=== PATIENT | female | born 1970 | race Caucasian/White ===

== ENCOUNTER 2025-03-09 06:34 | Day surgery (SDC) | payer MEDICAID, SELFPAY ==
--- NOTE | 2025-03-02 17:15 | PAT.ANESEVAL ---
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 When Was Last Pacemaker Check QUESTION #4 FULL TEXT: You/Your Family Experience fever (hyperthermia) with Anesthesia Last Oral Intake Last Oral intake: Last Oral Intake NPO since Meds taken in AM with sips of water? 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 director Female Yes 02/28/25 08:30 HX of Motion Sickness Yes 02/28/25 08:30 HX of N/V After Surgery No 02/28/25 08:30 Non-Smoker Yes 02/28/25 08:30 Duration of Surgery greater No 02/28/25 08:30 than 60 minutes Number of Risk Factors 3 02/28/25 08:30 PONV Score Moderate Risk 02/28/25 08:30 Respiratory Assessment Respiratory Assessment - chemical plant technical director: Respiratory Tract Infection Hx - chemical plant technical director Hx Respiratory Tract Infection No 02/28/25 08:30 STOP Sleep Apnea STOP Sleep Apnea - chemical plant technical director: STOP Sleep Apnea - chemical plant technical director Hx Hypertension No 02/28/25 08:30 Hx Sleep Apnea No 02/28/25 08:30 CPAP BIPAP Do you snore loudly (louder No 02/28/25 08:30 than talking or can be heard Do you often feel tired/ No 02/28/25 08:30 fatigued/ sleepy during daytime? Has anyone observed you stop No 02/28/25 08:30 breathing during sleep? STOP Results Negative 02/28/25 08:30 QUESTION #5 FULL TEXT : Do you snore loudly (louder than talking or can be heard through closed doors)? 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 Specify any problems Hx of Preganancy in last 3 No 02/28/25 08:30 Months Nurse Filling Out Transfusion DSCHRIBER 02/28/25 08:30 & Questions: Date: 02/28/25 02/28/25 08:30 Time: 02/28/25 08:30 Patient unable to answer at this time (ie. confused, unrespo /Reproduction History /Reproductive History - chemical plant technical director: /Reproductive Hx- chemical plant technical director Hx Now No 02/28/25 08:30 Gestational Age (in weeks): EDC: Hx Hx Para Hx Section SAB No 02/28/25 08:30 PFSH Medical History (Updated 03/02/25 @ 11:49 by Julita Bernal) Hx of echocardiogram Fear of needles Depression Anxiety Back pain Loss of consciousness Syncope Non-smoker Cardiology follow-up encounter Home Medications Medication Instructions Recorded Last Taken Type sertraline 100 mg tablet 100 mg PO QHS 02/28/25 Unknown History Allergy/AdvReac Type Severity Reaction Status Date / Time prochlorperazine (From AdvReac Intermediate Other Verified 02/28/25 08:27 Compazine) tramadol (From [facility]) AdvReac Intermediate Nausea/Vom/ Verified 02/28/25 08:27 Diarrhea Surgical History (Updated 02/28/25 @ 08:40 by Julita Bernal) Hx of tonsillectomy Hx laparoscopic cholecystectomy History of Social History Smoking Status: Never smoker Audit: Pertinent Findings Pertinent Findings EKG Perinent findings: April 14, 2022. Normal sinus rhythm. Echo (EF%) pertinent findings: 04/10/2022. EF is 73%. Right ventricular systolic function is normal. No significant valvular abnormalities. Consult pertinent findings: 04/14/2022. Dr. Washington–cardiology. 1. Vasovagal syncope-patient had episode at age 15 and now a repeat episode when walking to a hot room. All symptoms consistent with vasovagal presyncope. Neurology agrees with this assessment. Pathophysiology and early recognition strategies discussed. Last echo performed April 10, 2022 was normal. Recommendation Anesthesia Recommendation Anesthesia recommendation: OPTIMIZED for anesthesia
[2025-03-09] VITALS (7 sets, daily range): BP systolic 111–116; BP diastolic 60–76; PULSE 77–81; RESP 16–18; TEMP 36.3–36.8; O2SAT 94–98; BMI 25.4
--- OUTSIDE RECORDS SUMMARY | 2025-03-09 06:40 | XMS RPT_ITS | CCD ---
Author Organization [facility] Care Team Providers Care Rover Tender Name Role Phone Agustina Kay MD Primary Care Provider AGUSTINA KAY Primary Care Unavailable MD YOHAN, LION.Joey Attending Unavailabl e Agustina Kay MD Primary Care Provider Agustina Kay MD Primary Care Provider Morgan PRODUCT ACCOUNTANT.TRUCK ENGINE ASSEMBLER, Renuka Unavailable Aurelio PRODUCT ACCOUNTANT.FUR DYER, Mayra Unavailable Aurelio PRODUCT ACCOUNTANT.FUR DYER, Mayra Unavailable Aurelio PRODUCT ACCOUNTANT.FUR DYER, Mayra Unavailable Morgan PRODUCT ACCOUNTANT.TRUCK ENGINE ASSEMBLER, Renuka Unavailable Talampas, Agustina D Primary Care Unavailable Wiswell, Ermias Referring Unavailable Wiswell, Ermias Attending Unavailable WISWELL, ERMIAS Referring Unavailable TALAMPAS, AGUSTINA D Primary Care Unavailable WISWELL, ERMIAS Attending Unavailable TALAMPAS, AGUSTINA D Primary Care Unavailable TALAMPAS, AGUSTINA D Primary Care Unavailable WISWELL, ERMIAS Attending Unavailable WISWELL, ERMIAS Referring Unavailable WISWELL, ERMIAS Referring Unavailable TALAMPAS, AGUSTINA D Primary Care Unavailable WISWELL, ERMIAS Attending Unavailable TALAMPAS, AGUSTINA D Primary Care Unavailable WISWELL, ERMIAS Referring Unavailable TALAMPAS, AGUSTINA D Primary Care Unavailable TALAMPAS, AGUSTINA D Primary Care Unavailable TALAMPAS, AGUSTINA D Attending Unavailable TALAMPAS, AGUSTINA D Primary Care Unavailable TALAMPAS, AGUSTINA D Attending Unavailable Allergies Allergy Classification Reported Allergen(s) Allergy Type Date of Onset Reaction(s) Facility (20 sources) Azithromycin; Translations: [AZITHROMYCIN] Drug Allergy 5 Diarrhea [facility] Work Phone: (20 sources) methylPREDNISolone; Translations: [METHYLPREDNISOLONE] Drug Allergy 2 Other: See Comments [facility] Work Phone: (20 sources) Prochlorperazine; Translations: [PROCHLORPERAZINE EDISYLATE] Drug Allergy 5 Mental Status Change [facility] (20 sources) traMADol; Translations: [TRAMADOL HCL] Drug Allergy 5 Vomiting [facility] (20 sources) zolpidem; Translations: [ZOLPIDEM] Drug Allergy Other: See Comments [facility] Work Phone: (1 source) Prochlorperazine Drug Allergy 5 [facility] Rep[facility] (1 source) traMADol Drug Allergy 5 [facility] Medications Current Medications Medication Drug Class(es) Dates Sig (Normalized) Sig (Original) ALPRAZolam 0.25 mg oral tablet (20 sources) Benzodiazepine Start: 10-18-2024 End: 03-13-2025 take 1 tablet by mouth twice daily as needed for anxiety ALPRAZolam (XANAX) 0.25 mg tablet Indications: Anxiety and depression Take 1 tablet by mouth two times a day as needed for anxiety for up to 60 days. 40 tablet 01/12/2025 03/13/2025 Active Start: 04-03-2024 End: 09-17-2024 take 1 tablet by mouth twice daily as needed for anxiety ALPRAZolam (XANAX) 0.25 mg tablet Indications: Anxiety and depression Take 1 tablet by mouth two times a day as needed for anxiety for up to 60 days. 40 tablet 07/19/2024 09/17/2024 Active Start: 05-25-2023 End: 03-03-2024 take 1 tablet by mouth twice daily as needed for anxiety ALPRAZolam (XANAX) 0.25 mg tablet Indications: Anxiety and depression Take 1 tablet by mouth two times a day as needed for anxiety for up to 60 days. 40 tablet 01/03/2024 03/03/2024 Active Start: 01-06-2022 End: 02-15-2023 take 1 tablet by mouth twice daily as needed for anxiety ALPRAZolam (XANAX) 0.25 mg tablet Indications: Anxiety and depression Take 1 tablet by mouth twice daily as needed for anxiety for up to 60 days. 40 tablet 0 06/08/2022 10/01/2022 Discontinued Start: 06-30-2021 take 1 tablet by kera th twice daily as needed for anxiety ALPRAZolam (XANAX) 0.25 mg tablet Indications: Anxiety and depression Take 1 tablet by mouth twice daily as needed for anxiety for up to 60 days. 40 tablet 0 06/30/2021 Active Comment on above: Take 1 tablet by kera th twice daily as needed for anxiety for up to 60 days. Take 1 tablet by kera th two times a day as needed for anxiety for up to 60 days. ondansetron 4 mg disintegrating oral tablet (14 sources) Serotonin-3 Receptor Antagonist Start: 05-04-20 End: 01-13-20 take 1 tablet by mouth every six hours as needed for nausea ondansetron orally disintegrating (ZOFRAN ODT) 4 mg disintegrating tablet Indications: Motion sickness, sequela Take 1 tablet by mouth every 6 hours as needed for nausea/vomiting. 12 tablet 01/12/2025 Active Comment on above: Take 1 tablet by kera th every 6 hours as needed for nausea/vomiting. perflutren lipid microspheres 1.3 mL in NaCl (PF) 0.9% 10 mL injection (DEFINITY) (14 sources) Start: 04-06-20 End: 07-06-19 24 perflutren lipid microspheres 1.3 mL in NaCl (PF) 0.9% 10 mL injection (DEFINITY) sertraline 100 mg oral tablet (20 sources) Serotonin Reuptake Inhibitor Start: 07-01-19 End: 01-13-20 take 1 tablet by mouth once daily sertraline (ZOLOFT) 100 mg tablet Indications: Anxiety and depression Take 1 tablet by mouth once daily. 90 tablet 3 01/12/2025 Active Start: 04-06-2022 End: 07-01-2022 take 1 tablet by mouth once daily sertraline (ZOLOFT) 50 mg tablet Indications: Anxiety and depression Take 1 tablet by mouth once daily. 90 tablet 3 04/06/2022 07/01/2022 Discontinued Start: 07-11-2021 End: 04-06-2022 take 1 tablet by mouth once daily sertraline (ZOLOFT) 100 mg tablet Indications: Anxiety and depression Take 1 tablet by mouth once daily. 90 tablet 3 11/07/2021 04/06/2022 Discontinued Comment on above: Take 1 tablet by kera once daily. 125 ml sodium chloride 9 mg/ml prefilled syringe (14 sources) Start: 04-06-2022 End: 07-06-2023 sodium chloride 0.9 % (flush) 10 mL (BD POSIFLUSH) Problems Active Problems Problem Classification Problem Date Documented Da te Episodic/Chronic Anxiety disorders (20 sources) Mixed anxiety and depressive disorder; Translations: [Anxiety disorder, unspecified] Onset: 03-30-2005 Chronic Coagulation and hemorrhagic disorders (20 sources) Platelet count below reference range; Translations: [Thrombocytopenia, unspecified] Onset: 09-15-2010 09-15-2010 Chronic Coma; stupor; and brain damage (1 source) Loss of consciousness; Translations: [Unspecified coma] Episodic Epilepsy; convulsions (2 sources) Unspecified convulsions; Translations: [Seizure] Onset: 04-03-2022 Episodic Immunizations and screening for infectious disease (6 sources) Viral screening status; Translations: [Encounter for screening for other viral diseases] Onset: 01-12-2025 Episodic Menstrual disorders (1 source) Irregular menstruation, unspecified; Translations: [Irregular menstruation, unspecified] Onset: 03-06-2025 Chronic Mood disorders (12 sources) Depressive disorder; Translations: [Other specified depressive episodes] Onset: 03-30-2005 03-30-2005 Chronic Mood disorders (1 source) Mood disorders; Translations: [Anxiety and depression] Onset: 07-31-2022 Nonmalignant breast conditions (2 sources) Breast finding ; Translations: [Dense breasts] 01-03-2024 Episodic Other aftercare (1 source) Long-term current use of drug therapy; Translations: [Other buttermaker helper (current) drug therapy] 07-19-2024 Episodic Other female genital disorders (1 source) Other specified abnormal uterine and vaginal bleeding; Translations: [DUB (dysfunctional uterine bleeding)] Onset: 03-06-2025 Chronic Other injuries and conditions due to external causes (1 source) Motion sickness; Translations: [Motion sickness, sequela] 01-12-2025 Episodic Other injuries and conditions due to external causes (1 source) Motion sickness, sequela; Translations: [Motion sickness, sequela] Onset: 01-12-2025 Episodic Other non-traumatic joint disorders (1 source) Shoulder pain; Translations: [Pain in right shoulder] Episodic Other nutritional; endocrine; and metabolic disorders (1 source) Cholesterol level - finding; Translations: [Lipoprotein deficiency] 07-19-2024 Chronic Other nutritional; endocrine; and metabolic disorders (1 source) Overweight; Translations: [Overweight (BMI 25.0-29.9)] Onset: 03-06-2025 Episodic Other screening for suspected conditions (not mental disorders or infectious disease) (20 sources) Patient encounter status; Translations: [Encounter for screening for diabetes mellitus] Onset: 04-14-2022 Episodic Spondylosis; intervertebral disc disorders; other back problems (1 source) Spasm of back muscles; Translations: [Muscle spasm of back] 01-03-2024 Episodic Unclassified (1 source) Pre-Op Visit Onset: 03-05-2025 Past or Other Problems Problem Classification Problem Date Documented Date Episodic/Chronic Other circulatory disease (10 sources) Cardiovascular finding; Translations: [Other specified symptoms and signs involving the circulatory and respiratory systems] Onset: 03-30-2005 Resolved: 12-09-2015 12-09-2015 Episodic Other complications of (10 sources) Multigravida of advanced maternal age; Translations: [Supervision of elderly multigravida, unspecified trimester] Onset: 06-10-2010 Resolved: 01-19-2011 01-19-2011 Episodic Other complications of (10 sources) Poor growth affecting management; Translations: [Maternal care for other known or suspected poor growth, unspecified trimester, not applicable or unspecified] Onset: 06-10-2010 Resolved: 01-19-2011 01-19-2011 Episodic Other complications of (10 sources) Mild hyperemesis gravidarum; Translations: [Mild hyperemesis gravidarum] Onset: 06-10-2010 Resolved: 01-19-2011 01-19-2011 Episodic Other connective tissue disease (17 sources) Left rotator cuff syndrome; Translations: [Unspecified rotator cuff tear or rupture of left shoulder, not specified as traumatic] Onset: 07-31-2022 Episodic Other endocrine disorders (10 sources) Hypoglycemia; Translations: [Hypoglycemia, unspecified] Onset: 03-30-2005 Resolved: 12-09-2015 12-09-2015 Chronic Other and delivery including normal (10 sources) Normal ; Translations: [Encounter for supervision of other normal , unspecified trimester] Onset: 06-10-2010 Resolved: 01-19-2011 01-19-2011 Episodic Residual codes; unclassified (20 sources) Insomnia; Translations: [Insomnia, unspecified] Onset: 03-30-2005 03-30-2005 Episodic Syncope (20 sources) Syncope and collapse; Translations: [Syncope] Onset: 04-03-2022 Episodic Unclassified (1 source) Patient encounter status 08-10-2024 Results Test Name Value Interpretation Reference Range Facility T3Free SerPl-mCncon 03-06-20 25 Free T3 [Mass/Vol] 3.0 pg/mL Normal 2.3-4.1 [facility] Comment on above: Order Comment: Speci nicholas Type: BLOOD SPECIMENOrdering Facility: [facility] Address: [address] [place] [address] Performed By: #### 3 051-0, 3016-3, 3027 ####[facility] LABCLIA [id number] [place] [address] [place] T4 Free SerPl-mCncon 025 Free T4 [Mass/Vol] 1.0 ng/dL Normal 0.9-1.7 [facility] Comment on above: Order Comment: Galeni nicholas Type: BLOOD SPECIMENOrdering Facility: [facility] Address: [address] [place] [address] Performed By: #### 3 051-0, 3016-3, 7 ####[facility] LABCLIA [id number] [place] [address] [place] TSH SerPl-aCncon 03-06-2025 TSH Qn 1.800 m[IU]/L Normal 0.270-4.200 [facility] Comment on above: Order Comment: Joelle peterson Type: BLOOD SPECIMENOrdering Facility: [facility] Address: [address] [place] [address] Performed By: #### 3 051-0, 3016-3, 3024-7 ####[facility] LABCLIA [id number] [address] [facility] CNOVon 03-05-2025 CNOV Office Visit (OBGYWM ) ALISHAMIKHAIL Robles ([id number]) 1970 F Date Time Provider Department 03/05/25 4:20 PM ERMIAS BETTENCOURT OBGYWM During your visit today, we recorded the following information about you: Pulse Respiration Blood pressure Weight 79/minute 14/minute 108/76 75.6 kg Height 1.727 m Ermias Bettencourt MD 03/06/2025 9:51 AM Signed DATE OF SERVICE: March 05, 2025 PROBLEM: DUB, polyp on pelvic US, stenotic cervix DIAGNOSIS: as above PAST SURGICAL HISTORY: PAST SURGICAL HISTORY Procedure Laterality Date DELIVERY ONLY 10/30/2003 , low cervical DELIVERY ONLY 2010 , low transverse CHOLECYSTECTOMY 2001 LIG/TRNSXJ FLP TUBE ABDL/VAG APPR UNI/BI 2010 Tubal ligation PAST SURGICAL HISTORY OF WISDOM TEETH EXTRACTION TONSILLECTOMY PRIMARY/SECONDARY PAST MEDICAL HISTORY: PAST MEDICAL HISTORY Diagnosis Date Dysthymic disorder Depression (non-psychotic) Mitral valve disorders(424.0) pt. questions. SUBJECTIVE: Patient had an episode of heavy prolonged bleeding. Picked up Aygestin rx but bleeding stopped so has not needed to start it. SOCIAL HISTORY: SOCIAL HISTORY[1] ALLERGIES Allergen Reactions Ambien [Zolpidem] Other: See Comments Sleep walking and eating in middle of the night Compazine [Prochlor* Mental Status Change Medrol [Methylpredn* Other: See Comments Possible rash/dermatitis Ultram [Tramadol Hc* Vomiting Zithromax [Azithrom* Diarrhea Current Outpatient Medications on File Prior to Visit Medication Sig norethindrone (AYGESTIN) 5 mg tablet Take 1 tablet by mouth as directed. one by mouth tid x 3 days, bid x 3 days, then daily ALPRAZolam (XANAX) 0.25 mg tablet Take 1 tablet by mouth two times a day as needed for anxiety for up to 60 days. ondansetron orally disintegrating (ZOFRAN ODT) 4 mg disintegrating tablet Take 1 tablet by mouth every 6 hours as needed for nausea/vomiting. sertraline (ZOLOFT) 100 mg tablet Take 1 tablet by mouth once daily. No current facility-administered medications on file prior to visit. OBJECTIVE: VITALS: BP 108/76 Pulse 79 Resp 14 Ht 172.7 cm (5' 8") Wt 75.6 kg (166 lb 9.6 oz) LMP 01/14/2025 SpO2 98% BMI 25.33 kg/m? HEENT: Normocephalic, atraumatic, Mucus membranes moist without lesions. SKIN: No lesions. CHEST: Clear to auscultation. No wheezes or rales. Good air exchange. HEART: Regular rate and rhythm No S3 or S4. No gallops or rubs. BACK: Nontender. ABDOMEN: Non-distended. LOWER EXTREMITIES: There was no pitting edema, no palpable cords and no skin changes. ASSESSMENT: pre op PLAN: 1) Reviewed pelvic ultrasound findings and and questions answered. Discussed r/b/a hysteroscopy, DANDC, polypectomy. Patient declines progesterone IUD at this time. The rationale for the proposed surgery was discussed in addition to risks, benefits, and alternatives. General pre- and post-operative care was reviewed. Questions were answered. After discussion, the patient indicated a desire to proceed with the planned surgery. Patient would like thyroid labs checked. Pre procedural Cytotec rx sent. Ermias Bettencourt DO Medical Decision Making: Problems: Moderate: New problem with uncertain prognosis Data: Unique test(s) ordered: 3+ Risk: Moderate: Decision on minor surgery w/ risk factors and Drug management Medical Decision Making Level: 4 - Moderate [1] Social History Tobacco Use Smoking status: Never Smokeless tobacco: Never Vaping Use Vaping status: Never Used Substance Use Topics Alcohol use: No Drug use: No Allergies As of Date: 03/05/2025 Noted Allergy Reaction AMBIEN (ZOLPIDEM) 14 - Other: See Comments Comments: Sleep walking and eating in middle of the night COMPAZINE (PROCHLORPERAZINE EDISY*03/12/2005 1 - Mental Status Change MEDROL (METHYLPREDNISOLONE) 10/20/2011 14 - Other: See Comments Comments: Possible rash/dermatitis ULTRAM (TRAMADOL HCL) 03/12/2005 11 - Vomiting ZITHROMAX (AZITHROMYCIN) 04/16/2005 6 - Diarrhea Date Reviewed: 03/05/2025 Reviewed by: Marisol Parikh MA - Fully Assessed Reason for Visit: Pre-Op Visit [1235] Primary Visit Diagnosis:DUB (dysfunctional uterine bleeding) [N93.8] Other Visit Diagnoses:Overweight (BMI 25.0-29.9) [E66.3] Irregular menstruation, unspecified [N92.6] Stenotic cervical os [N88.2] Endocervical polyp [N84.1] Order(s):THYROID STIMULATING HORMONE [SQTSH] Order #: [id number] FUTURE T4 FREE/FREE THYROXINE [SQFT4] Order #: [id number] FUTURE T3, FREE [SQFREET3] Order #: [id number] FUTURE miSOPROStol (CYTOTEC) 200 mcg tabletUse 2 tablets vaginally as directed for [address] 2 tablets vaginally qhs before the procedure and 2 the morning ofDisp: 4 tabletRfl: 0 Prescriptions as of 03/06/2025 - miSOPROStol (CYTOTEC) 200 mcg tablet Use 2 tablets vaginally as directed for [address] 2 tablets vaginal (more content not included)... Normal [facility] HISTORY PHYSICALon HISTORY PHYSICAL HNO ID: [id number] Author: ERMIAS BETTENCOURT MD Service: ? Author Type: Physician Type: H&P Filed: 03/06/2025 09:51 Note Text: DATE OF SERVICE: March 05, 2025 PROBLEM: DUB, polyp on pelvic US, stenotic cervix DIAGNOSIS: as above PAST SURGICAL HISTORY: PAST SURGICAL HISTORY Procedure Laterality Date DELIVERY ONLY 10/30/2003 , low cervical DELIVERY ONLY 2010 , low transverse CHOLECYSTECTOMY 2001 LIG/TRNSXJ FLP TUBE ABDL/VAG APPR UNI/BI 2010 Tubal ligation PAST SURGICAL HISTORY OF WISDOM TEETH EXTRACTION TONSILLECTOMY PRIMARY/SECONDARY PAST MEDICAL HISTORY: PAST MEDICAL HISTORY Diagnosis Date Dysthymic disorder Depression (non-psychotic) Mitral valve disorders(424.0) pt. questions. SUBJECTIVE: Patient had an episode of heavy prolonged bleeding. Picked up Aygestin rx but bleeding stopped so has not needed to start it. SOCIAL HISTORY: SOCIAL HISTORY[1] ALLERGIES Allergen Reactions Ambien [Zolpidem] Other: See Comments Sleep walking and eating in middle of the night Compazine [Prochlor* Mental Status Change Medrol [Methylpredn* Other: See Comments Possible rash/dermatitis Ultram [Tramadol Hc* Vomiting Zithromax [Azithrom* Diarrhea Current Outpatient Medications on File Prior to Visit Medication Sig norethindrone (AYGESTIN) 5 mg tablet Take 1 tablet by mouth as directed. one by mouth tid x 3 days, bid x 3 days, then daily ALPRAZolam (XANAX) 0.25 mg tablet Take 1 tablet by mouth two times a day as needed for anxiety for up to 60 days. ondansetron orally disintegrating (ZOFRAN ODT) 4 mg disintegrating tablet Take 1 tablet by mouth every 6 hours as needed for nausea/vomiting. sertraline (ZOLOFT) 100 mg tablet Take 1 tablet by mouth once daily. No current facility-administered medications on file prior to visit. OBJECTIVE: VITALS: BP 108/76 Pulse 79 Resp 14 Ht 172.7 cm (5' 8") Wt 75.6 kg (166 lb 9.6 oz) LMP 01/14/2025 SpO2 98% BMI 25.33 kg/m? HEENT: Normocephalic, atraumatic, Mucus membranes moist without lesions. SKIN: No lesions. CHEST: Clear to auscultation. No wheezes or rales. Good air exchange. HEART: Regular rate and rhythm No S3 or S4. No gallops or rubs. BACK: Nontender. ABDOMEN: Non-distended. LOWER EXTREMITIES: There was no pitting edema, no palpable cords and no skin changes. ASSESSMENT: pre op PLAN: 1) Reviewed pelvic ultrasound findings and and questions answered. Discussed r/b/a hysteroscopy, DANDC, polypectomy. Patient declines progesterone IUD at this time. The rationale for the proposed surgery was discussed in addition to risks, benefits, and alternatives. General pre- and post-operative care was reviewed. Questions were answered. After discussion, the patient indicated a desire to proceed with the planned surgery. Patient would like thyroid labs checked. Pre procedural Cytotec rx sent. Ermias Bettencourt DO Medical Decision Making: Problems: Moderate: New problem with uncertain prognosis Data: Unique test(s) ordered: 3+ Risk: Moderate: Decision on minor surgery w/ risk factors and Drug management Medical Decision Making Level: 4 - Moderate [1] Social History Tobacco Use Smoking status: Never Smokeless tobacco: Never Vaping Use Vaping status: Never Used Substance Use Topics Alcohol use: No Drug use: No Normal [facility] MR/PAT.SADAFjoseph 03-02-2025 MR/PAT.SADAF [facility] Medical Records Department [address] [facility] [address] [place] [address] PAT - Anesthesia 03/02/25 1715 MR#: [id number] Acct: [id number] Name: MIKHAIL CHUNG Rep #: [id number] : 1970 54 From: Raymundo Cage MD PCP: Status:PRE SD Y Race: C Location: [facility] [place] [place] Pre-Assessment Diagnosis/Proposed Procedure Planned Operative Procedure(s): HYSTEROSCOPY D C Anesthesia History 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 When Was Last Pacemaker Check QUESTION #4 FULL TEXT: You/Your Family Experience fever (hyperthermia) with Anesthesia Last Oral Intake Last Oral intake: Last Oral Intake NPO since Meds taken in AM with sips of water? Meds patient instructed to take am of surgery PONV PONV - meat curer: PONV - meat curer Female Yes 02/28/25 08:30 HX of Motion Sickness Yes 02/28/25 08:30 HX of N/V After Surgery No 02/28/25 08:30 Non-Smoker Yes 02/28/25 08:30 Duration of Surgery greater No 02/28/25 08:30 than 60 minutes Number of Risk Factors 3 02/28/25 08:30 PONV Score Moderate Risk 02/28/25 08:30 Respiratory Assessment Respiratory Assessment - meat curer: Respiratory Tract Infection Hx - meat curer Hx Respiratory Tract Infection No 02/28/25 08:30 STOP Sleep Apnea STOP Sleep Apnea - meat curer: STOP Sleep Apnea - meat curer Hx Hypertension No 02/28/25 08:30 Hx Sleep Apnea No 02/28/25 08:30 CPAP BIPAP Do you snore loudly (louder No 02/28/25 08:30 than talking or can be heard Do you often feel tired/ No 02/28/25 08:30 fatigued/ sleepy during daytime? Has anyone observed you stop No 02/28/25 08:30 breathing during sleep? STOP Results Negative 02/28/25 08:30 QUESTION #5 FULL TEXT : Do you snore loudly (louder than talking or can be heard through closed doors)? 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 Specify any problems Hx of Preganancy in last 3 No 02/28/25 08:30 Months Nurse Filling Out Transfusion DSCHRIBER 02/28/25 08:30 Questions: Date: 02/28/25 02/28/25 08:30 Time: 08:31 02/28/25 08:30 Patient unable to answer at this time (ie. confused, unrespo /Reproduction History /Reproductive History - meat curer: /Reproductive Hx- meat curer Hx Now No 02/28/25 08:30 Gestational Age (in weeks): EDC: Hx Hx Para Hx Section SAB No 02/28/25 08:30 PFSH Medical History (Updated 03/02/25 @ 11:49 by Julita Bernal) Hx of echocardiogram Fear of needles Depression Anxiety Back pain Loss of consciousness Syncope Non-smoker Cardiology follow-up encounter Home Medications ???Medication ???Instructions ???Recorded ???Last Taken ???Type sertraline 100 mg tablet 100 mg PO QHS 02/28/25 Unknown His tory Allergy/AdvReac Type Severity Reaction Status Date / Time prochlorperazine (From AdvReac Intermediate Other Verified 02/28/25 08:27 Compazine) tramadol (From Ultram) AdvReac Intermediate Nausea/Vom/ Verified 02/28/25 08:27 Diarrhea Surgical History (Updated 02/28/25 @ 08:40 by Julita Bernal) Hx of tonsillectomy Hx laparoscopic cholecystectomy History of Social History Smoking Status: Never smoker Audit: Pertinent Findings Pertinent Findings EKG Perinent findings: April 14, 2022. Normal sinus rhythm. Echo (EF%) pertinent findings: 04/10/2022. EF is 73%. Right ventricular systolic function is normal. No significant valvular abnormalities. Consult pertinent findings: 04/14/2022. Dr. [place]? (more content not included)... Normal [facility] 02-14-2025 [facility] Telephone (OBGYWM) MIKHAIL CHUNG ([id number]) 1970 F Date Time Provider Department 02/14/25 ERMIAS BETTENCOURT OBGYWM During your visit today, we recorded the following information about you: Debbie Brooks LPN 02/14/2025 9:17 AM Signed Patient seen at office 02/01 for EMB and called stating that she started spotting 01/28/2025 and after attempted EMB on 02/01 began to have moderate bright red vaginal bleeding that has not stopped and states that her normal menses only last 4 days. LMP was 01/14/2025. patient denies veritigo, no c/o of CP or shortness of breath. Patient scheduled for hysteroscopy DANDC polypectomy 03/09/25. Please advise Patient aware that provider is out of the office until . Ermias Bettencourt MD 02/15/2025 11:01 AM Signed Give bleeding precautions and reasons to go to ER. Will send in aygestin taper in case she experiences heavy bleeding prior to procedure. Otherwise keep scheduled procedure to eval irregular bleeding further. Lou Pyle RN 02/15/2025 11:11 AM Signed Patient notified. States she thinks it beginning to stop. She had very small amount on her tampon between 9 PM and 7 AM. Asking if her surgery for sure is on 03/09. Checked [employer] and her surgery is not posted. Lou Pyle RN Allergies As of Date: 02/14/2025 Noted Allergy Reaction AMBIEN (ZOLPIDEM) 14 - Other: See Comments Comments: Sleep walking and eating in middle of the night COMPAZINE (PROCHLORPERAZINE EDISY*03/12/2005 1 - Mental Status Change MEDROL (METHYLPREDNISOLONE) 10/20/2011 14 - Other: See Comments Comments: Possible rash/dermatitis ULTRAM (TRAMADOL HCL) 03/12/2005 11 - Vomiting ZITHROMAX (AZITHROMYCIN) 04/16/2005 6 - Diarrhea Date Reviewed: 02/01/2025 Reviewed by: Randa Orellana MA - Fully Assessed Reason for Visit: Patient Update [1234] Primary Visit Diagnosis:DUB (dysfunctional uterine bleeding) [N93.8] Order(s):norethindrone (AYGESTIN) 5 mg tabletTake 1 tablet by mouth as directed. one by mouth tid x 3 days, bid x 3 days, then dailyDisp: 50 tabletRfl: 0 Prescriptions as of 03/01/2025 - norethindrone (AYGESTIN) 5 mg tablet Take 1 tablet by mouth as directed. one by mouth tid x 3 days, bid x 3 days, then daily - ALPRAZolam (XANAX) 0.25 mg tablet Take 1 tablet by mouth two times a day as needed for anxiety for up to 60 days. - ondansetron orally disintegrating (ZOFRAN ODT) 4 mg disintegrating tablet Take 1 tablet by mouth every 6 hours as needed for nausea/vomiting. - sertraline (ZOLOFT) 100 mg tablet Take 1 tablet by mouth once daily. Problem List As Of Date 02/14/2025 Noted Resolved Weakness [R09.89] 03/30/2005 12/09/2015 Hypoglycemia, unspecified [E16.2] 03/30/2005 12/09/2015 INSOMNIA NOS [G47.00] 03/30/2005 Anxiety state [F41.1] 03/30/2005 Anxiety and depression [F41.9, F32.A] 03/30/2005 Supervision of other normal [Z34.80] 06/10/2010 01/19/2011 ADVANCED MATERNAL AGE:MULTIPARA[659.63] [O09.52*06/10/2010 01/19/2011 PREV DELIVERY [654.23] [O34.219] 06/10/2010 01/19/2011 Poor grth-antepart [O36.5990] 06/10/2010 01/19/2011 Mild hyperemesis gravidarum, antepartum [O21.0] 06/10/2010 01/19/2011 Thrombocytopenia, unspecified [D69.6] 09/15/2010 Vasovagal syncope [R55] 04/14/2022 Abnormal electrocardiogram [R94.31] 04/14/2022 Rotator cuff syndrome of left shoulder [M75.102]07/31/2022 Adenomyosis of the uterus [N80.03] 02/01/2025 Endocervical polyp [N84.1] 02/01/2025 Prescriptions ordered this encounter Disp Refills Start End NORETHINDRONE ACETATE 5 MG TABLET 50 t* 0 02/15/2025 Route: PO Sig: Take 1 tablet by mouth as directed. one by mouth tid x 3 days, bid x 3 days, then daily Encounter Status:Closed by DEBBIE BROOKS on 03/01/25 [facility] VASILEon 02-01-2025 CNOV Office Visit (OBGYWM ) MIKHAIL CHUNG ([id number]) 1970 F Date Time Provider Department 02/01/25 3:20 PM ERMIAS BETTENCOURT During your visit today, we recorded the following information about you: Pulse Blood pressure Weight 85/minute 98/60 75.3 kg Ermias Bettencourt MD 02/01/2025 5:38 PM Signed Supervisor Electronics Processing offered: Patient declines. Mikhail is a 54 year old Female who presents today for an endometrial biopsy for abnormal uterine bleeding. test: negative UNIVERSAL PROTOCOL / SAFETY CHECKLIST Procedure to be Performed: EMB Sign In: A Moment of CARE was completed. Appropriate PPE (Personal Protective Equipment) worn by all providers involved with the procedure. Special equipment not required. Patient/Surrogate Stated/Verified: Patient name, Date of , Relevant allergies, and The intended procedure Time Out: Relevant labs, photos, and/or imaging studies are not applicable. Intended patient and procedure match the source document(s) (e.g. consent, HANDP, associated studies [imaging, pathology]) match the intended patient and procedure. Consent obtained and matches the intended procedure. Yes. Correct side/site is not applicable. Medications required for this procedure are not applicable. Fire risk assessed and is not applicable. Implants: are not applicable. Sign Out: Specimens not collected. All instruments, equipment, possible retained foreign bodies are accounted for. Yes. The post-procedure plan of care has been communicated to the patient or surrogate. PROCEDURE: EXTERNAL GENITALIA: Normal in appearance without lesions VAGINA: Normal in appearance without lesions BIOPSY: Speculum placed into the vagina with excellent visualization of the cervix. Cervix cleaned with betadine. Anterior lip of cervix grasped with single toothed tenaculum. The cervix was stenotic. Attempted to dilate the cervix with dilators but unable to dilate past the internal cervical os. Sounded to 4 cm. Procedure Summary: Patient tolerated procedure well. ASSESSMENT: abnormal uterine bleeding PLAN: Stenotic cervix and unable to dilate. Discussed hysteroscopy DANDC. Will wait for pelvic US report to determine next step. DO Reyna Cuellar [place], MA 02/01/2025 3:22 PM Signed Post-Procedure Instructions Endometrial Biopsy Instructions: You may experience irregular bleeding / spotting for up to a week after this procedure. Use a panty liner or pad instead of tampons for about one week. Avoid vaginal intercourse or putting anything in your vagina for about one week. Pain Control / Medications: Take 600 mg of ibuprofen (Advil, Motrin, etc.) or 1000 mg of acetaminophen (Tylenol) every 6 hours as needed for pain Do not take more than 2400 mg of ibuprofen or 4000 mg of acetaminophen in any 24 hour period You can also put a heating pad on your abdomen to help with pain. Call your provider's office if you: Have a fever greater than 100.4? F (38.0? C) Have very heavy bleeding (soaking 1 large pad an hour for 2 hours in a row) Prolonged vaginal bleeding for > 7 days following your procedure Have severe cramps that do not go away after you take ibuprofen or acetaminophen Have foul smelling vaginal discharge Follow-Up: Your specific follow up plan will depend on the results of the biopsy. Most biopsy results are available in 3 to 5 business days via [employer], unless a different method of communication was discussed today with your provider. Referring Provider: ERMIAS BETTENCOURT [[id number]] Allergies As of Date: 02/01/2025 Noted Allergy Reaction AMBIEN (ZOLPIDEM) 14 - Other: See Comments Comments: Sleep walking and eating in middle of the night COMPAZINE (PROCHLORPERAZINE EDISY*03/12/2005 1 - Mental Status Change MEDROL (METHYLPREDNISOLONE) 10/20/2011 14 - Other: See Comments Comments: Possible rash/dermatitis ULTRAM (TRAMADOL HCL) 03/12/2005 11 - Vomiting ZITHROMAX (AZITHROMYCIN) 04/16/2005 6 - Diarrhea Date Reviewed: 02/01/2025 Reviewed by: Randa Orellana MA - Fully Assessed Reason for Visit: Endometrial Biopsy [1611] Primary Visit Diagnosis:DUB (dysfunctional uterine bleeding) [N93.8] Order(s):UA DIP,URINE HCG (POC) [0766078] Order #: [id number]. #:[id number] Prescriptions as of 02/01/2025 - ALPRAZolam (XANAX) 0.25 mg tablet Take 1 tablet by mouth two times a day as needed for anxiety for up to 60 days. - ondansetron orally disintegrating (ZOFRAN ODT) 4 mg disintegrating tablet Take 1 tablet by mouth every 6 hours as needed for nausea/vomiting. - sertraline (ZOLOFT) 100 mg tablet Take 1 tablet by mouth once daily. Problem List As Of Date 02/01/2025 Noted Resolved Weakness [R09.89] 03/30/2005 12/09/2015 Hypoglycemia, unspecified [E16.2] 03/30/2005 12/09/2015 INSOMNIA NOS [G47.00] 03/30/2005 Anxiety state [F41.1] (more content not included)... Normal [facility] CNOVon 01-29-2025 CNOV Office Visit (OBGYWM ) MIKHAIL CHUNG ([id number]) 1970 F Date Time Provider Department 01/29/25 9:00 AM ERMIAS BETTENCOURT OBJASSON During your visit today, we recorded the following information about you: Blood pressure Weight Height Last Period 100/70 75.1 kg 1.727 m 01/14/25 Ermias Bettencourt MD 01/29/2025 9:40 AM Signed Supervisor Electronics Processing offered: Patient declines. Mikhail is a 54 year old who presents for an annual gynecologic exam without complaints. Postmenopausal: No. Menstrual cycle every 28-30 days Flow 4 days. Getting more spotting in between periods now too. Skipped 1-2 menses this year. Having spotting mid cycle and that is not always after missed period HRT use: No. Still get period: Yes Bleeding amount bothersome: No Bleeding between periods: No Period symptoms: Cramps Menopause symptoms: Night sweats infrequent and managed with a fan Number of lifetime partners: 1 control frequency: Never HPV vaccine: No; Last pap smear: 02/24/2022 History of abnormal pap: No, all prior PAP smears have been normal Bothersome pelvic pain: No Last mammogram: today results pending History of abnormal mammogram: No OB History Gravida2 Para2 Term2 Preterm0 AB0 Living2 SAB0 IAB0 Ectopic0 Multiple0 Live Births2 Radiologic Electronic Specialist History LMP: 01/14/2025, Having periods Age at Menarche: 15 Age at First : Age at Menopause: Radiologic Electronic Specialist History Comments: Sexual Activity: Not Currently; Male Contraception: Tubal Ligation Menstrual Tracking History Flowsheet Row Office Visit from 01/29/2025 in OB/Gynecology Period Cycle (Days) 26 Period Duration (Days) 4 Menstrual Flow Moderate PAST MEDICAL HISTORY Diagnosis Date Dysthymic disorder Depression (non-psychotic) Mitral valve disorders(424.0) pt. questions. PAST SURGICAL HISTORY Procedure Laterality Date DELIVERY ONLY 10/30/2003 , low cervical DELIVERY ONLY 2010 , low transverse CHOLECYSTECTOMY 2001 LIG/TRNSXJ FLP TUBE ABDL/VAG APPR UNI/BI 2010 Tubal ligation PAST SURGICAL HISTORY OF WISDOM TEETH EXTRACTION TONSILLECTOMY PRIMARY/SECONDARY FAMILY HISTORY Problem Relation Age of Onset Diabetes Mother Diet Controled other (tachycardia) Mother Heart Paternal Grandfather Allergies Daughter Tree Nuts SOCIAL HISTORY Social History Tobacco Use Smoking status: Never Smokeless tobacco: Never Vaping Use Vaping status: Never Used Substance Use Topics Alcohol use: No Drug use: No REVIEW OF SYSTEMS Abdomen: No abdominal pain, nausea, vomiting, diarrhea, or constipation. Bladder: No dysuria, gross hematuria, urinary frequency, urinary urgency, or incontinence Breast: No breast lumps, nipple d/c, overlying skin changes, redness or skin retraction Allergies and current medication updated:Yes SENSITIVE EXAM: The sensitive examination was discussed with the Patient or Patient's Authorized Health Diagnostics Teacher. As applicable, any other physician, advance practice provider, medical student, or other health professional student that will be observing or involved in the sensitive examination for educational or training purposes was discussed with the Patient or Authorized Health Diagnostics Teacher. The Patient or Authorized Health Diagnostics Teacher has agreed to proceed with the sensitive examination. (Sensitive examination includes inspection and/or palpation of the breasts, pelvis, prostate and anorectal regions). EXAM: BP 100/70 Ht 5' 8" (1.73m) Wt 165 lb 9.6 oz (75.1kg) LMP 01/14/2025 BMI 25.19 kg/(m2). GENERAL: pleasant, female in no apparent distress HEENT: Normocephalic and atraumatic NECK: full range of motion DERMATOLOGY: Normal, without lesions, non-icteric, and non-hirsute BREAST: soft, non-tender, symmetric, no dominant mass, normal nipple-areolar complex, no lymphadenopathy, and no nipple discharge CHEST: Normal inspiratory effort ABDOMEN: soft, non-tender, and no masses PELVIC: external genitalia normal, normal Bartholin's glands, urethra, [place]'s glands, no vulvar lesions, no cervical lesions, good vaginal support, normal appearing perineal body and perianal region, brown blood that is scant BIMANUAL: uterus normal size, shape and consistency, no adnexal masses, and non-tender RECTOVAGINAL: deferred. NEURO: exam grossly non-focal EXTREMITIES: normal ASSESSMENT/PLAN: 1) Health maintenance: Pap/HPV up to date. Mammogram up to date Nutrition, exercise and routine health maintenance exams reviewed. Colon cancer screening: PCP ordered TSH/lipids/glucose: followed by PCP DUB: Check pelvic US and EMB. Discussed menopausal expectations 2) Follow up one year or sooner as needed Ermias Bettencourt, Allergies As of Date: 01/29/2025 Noted Allergy Reaction AMBIEN (ZOLPIDEM) 14 - Other: See Comments Comments: Sleep walking and eating in middle of the night ALEXANDRA (more content not included)... Normal [facility] DANY SCREENING W TOMOon 01-29 DANY SCREENING W MEHUL * * *Final Report* * * DATE OF EXAM: Jan 29 2025 8:47AM WR [id number] - DANY SCREENING W MEHUL / PROCEDURE REASON: Encounter for screening mammogram for breast cancer * * * * Physician Interpretation * * * * RESULT: [facility] [address] [address] [place] [address] #[id number] - DANY SCREENING W MEHUL HISTORY: 54 year-old patient presents for screening. Patient is asymptomatic in both breasts. Patient states no personal history of breast cancer. COMPARISON STUDIES: The present examination has been compared to prior imaging studies dated 03/05/2021 (mammogram), 04/13/2022 (mammogram), 01/13/2023 (mammogram) and 01/27/2024 (mammogram). MAMMOGRAM TECHNIQUE: The study was acquired using full field digital technology and interpreted from soft copy. Digital Breast Tomosynthesis (DBT) images were obtained and used to assist in the interpretation of this examination. MAMMOGRAM FINDINGS: The breasts are heterogeneously dense, which may obscure small masses. No suspicious masses, calcifications or other abnormalities are seen in either breast. There are no significant interval changes. IMPRESSION: There is no mammographic evidence of malignancy in either breast. Routine screening mammogram is recommended. Annual mammogram will be due in 1 year. BI-RADS Category 1: Negative RISK: Based on the Tyrer-Cuzick (TC) risk assessment model, this patient has a 10.8% lifetime risk of developing breast cancer, meaning they are at average risk for developing breast cancer. However, this is only an estimate based on available history provided on the patient's questionnaire. We encourage all patients to talk with their providers about these results, further recommendations for managing breast health, and appropriate supplemental screening options if the patient has dense breast tissue. Interpreting Radiologist: Jenni Carrasco M.D. Electronically signed on: 01/30/2025 Optical Model Maker And Tester: SONJA Transcribe Date/Time: Jan 29 2025 8:33A Dictated by: JENNI CARRASCO MD This examination was interpreted and the report reviewed and electronically signed by: JENNI CARRASCO MD on Jan 30 2025 10:11AM EST [id number] Normal [facility] CNOVon 01-12-2025 CNOV Office Visit (INTMWS ) MIKHAIL CHUNG ([id number]) 1970 F Date Time Provider Department 01/12/25 8:40 AM AGUSTINA KAY INTMWS During your visit today, we recorded the following information about you: Pulse Respiration Blood pressure Weight 80/minute 16/minute 108/72 74.6 kg Agustina Kay MD 01/12/2025 9:49 AM Signed Subjective Mikhail Chung is a 54 year old female. HPI SUBJECTIVE: Mikhail Chung is a 54-year-old female presenting for medication refills. Mikhail requests refills for alprazolam, ondansetron, and sertraline. She reports that alprazolam is effective, with a 40-tablet supply lasting her a couple of months. She uses ondansetron for motion sickness, noting that her symptoms have worsened with age. She inquires if this is common, asking, "Do you think as you age sometimes it gets worse or no?" She finds relief by driving herself or sitting in the front seat of a vehicle. Sertraline is effective in maintaining emotional stability. She denies active seizures but mentions a past syncopal episode at a greenhouse, which was evaluated by a neurologist and mortgage broker. She denies lower extremity swelling, stating, "I haven't had swelling since I was ." She is scheduled for a colonoscopy and has upcoming lab work before her next appointment in July. 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 questions. Current Outpatient Medications Medication Sig ALPRAZolam (XANAX) 0.25 mg tablet Take 1 tablet by mouth two times a day as needed for anxiety for up to 60 days. ondansetron orally disintegrating (ZOFRAN ODT) 4 mg disintegrating tablet Take 1 tablet by mouth every 6 hours as needed for nausea/vomiting. sertraline (ZOLOFT) 100 mg tablet Take 1 tablet by mouth once daily. No current facility-administered medications for this visit. Review of Systems Objective BP 108/72 Pulse 80 Resp 16 Wt 74.6 kg (164 lb 7.4 oz) LMP 06/26/2024 (Exact Date) SpO2 99% BMI 25.01 kg/m? Last 5 Encounter Wt Readings: Date: Wt: 01/12/2025 74.6 kg (164 lb 7.4 oz) 07/19/2024 74.4 kg (163 lb 15.7 oz) 01/27/2024 76.1 kg (167 lb 12.8 oz) 01/03/2024 76.5 kg (168 lb 10.4 oz) 02/15/2023 80.3 kg (177 lb) No waist measurement recorded Estimated body mass index is 25.01 kg/m? as calculated from the following: Height as of 07/19/24: 172.7 cm (5' 8"). Weight as of this encounter: 74.6 kg (164 lb 7.4 oz). Last 5 Encounter BP Readings: Date: BP: 01/12/2025 108/72 07/19/2024 111/71 01/27/2024 102/72 01/03/2024 118/68 02/15/2023 106/66 Physical Exam Constitutional: Appearance: Normal appearance. HENT: Head: Normocephalic. Eyes: Conjunctiva/sclera: Conjunctivae normal. Cardiovascular: Rate and Rhythm: Normal rate and regular rhythm. Heart sounds: Normal heart sounds. Pulmonary: Effort: Pulmonary effort is normal. Breath sounds: Normal breath sounds. Musculoskeletal: Right lower leg: No edema. Left lower leg: No edema. Skin: General: Skin is warm and dry. Neurological: General: No focal deficit present. Mental Status: She is alert and oriented to person, place, and time. Psychiatric: Mood and Affect: Mood normal. Behavior: Behavior normal. Thought Content: Thought content normal. Judgment: Judgment normal. # Anxiety and depression (F41.9) - Stable on current regimen. - Continue sertraline as prescribed. - Continue alprazolam as prescribed; refill provided. # Motion sickness, sequela (T75.3XXS) - Stable; managed with ondansetron as needed. - Refill for ondansetron provided. # Encounter for immunization (Z23) - Administered influenza vaccine. Agustina Kay MD Recording using [employer] software for draft documentation of the visit was discussed with the patient/authorized international account representative; all questions welcomed and answered. Patient/authorized international account representative agreed to proceed Agustina Kay MD 01/12/2025 9:13 AM Addendum - Continue your alprazolam as before; a 40-tablet refill has been sent to your pharmacy (should last about two months). - Continue using ondansetron for motion sickness as needed; a 12-pill refill has been sent to your pharmacy. - Continue sertraline at your current dose; refills have been sent to your pharmacy. - Your flu vaccine was administered today. - Your colonoscopy screening order has been extended so it remains valid. - Complete the lab tests ordered before your July appointment (orders are active with an expected draw in June). Allergies As of Date: 01/12/2025 Noted Allergy Reaction AMBIEN (ZOLPIDEM) 14 - Other: See Comments Comments: Sleep walking and eating in middle of the night COMPAZINE (PROCHLORPERAZINE EDISY*03/12/2005 1 - Mental Status Change MEDROL (METHYLPREDNISOLONE) 10/20/2011 14 - Other: See Comments (more content not included)... Normal [facility] CNCOon 10-17-2024 CNCO Letter Text [facility] CNOVon 07-19-2024 CNOV Office Visit (INTMWS ) MIKHAIL CHUNG ([id number]) 1970 F Date Time Provider Department 07/19/24 8:40 AM AGUSTINA AKY INTMWS During your visit today, we recorded the following information about you: Pulse Respiration Blood pressure Weight 80/minute 16/minute 111/71 74.4 kg Height Last Period 1.727 m 06/26/24 Agustina Kay MD 08/10/2024 1:52 PM Signed This note was created using [employer]. Subjective Mikhail Chung is a 53 year old female. HISTORY Mikhail Chung is a 53 year old lady here for yearly exam and follow up appointment. Mikhail Chung is a 53-year-old female with a history of FARHANA, presenting for a follow-up visit. Mikhail reports that her current dosage of sertraline is effectively managing her anxiety symptoms, despite recent stressors. She confirms adherence to her medication regimen and has sufficient supply until her next scheduled appointment in January. She also has alprazolam on hand for acute anxiety episodes and requests a refill, describing it as a "safety net." She is working on improving her sleep hygiene, noting that she is a "night owl" and often experiences a burst of energy in the evening, which delays her bedtime. She is also focusing on maintaining a healthy lifestyle, including diet and exercise, to mitigate her risk of diabetes, given her family history of the condition. She has been gradually losing weight and is interested in increasing her muscle mass. She is up to date on her mammograms and Pap smears, but has not yet undergone colon cancer screening. She expresses a preference for a colonoscopy and requests to schedule one. She declines the hepatitis B and pneumonia vaccines at this time, but is considering the shingles vaccine in December. She is current on her tetanus vaccination, with the next dose due in 2032. She has two daughters, one of whom is graduating in April and plans to pursue a master's degree in speech-language pathology. 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 questions. Current Outpatient Medications Medication Sig ondansetron orally disintegrating (ZOFRAN ODT) 4 mg disintegrating tablet Take 1 tablet by mouth every 6 hours as needed for nausea/vomiting. ALPRAZolam (XANAX) 0.25 mg tablet Take 1 tablet by mouth two times a day as needed for anxiety for up to 60 days. sertraline (ZOLOFT) 100 mg tablet Take 1 tablet by mouth once daily. No current facility-administered medications for this visit. ALLERGIES Allergen Reactions Ambien [Zolpidem] Other: See Comments Sleep walking and eating in middle of the night Compazine [Prochlor* Mental Status Change Medrol [Methylpredn* Other: See Comments Possible rash/dermatitis Ultram [Tramadol Hc* Vomiting Zithromax [Azithrom* Diarrhea FAMILY HISTORY Problem Relation Age of Onset Diabetes Mother Diet Controled other (tachycardia) Mother Heart Paternal Grandfather Allergies Daughter Tree Nuts Social History Tobacco Use Smoking status: Never Smokeless tobacco: Never Vaping Use Vaping status: Never Used Substance Use Topics Alcohol use: No Drug use: No Review of Systems Objective BP 111/71 Pulse 80 Resp 16 Ht 172.7 cm (5' 8") Wt 74.4 kg (163 lb 15.7 oz) LMP 06/26/2024 (Exact Date) BMI 24.93 kg/m? Last 5 Encounter Wt Readings: Date: Wt: 07/19/2024 74.4 kg (163 lb 15.7 oz) 01/27/2024 76.1 kg (167 lb 12.8 oz) 01/03/2024 76.5 kg (168 lb 10.4 oz) 02/15/2023 80.3 kg (177 lb) 07/01/2022 79.8 kg (176 lb) No waist measurement recorded Estimated body mass index is 24.93 kg/m? as calculated from the following: Height as of this encounter: 172.7 cm (5' 8"). Weight as of this encounter: 74.4 kg (163 lb 15.7 oz). Last 5 Encounter BP Readings: Date: BP: 07/19/2024 111/71 01/27/2024 102/72 01/03/2024 118/68 02/15/2023 106/66 07/01/2022 118/84 Physical Exam Vitals reviewed. Constitutional: Appearance: Normal appearance. She is well-developed. HENT: Head: Normocephalic and atraumatic. Right Ear: Tympanic membrane, ear canal and external ear normal. Left Ear: Tympanic membrane, ear canal and external ear normal. Nose: Nose normal. Mouth/Throat: Mouth: Mucous membranes are moist. Eyes: Conjunctiva/sclera: Conjunctivae normal. Pupils: Pupils are equal, round, and reactive to light. Neck: Thyroid: No thyromegaly. Vascular: No carotid bruit. Cardiovascular: Rate and Rhythm: Normal rate and regular rhythm. Pulses: Normal pulses. Heart sounds: Normal heart sounds. No murmur heard. No friction rub. No gallop. Pulmonary: Effort: Pulmonary effort is normal. Breath sounds: Normal breath sounds. Abdominal: General: Bowel sounds are normal. There is no distension. Palpations: Abdomen is soft. There is no mass. Tenderness: (more content not included)... Normal [facility] DIAG W MEHUL BILATERALon 01-13-2023 [facility] DIAGNOSTIC BILATon 06-10 [facility] SCREENING W TOMOon 04-13 [facility] ALLIED HEALTHon 04-03-2022 ALLIED HEALTH HNO ID: [id number] Author: RT Rogers(R) Service: Radiology Author Type: Technologist Type: Allied Health Filed: 04/03/2022 1:31 PM Note Text: Radiology Service Progress Note PATIENT NAME: Mikhail Chung DATE OF SERVICE: April 03, 2022 TIME: 1:29 PM PATIENT IDENTITY VERIFICATION COMPLETED USING TWO (2) IDENTIFIERS: Name and Date of confirmed by patient verbally. FALL SCREENING: Has the patient had 2 falls in the last year or 1 fall with injury or currently using an Ambulatory Assistive Device (Walker, Cane, Wheelchair, Crutches, etc.)? Emergency Room Patient: Screened in ED PATIENT GENDER DATA: Female. status: : No status: NO. PATIENT RELEVANT IMPLANT DATA REVIEWED: Not Applicable RADIOLOGY DEPARTMENT: General X-ray: Exam(s) Completed: Chest X-Ray PERIPHERAL IV DATA: Not applicable SIGNED BY: RT Rogers(R) April 03, 2022 1:29 PM Normal [facility] CBC W Auto Differential pane l (Bld)on 04-03-2022 Basophils (Bld) [#/Vol] 10*3/uL Normal <0.11 [facility] Comment on above: Order Comment: Specquentin peterson Type: BLOOD SPECIMEN Ordering Facility: [facility] Address: [address] [place] [address] Performed By: #### 5 7021-8 #### [facility] CLIA [id number] [address] [place] Basophils/100 WBC (Bld) 0.2 % Normal [facility] Comment on above: Order Comment: Joelle peterson Type: BLOOD SPECIMEN Ordering Facility: [facility] Address: [address] [place] [address] Performed By: #### 5 7021-8 #### [facility] CLIA [id number] [address] [place] [address] [place] Differential cell count method Nom (Bld) Auto Normal [facility] Comment on above: Order Comment: Joelle peterson Type: BLOOD SPECIMEN Ordering Facility: [facility] Address: [address] [place] [address] Performed By: #### 5 7021-8 #### [facility] CLIA [id number] [address] [place] [address] [place] Eosinophils (Bld) [#/Vol] 0.17 10*3/uL Normal <0.46 [facility] Comment on above: Order Comment: Speci men Type: BLOOD SPECIMEN Ordering Facility: [facility] Address: [address] [address] Performed By: #### 5 7021-8 #### [facility] CLIA [id number] [address] Eosinophils/100 WBC (Bld) 2.6 % Normal [facility] Comment on above: Order Comment: Speci men Type: BLOOD SPECIMEN Ordering Facility: [facility] Address: [address] [address] Performed By: #### 5 7021-8 #### [facility] CLIA [id number] [address] Erythrocyte distribution width (RBC) [Ratio] 12.8 % Normal 11.5-15.0 [facility] Comment on above: Order Comment: Speci men Type: BLOOD SPECIMEN Ordering Facility: [facility] Address: [address] [address] Performed By: #### 5 7021-8 #### [facility] CLIA [id number] [address] Hematocrit (Bld) [Volume fraction] 39.8 % Normal 36.0-46.0 [facility] Comment on above: Order Comment: Speci men Type: BLOOD SPECIMEN Ordering Facility: [facility] Address: [address] [address] Performed By: #### 5 7021-8 #### [facility] CLIA [id number] [address] [place] Hemoglobin (Bld) [Mass/Vol] 13.5 g/dL Normal 11.5-15.5 [facility] Comment on above: Order Comment: Speci men Type: BLOOD SPECIMEN Ordering Facility: [facility] Address: [address] [address] Performed By: #### 5 7021-8 #### [facility] CLIA [id number] [address] Immature granulocytes (Bld) [#/Vol] 10*3/uL Normal <0.10 [facility] Comment on above: Order Comment: Speci men Type: BLOOD SPECIMEN Ordering Facility: [facility] Address: [address] [place] [address] Performed By: #### 5 7021-8 #### [facility] CLIA [id number] [address] Immature granulocytes/100 WBC (Bld) 0.3 % Normal [facility] Comment on above: Order Comment: Speci men Type: BLOOD SPECIMEN Ordering Facility: [facility] Address: [address] [place] [address] Performed By: #### 5 7021-8 #### [facility] CLIA [id number] [address] Lymphocytes (Bld) [#/Vol] 1.05 10*3/uL Normal 1.00-4.00 [facility] Comment on above: Order Comment: Speci men Type: BLOOD SPECIMEN Ordering Facility: [facility] Address: [address] [place] [address] Performed By: #### 5 7021-8 #### [facility] CLIA [id number] [address] Lymphocytes/100 WBC (Bld) 15.9 % Normal [facility] Comment on above: Order Comment: Speci men Type: BLOOD SPECIMEN Ordering Facility: [facility] Address: [address] [place] [address] Performed By: #### 5 7021-8 #### [facility] CLIA [id number] [address] [place] MCH (RBC) [Entitic mass] 29.0 pg Normal 26.0-34.0 [facility] Comment on above: Order Comment: Speci men Type: BLOOD SPECIMEN Ordering Facility: [facility] Address: [address] [place] [address] Performed By: #### 5 7021-8 #### [facility] CLIA [id number] [address] MCHC (RBC) [Mass/Vol] 33.9 g/dL Normal 30.5-36.0 [facility] Comment on above: Order Comment: Speci men Type: BLOOD SPECIMEN Ordering Facility: [facility] Address: [address] [place] [address] Performed By: #### 5 7021-8 #### [facility] CLIA [id number] [address] [place] MCV (RBC) [Entitic vol] 85.4 fL Normal 80.0-100.0 [facility] Comment on above: Order Comment: Speci men Type: BLOOD SPECIMEN Ordering Facility: [facility] Address: [address] [place] [address] Performed By: #### 5 7021-8 #### [facility] CLIA [id number] [address] [place] Monocytes (Bld) [#/Vol] 0.50 10*3/uL Normal <0.87 [facility] Comment on above: Order Comment: Speci men Type: BLOOD SPECIMEN Ordering Facility: [facility] Address: [address] [place] [address] Performed By: #### 5 7021-8 #### [facility] CLIA [id number] [address] Monocytes/100 WBC (Bld) 7.6 % Normal [facility] Comment on above: Order Comment: Speci men Type: BLOOD SPECIMEN Ordering Facility: [facility] Address: [address] [address] Performed By: #### 5 7021-8 #### [facility] CLIA [id number] [address] [place] [address] [place] Neutrophils (Bld) [#/Vol] 4.84 10*3/uL Normal 1.45-7.50 [facility] Comment on above: Order Comment: Speci men Type: BLOOD SPECIMEN Ordering Facility: [facility] Address: [address] [address] Performed By: #### 5 7021-8 #### [facility] CLIA [id number] [address] [place] Neutrophils/100 WBC (Bld) 73.4 % Normal [facility] Comment on above: Order Comment: Speci men Type: BLOOD SPECIMEN Ordering Facility: [facility] Address: [address] [address] Performed By: #### 5 7021-8 #### [facility] CLIA [id number] [address] [place] [address] [place] Nucleated RBC (Bld) [#/Vol] 10*3/uL Normal <0.01 [facility] Comment on above: Order Comment: Speci men Type: BLOOD SPECIMEN Ordering Facility: [facility] Address: [address] [address] Performed By: #### 5 7021-8 #### [facility] CLIA [id number] [address] [place] Nucleated RBC/100 WBC (Bld) [Ratio] 0.0 /100 WBC Normal [facility] Comment on above: Order Comment: Speci men Type: BLOOD SPECIMEN Ordering Facility: [facility] Address: [address] [address] Performed By: #### 5 7021-8 #### [facility] CLIA [id number] [address] [place] Platelet mean volume (Bld) [Entitic vol] 9.7 fL Normal 9.0-12.7 [facility] Comment on above: Order Comment: Speci men Type: BLOOD SPECIMEN Ordering Facility: [facility] Address: [address] [address] Performed By: #### 5 7021-8 #### [facility] CLIA [id number] [address] [place] [address] [place] Platelets (Bld) [#/Vol] 229 10*3/uL Normal 150-400 [facility] Comment on above: Order Comment: Speci men Type: BLOOD SPECIMEN Ordering Facility: [facility] Address: [address] [address] Performed By: #### 5 7021-8 #### [facility] CLIA [id number] [address] [place] RBC (Bld) [#/Vol] 4.66 10*6/uL Normal 3.90-5.20 [facility] Comment on above: Order Comment: Speci men Type: BLOOD SPECIMEN Ordering Facility: [facility] Address: [address] [place] [address] Performed By: #### 5 7021-8 #### [facility] CLIA [id number] [address] WBC (Bld) [#/Vol] 6.59 10*3/uL Normal 3.70-11.00 [facility] Comment on above: Order Comment: Speci men Type: BLOOD SPECIMEN Ordering Facility: [facility] Address: [address] [place] [address] Performed By: #### 5 7021-8 #### [facility] CLIA [id number] [address] BRAIN WO IVCONon 04-03-[address] BRAIN WO IVCON * * *Final Report* * * DATE OF EXAM: Apr 03 2022 1:38PM [facility] 0504 - CT BRAIN WO IVCON / PROCEDURE REASON: Encephalitis * * * * Physician Interpretation * * * * EXAMINATION: CT BRAIN WO IVCON HISTORY: Clinical information: Encephalitis BLACKED OUT AND SEIZURE History of seizures, episode where all 4 extremities twitching and doesn't remember the episode TECHNIQUE: Serial axial images without IV contrast were obtained from the vertex to the foramen magnum. MQ: CTBWO_3 CT Radiation dose: Integrated Dose-Length Product (DLP) for this visit = 638 mGy*cm CT Dose Reduction Employed: No dose reduction techniques were required COMPARISON: None. RESULT: Post-operative change: None. Acute change: No evidence of an acute infarct or other acute parenchymal process. Hemorrhage: No evidence of acute intracranial hemorrhage. ECASS hemorrhagic transformation score: Not Applicable Mass Lesion / Mass Effect: There is no evidence of an intracranial mass or extraaxial fluid collection. No significant mass effect. Chronic change: None apparent. Parenchyma: There is no significant volume loss. The brain parenchyma is otherwise within normal limits for age. Ventricles: The ventricles are within normal limits of size and configuration for age. Paranasal sinuses and skull base: The visualized paranasal sinuses are grossly clear. The skull base and imaged soft tissues are unremarkable. Air Carrier Inspector (topogram) images: No additional findings. IMPRESSION: No intracranial hemorrhage or other acute intracranial abnormalities Optical Model Maker And Tester: SHEILA Transcribe Date/Time: Apr 03 2022 1:48P Dictated by : RADHA ZAMORA DO This examination was interpreted and the report reviewed and electronically signed by: RADHA ZAMORA DO on Apr 03 2022 1:51PM EST [id number] Normal [facility] Comprehensive metabolic 2000 panelon 04-03-2022 Albumin [Mass/Vol] 4.1 g/dL Normal 3.9-4.9 [facility] Comment on above: Order Comment: Joelle peterson Type: BLOOD SPECIMEN Ordering Facility: [facility] Address: [address] [place] [address] Performed By: #### 2 4323-8, 69016-7, HSTNT, #### [facility] CLIA [id number] [address] [place] [address] [place] ALP [Catalytic activity/Vol] 56 U/L Normal 34-123 [facility] Comment on above: Order Comment: Joelle peterson Type: BLOOD SPECIMEN Ordering Facility: [facility] Address: [address] [place] [address] Performed By: #### 2 4323-8, 20909-9, HSTNT, 08611-6 #### [facility] CLIA [id number] [address] [place] [address] [place] ALT [Catalytic activity/Vol] U/L Low 7-38 [facility] Comment on above: Order Comment: Joelle peterson Type: BLOOD SPECIMEN Ordering Facility: [facility] Address: [address] [place] [address] Performed By: #### 2 4323-8, 05560-9, HSTNT, 70512-4 #### [facility] CLIA [id number] [address] [place] [address] [place] Anion gap [Moles/Vol] 12 mmol/L Normal 9-18 [facility] Comment on above: Order Comment: Speci men Type: BLOOD SPECIMEN Ordering Facility: [facility] Address: [address] [address] Performed By: #### 2 4323-8, 59655-6, HSTNT, 34356-7 #### [facility] CLIA [id number] [address] [place] [address] [place] AST [Catalytic activity/Vol] 17 U/L Normal 13-35 [facility] Comment on above: Order Comment: Speci men Type: BLOOD SPECIMEN Ordering Facility: [facility] Address: [address] [address] Performed By: #### 2 4323-8, 70873-1, HSTNT, #### [facility] CLIA [id number] [address] [place] [address] [place] Bilirubin [Mass/Vol] 0.7 mg/dL Normal 0.2-1.3 [facility] Comment on above: Order Comment: Speci men Type: BLOOD SPECIMEN Ordering Facility: [facility] Address: [address] [address] Performed By: #### 2 4323-8, 88310-6, HSTNT, #### [facility] CLIA [id number] [address] [place] [address] [place] Calcium [Mass/Vol] 8.6 mg/dL Normal 8.5-10.2 [facility] Comment on above: Order Comment: Speci men Type: BLOOD SPECIMEN Ordering Facility: [facility] Address: [address] [address] Performed By: #### 2 4323-8, 25464-9, HSTNT, 13675-6 #### [facility] CLIA [id number] [address] [place] [address] [place] Chloride [Moles/Vol] 101 mmol/L Normal 97-105 [facility] Comment on above: Order Comment: Speci men Type: BLOOD SPECIMEN Ordering Facility: [facility] Address: [address] [address] Performed By: #### 2 4323-8, 12383-1, HSTNT, #### [facility] CLIA [id number] [address] [place] [address] [place] CO2 [Moles/Vol] 24 mmol/L Normal 22-30 [facility] Comment on above: Order Comment: Speci nicholas Type: BLOOD SPECIMEN Ordering Facility: [facility] Address: [address] [place] [address] Performed By: #### 2 4323-8, 53497-0, HSTNT, #### [facility] CLIA [id number] [address] [place] [address] [place] Creatinine [Mass/Vol] 0.78 mg/dL Normal 0.58-0.96 [facility] Comment on above: Order Comment: Galeni men Type: BLOOD SPECIMEN Ordering Facility: [facility] Address: [address] [place] [address] Performed By: #### 2 4323-8, 51193-7, HSTNT, #### [facility] CLIA [id number] [address] STATES OF [facility] ESTIMATED GLOMERULAR FILTRATION RATE 93 mL/min/1.73m??? Normal >=60 [facility] Comment on above: Order Comment: Joelle peterson Type: BLOOD SPECIMEN Ordering Facility: [facility] Address: [address] [place] [address] Result Comment: Linh mated Glomerular Filtration Rate (eGFR) is calculated using the 2020 CKD-EPI creatinine equation. This equation utilizes serum creatinine, sex, and age as parameters. The creatinine assay has traceable calibration to isotope dilution-mass spectrometry. Refer to KDIGO guidelines for clinical interpretation. In patients with unstable renal function, e.g. those with acute kidney injury, the eGFR may not accurately reflect actual GFR. Performed By: #### 2 4323-8, 45641-0, HSTNT, #### [facility] CLIA [id number] [address] [place] [address] [place] Glucose [Mass/Vol] 121 mg/dL High 74-99 [facility] Comment on above: Order Comment: Galeni men Type: BLOOD SPECIMEN Ordering Facility: [facility] Address: [address] [place], [place] [id number] Result Comment: The [place] Diabetes Association (ADA) provides guidance for cutoff values for fasting glucose and random glucose. The ADA defines fasting as no caloric intake for at least 8 hours. Fasting plasma glucose results between 100 to 125 mg/dL indicate increased risk for diabetes (prediabetes). Fasting plasma glucose results greater than or equal to 126 mg/dL meet the criteria for diagnosis of diabetes. In the absence of unequivocal hyperglycemia, results should be confirmed by repeat testing. In a patient with classic symptoms of hyperglycemia or hyperglycemic crisis, random plasma glucose results greater than or equal to 200 mg/dL meet the criteria for diagnosis of diabetes. Reference: Standards of Medical Care in Diabetes 2016, [place] [employer] Association. Diabetes Care. 2016.39(Suppl 1). Performed By: #### 2 4323-8, 41955-9, HSTNT, #### [facility] CLIA [id number] [address] [place] [address] [place] Potassium [Moles/Vol] 3.7 mmol/L Normal 3.7-5.1 [facility] Comment on above: Order Comment: Speci men Type: BLOOD SPECIMEN Ordering Facility: [facility] Address: [address] [place] [address] Performed By: #### 2 4323-8, 58584-0, HSTNT, #### [facility] CLIA [id number] [address] [place] [address] [place] Protein [Mass/Vol] 6.7 g/dL Normal 6.3-8.0 [facility] Comment on above: Order Comment: Speci men Type: BLOOD SPECIMEN Ordering Facility: [facility] Address: [address] [place], [place] [id number] Performed By: #### 2 4323-8, 47896-3, HSTNT, 15672-2 #### [facility] CLIA [id number] [address] [place] [address] [place] Sodium [Moles/Vol] 137 mmol/L Normal 136-144 [facility] Comment on above: Order Comment: Speci men Type: BLOOD SPECIMEN Ordering Facility: [facility] Address: [address] [place] [address] [place] [address] Performed By: #### 2 4323-8, 50194-1, HSTNT, 49701-7 #### [facility] CLIA [id number] [address] [id number] [facility] Urea nitrogen [Mass/Vol] 12 mg/dL Normal 7- [facility] Comment on above: Order Comment: Speci men Type: BLOOD SPECIMEN Ordering Facility: [facility] Address: [place] [address] Performed By: #### 2 4323-8, 91481-4, HSTNT, #### [facility] CLIA [id number] [address] ECG COMPLETEon 04-03-2022 ECG COMPLETE Ventricular Rate : 8 9 BPM Atrial Rate : 89 BPM P-R Interval : 174 ms QRS Duration : 86 ms Q-T Interval : 398 ms QTC Calculation(Bazett) : 484 ms Calculated P Lorman : 35 degrees Calculated R Lorman : -3 degrees Calculated T Lorman : -5 degrees NORMAL SINUS RHYTHM LOW VOLTAGE QRS PROLONGED QT ABNORMAL ECG no stemi Confirmed by MD ALMANZAR EDWARD.S ([id number]), manager editorial JULITA HINOJOSA (1940) on 04/04/2022 7:07:25 AM NAME : MIKHAIL CHUNG PID : [id number] : 1970 Gender : Female Race : ORD : [id number] Procedure Date : Apr 03 2022 13:47:33 Edit Date : Apr 04 2022 07:07:27 Diagnosis: NORMAL SINUS RHYTHM LOW VOLTAGE QRS PROLONGED QT ABNORMAL ECG no stemi Confirmed by MD ALMANZAR EDWARD.S ([id number]), manager editorial JULITA HINOJOSA (1940) on 04/04/2022 7:07:25 AM Test Reason : Chest Pain Location : 1 : ER ED Overread By : MD ALMANZAR EDWARD.S Edited By : JULITA HINOJOSA Referred By : , Acquired by : [facility] ED NOTEon 04-03-2022 ED NOTE HNO ID: [id number] Author: Catina Gaming RN Service: Nursing Author Type: Registered Nurse Type: ED Notes Filed: 04/03/2022 1:06 PM Note Text: Patient brought to ED by EMS s/p seizure. Patient was witnessed laying on the ground shaking, having what looked like a seizure [facility] ED NOTE HNO ID: [id number] Author: Dustin Talley RN Service: ? Author Type: Registered Nurse Type: ED Notes Filed: 04/03/2022 1:01 PM Note Text: Bed: ED-06 Expected date: Expected time: Means of arrival: [place] [facility] Comments: Medic 5 [facility] ED PROV NOTEon 04-03-2022 ED PROV NOTE HNO ID: [id number] Author: Lion Almanzar MD Service: Emergency Medicine Author Type: Physician Type: ED Provider Notes Filed: 04/03/2022 3:17 PM Note Text: ED Provider Note Patient Name: Mikhail Chung : 1970 SERVICE DATE: 04/03/22 History Patient presents with: Seizures HPI Ms. Chung is a 51-year-old female with distant history of seizure, not presently on any medication for them, was in a store and had an episode where she does not remember much but she had twitching of all 4 extremities per bystanders report to EMS. On arrival, nothing really is bothering her. She denies any unilateral weakness or numbness or trouble speaking or swallowing or significant headache or neck pain or back pain or other injury. She has not been sick. 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 questions. PAST SURGICAL HISTORY Procedure Laterality Date DELIVERY ONLY 10/30/2003 , low cervical DELIVERY ONLY 2010 , low transverse CHOLECYSTECTOMY 2001 LIG/TRNSXJ FLP TUBE ABDL/VAG APPR UNI/BI 2010 Tubal ligation PAST SURGICAL HISTORY OF WISDOM TEETH EXTRACTION TONSILLECTOMY PRIMARY/SECONDARY FAMILY HISTORY Problem Relation Age of Onset Diabetes Mother Diet Controled Heart Paternal Grandfather Allergies Daughter Tree Nuts Social History Tobacco Use Smoking status: Never Smokeless tobacco: Never Substance and Sexual Activity Alcohol use: No Drug use: No Sexual activity: Not Currently Partners: Male control/protection: Tubal Ligation ALLERGIES Allergen Reactions Ambien [Zolpidem] Other: See Comments Sleep walking and eating in middle of the night Compazine [Prochlor* Mental Status Change Medrol [Methylpredn* Other: See Comments Possible rash/dermatitis Ultram [Tramadol Hc* Vomiting Zithromax [Azithrom* Diarrhea Review of Systems Constitutional: Negative for chills and fever. HENT: Negative for ear pain, rhinorrhea and sore throat. Respiratory: Negative for cough and shortness of breath. Cardiovascular: Negative for chest pain and leg swelling. Gastrointestinal: Negative for abdominal pain, diarrhea, nausea and vomiting. Genitourinary: Negative for dysuria, flank pain, frequency and hematuria. Musculoskeletal: Negative for back pain. Skin: Negative for rash. Neurological: Positive for seizures and syncope. Negative for speech difficulty, weakness, light-headedness, numbness and headaches. Psychiatric/Behavioral: Negative for hallucinations and suicidal ideas. Physical Exam Vitals [04/03/22 1306] BP Pulse Temp Temp src Resp SpO2 Weight Height 114/67 (!) 97 36.7 ?C (98 ?F) Oral 16 100 % 80.6 kg (177 lb 11.1 oz) -- Physical Exam Vitals and nursing note reviewed. Constitutional: General: She is not in acute distress. Appearance: She is well-developed. HENT: Head: Normocephalic and atraumatic. Eyes: Pupils: Pupils are equal, round, and reactive to light. Neck: Trachea: No tracheal deviation. Cardiovascular: Rate and Rhythm: Normal rate. Heart sounds: No murmur heard. No friction rub. No gallop. Pulmonary: Effort: Pulmonary effort is normal. No respiratory distress. Breath sounds: Normal breath sounds. No wheezing or rales. Abdominal: General: Bowel sounds are normal. There is no distension. Palpations: Abdomen is soft. Tenderness: There is no abdominal tenderness. There is no guarding or rebound. Musculoskeletal: General: Normal range of motion. Cervical back: Normal range of motion and neck supple. Lymphadenopathy: Cervical: No cervical adenopathy. Skin: General: Skin is warm and dry. Findings: No erythema. Neurological: Mental Status: She is alert and oriented to person, place, and time. Cranial Nerves: No cranial nerve deficit. Motor: No abnormal muscle tone. Comments: AANDOx4, CN intact, no unilateral weakness/numbness, no aphasia/dysarthria, gait intact Psychiatric: Behavior: Behavior normal. Thought Content: Thought content normal. Judgment: Judgment normal. Diagnostic Testing ED Labs Ordered and Reviewed - No data to display Procedures ED Course / Clinical Impression ED Course as of 04/03/22 1516 Lion Almanzar's Documentation WedApr 03, 2022 1359 ECG NSR @ 89 bpm no STEMI QTc 484 ms per machine read - not obviously long manually. Clinical Impressions as of 04/03/22 1516 Syncope and collapse - possible long QT interval - need to see mortgage broker Seizure (HCC) - possible - no driving until you see neurologist COVID-19 test performed per [facility] [place] policy for suspected COVID community exposure. MDM / Disposition / Plan MDM Course: Vital signs were reviewed. Triage records were reviewed. Medical records were reviewed. Nursing notes were reviewed and incorporated. The following medications were administered: (more content not included)... Normal [facility] Ethanol SerPl-ncon 022 Ethanol [Mass/Vol] mg/dL Normal <11 [facility] Comment on above: Order Comment: Joelle peterson Type: BLOOD SPECIMEN Ordering Facility: [facility] Address: [address] [address] Performed By: #### 5 643-2 #### [facility] CLIA [id number] [address] [place] FENTANYL SCREEN, QUALITATIVE , URINEon 04-03-2022 fentaNYL Screen Ql (U) Negative Normal Negative [facility] Comment on above: Order Comment: Joelle peterson Type: URINE SPECIMEN Ordering Facility: [facility] Address: [address] [address] Result Comment: Cuto ff threshold at 5 ng/mL. Performed By: #### U FENTS #### [facility] CLIA [id number] [address] [place] HIGH SENSITIVITY TROPONIN To n 04-03-2022 HIGH SENSITIVITY SULEMAN 10 ng/L Normal <12 [facility] Comment on above: Order Comment: Joelle peterson Type: BLOOD SPECIMEN Ordering Facility: [facility] Address: [address] [address] Result Comment: When assessing risk for acute coronary syndromes: In patients undergoing blood draw greater than or equal to 2 hours from symptom onset, with history of very low to moderate risk and non-ischemic ECG, an initial hs-Troponin T less than 12 ng/L AND a 1 hour delta hs-Troponin T less than 3 ng/L should be considered very low risk for 30 day MACE. Performed By: #### 2 4323-8, 76968-7, HSTNT, 09374-9 #### [facility] CLIA [id number] [address] Magnesium SerPl-mCncon 04-03 Magnesium [Mass/Vol] 2.2 mg/dL Normal 1.7-2.3 [facility] Comment on above: Order Comment: Joelle peterson Type: BLOOD SPECIMEN Ordering Facility: [facility] Address: [address] [place] [address] Performed By: #### 2 4323-8, 41812-8, HSTNT, 91665-5 #### [facility] CLIA [id number] [address] [facility] Natriuretic peptide.B prohormone N-Terminal [Mass/Vol] 64 pg/mL Normal <125 [facility] Comment on above: Order Comment: Joelle peterson Type: BLOOD SPECIMEN Ordering Facility: [facility] Address: [address] [place] [address] Performed By: #### 2 4323-8, 51473-4, HSTNT, 62454-5 #### [facility] CLIA [id number] [address] [place] [address] PT panel Coag (PPP)on 2021 INR Coag (PPP) [Relative time] 1.1 {INR} Normal 0.9-1.3 [facility] Comment on above: Order Comment: Joelle peterson Type: BLOOD SPECIMEN Ordering Facility: [facility] Address: [address] [place] [address] Result Comment: Kelsi min K Antagonist (VKA) Therapeutic Range: INR 2 to 3 (Target INR of 2.5) Note: For patients treated with VKA drugs, such as warfarin, the [place] [employer] 2012 Guideline recommends a therapeutic INR range of 2 to 3 (target INR of 2.5). This recommendation includes high-risk patients with antiphospholipid syndrome with previous arterial or venous thromboembolism, current-generation mechanical or bioprosthetic aortic heart valve replacement. Note: Patients with mechanical aortic valve replacement and additional risk factors for thromboembolic events (atrial fibrillation, previous thromboembolism, LV dysfunction, hypercoagulable conditions) or an older generation mechanical AVR (i.e., ball in-Cage) or any mechanical MVR should have a INR therapeutic range of 2.5 to 3.5 (target INR of 3). Carmencita GH, et al. Chest 2012, 141:7S-47S Drew RA, et al. JAC 2017, 70: 252-289 Performed By: #### 3 4528-0, 06378-2 #### [facility] CLIA [id number] [address] [place] [address] [place] PT Coag (PPP) [Time] 11.1 s Normal 9.7-13.0 [facility] Comment on above: Order Comment: Speci men Type: BLOOD SPECIMEN Ordering Facility: [facility] Address: [address] [place], [place] [id number] Performed By: #### 3 4528-0, 67297-6 #### [facility] CLIA [id number] [address] [place] [address] [place] SARS-CoV-2 RNA Resp Ql MONICA+p robeon 04-03-2022 SARS-CoV-2 (COVID-19) RNA MONICA+probe Ql (Resp) COVID 19 RESULT: SARS-CoV-2 (Agent of COVID-19) Not Detected by RT-PCR or equivalent method. This test has been authorized by FDA under an Emergency Use Authorization (EUA). Normal [facility] Comment on above: Performed By: #### 5 643-2 #### [facility] CLIA [id number] [address] [place] [address] [place] TOX SCREEN ROUT URon 022 Amphetamines Confirm (U) [Mass/Vol] Negative Normal Negative [facility] Comment on above: Order Comment: Speci men Type: BLOOD SPECIMEN Ordering Facility: [facility] Address: [address] [address] Result Comment: Cuto ff threshold at 1000 ng/mL. Performed By: #### 5 643-2 #### [facility] CLIA [id number] [address] BARBITURATES, URINE Negative Normal Negative [facility] Comment on above: Order Comment: Speci men Type: BLOOD SPECIMEN Ordering Facility: [facility] Address: [address] [address] Result Comment: Cuto ff threshold at 200 ng/mL. Performed By: #### 5 643-2 #### [facility] CLIA [id number] [address] [place] BENZODIAZEPINES, UR Negative Normal Negative [facility] Comment on above: Order Comment: Speci men Type: BLOOD SPECIMEN Ordering Facility: [facility] Address: [address] [place] [address] Result Comment: Cuto ff threshold at 200 ng/mL. Performed By: #### 5 643-2 #### [facility] CLIA [id number] [address] [place] CANNABINOIDS,URINE Negative Normal Negative [facility] Comment on above: Order Comment: Speci men Type: BLOOD SPECIMEN Ordering Facility: [facility] Address: [address] [place] [address] Result Comment: Cuto ff threshold at 50 ng/mL. Performed By: #### 5 643-2 #### [facility] CLIA [id number] [address] [place] Cocaine Ql (U) Negative Normal Negative [facility] Comment on above: Order Comment: Speci men Type: BLOOD SPECIMEN Ordering Facility: [facility] Address: [address] [address] Result Comment: Cuto ff threshold at 300 ng/mL. Performed By: #### 5 643-2 #### [facility] CLIA [id number] [address] [place] Ethanol (U) [Mass/Vol] <11 Normal <11 [facility] Comment on above: Order Comment: Speci men Type: BLOOD SPECIMEN Ordering Facility: [facility] Address: [address] [place] [address] Performed By: #### 5 643-2 #### [facility] CLIA [id number] [address] Opiates Screen Ql (U) Negative Normal Negative [facility] Comment on above: Order Comment: Speci men Type: BLOOD SPECIMEN Ordering Facility: [facility] Address: [address] [place] [address] Result Comment: Cuto ff threshold at 300 ng/mL. Performed By: #### 5 643-2 #### [facility] CLIA [id number] [address] oxyCODONE cutoff Screen (U) [Mass/Vol] Negative Normal Negative [facility] Comment on above: Order Comment: Speci men Type: BLOOD SPECIMEN Ordering Facility: [facility] Address: [address] [place] [address] Result Comment: Cuto ff threshold at 100 ng/mL. Performed By: #### 5 643-2 #### [facility] CLIA [id number] [address] Phencyclidine Ql (U) Negative Normal Negative [facility] Comment on above: Order Comment: Speci men Type: BLOOD SPECIMEN Ordering Facility: [facility] Address: [address] [place] [address] Result Comment: Cuto ff threshold at 25 ng/mL. Performed By: #### 5 643-2 #### [facility] CLIA [id number] [address] Urinalysis complete panel (U )on 04-03-2022 Bacteria LM.HPF (Urine sed) [#/Area] Few Abnormal None Seen [facility] Comment on above: Order Comment: Speci men Type: BLOOD SPECIMEN Ordering Facility: [facility] Address: [address] [place] [address] Performed By: #### 5 643-2 #### [facility] CLIA [id number] [address] [place] Bilirubin Ql (U) Negative Normal Negative [facility] Comment on above: Order Comment: Speci men Type: BLOOD SPECIMEN Ordering Facility: [facility] Address: [address] [place] [address] Performed By: #### 5 643-2 #### [facility] CLIA [id number] [address] Clarity (Unsp spec) Cloudy Abnormal Clear [facility] Comment on above: Order Comment: Speci men Type: BLOOD SPECIMEN Ordering Facility: [facility] Address: [address] [place] [address] Performed By: #### 5 643-2 #### [facility] CLIA [id number] [address] Color (U) Yellow Normal Yellow [facility] Comment on above: Order Comment: Speci men Type: BLOOD SPECIMEN Ordering Facility: [facility] Address: [address] [place] [address] Performed By: #### 5 643-2 #### [facility] CLIA [id number] [address] Epithelial cells LM.HPF (Urine sed) [#/Area] Few Normal [facility] Comment on above: Order Comment: Speci men Type: BLOOD SPECIMEN Ordering Facility: [facility] Address: [address] [place] [address] Performed By: #### 5 643-2 #### [facility] CLIA [id number] [address] Glucose Test strip (U) [Mass/Vol] Negative Normal Negative [facility] Comment on above: Order Comment: Speci men Type: BLOOD SPECIMEN Ordering Facility: [facility] Address: [address] [place] [address] Performed By: #### 5 643-2 #### [facility] CLIA [id number] [address] [place] Granular casts (Urine sed) [#/Area] /[LPF] Abnormal 0 /LPF [facility] Comment on above: Order Comment: Speci men Type: BLOOD SPECIMEN Ordering Facility: [facility] Address: [address] [address] Performed By: #### 5 643-2 #### [facility] CLIA [id number] [address] Hemoglobin Ql (U) 3+ Abnormal Negative [facility] Comment on above: Order Comment: Speci men Type: BLOOD SPECIMEN Ordering Facility: [facility] Address: [address] [address] Performed By: #### 5 643-2 #### [facility] CLIA [id number] [address] Hyaline casts (Urine sed) [#/Area] 4-10 /LPF Abnormal 0 /LPF [facility] Comment on above: Order Comment: Speci men Type: BLOOD SPECIMEN Ordering Facility: [facility] Address: [address] [place] [address] Performed By: #### 5 643-2 #### [facility] CLIA [id number] [address] Ketones Ql (U) Negative Normal Negative [facility] Comment on above: Order Comment: Speci men Type: BLOOD SPECIMEN Ordering Facility: [facility] Address: [address] [place] [address] Performed By: #### 5 643-2 #### [facility] CLIA [id number] [address] Leukocyte esterase Test strip Ql (U) Negative Normal Negative [facility] Comment on above: Order Comment: Speci men Type: BLOOD SPECIMEN Ordering Facility: [facility] Address: [address] [address] Performed By: #### 5 643-2 #### [facility] CLIA [id number] [address] Nitrite Ql (U) Negative Normal Negative [facility] Comment on above: Order Comment: Speci men Type: BLOOD SPECIMEN Ordering Facility: [facility] Address: [address] [place] [address] Performed By: #### 5 643-2 #### [facility] CLIA [id number] [address] [place] pH (U) 5.5 [pH] Normal 5.0-8.0 [facility] Comment on above: Order Comment: Speci men Type: BLOOD SPECIMEN Ordering Facility: [facility] Address: [address] [place] [address] Performed By: #### 5 643-2 #### [facility] CLIA [id number] [address] [place] Protein (U) [Mass/Vol] Normal [facility] Comment on above: Order Comment: Speci men Type: BLOOD SPECIMEN Ordering Facility: [facility] Address: [address] [place] [address] Result Comment: Visi ble blood causes falsely elevated results for analyte Protein. Due to this limitation, Protein will not be reported for patients whose urine contains visible blood. Performed By: #### 5 643-2 #### [facility] CLIA [id number] [address] STATES [facility] RBC LM.HPF (Urine sed) [#/Area] 0-3 /HPF Normal 0-3 /HPF [facility] Comment on above: Order Comment: Speci men Type: BLOOD SPECIMEN Ordering Facility: [facility] Address: [address] [place] [address] Performed By: #### 5 643-2 #### [facility] CLIA [id number] [address] [place] Specific gravity (U) [Rel density] >=1.030 High 1.005-1.030 [facility] Comment on above: Order Comment: Speci men Type: BLOOD SPECIMEN Ordering Facility: [facility] Address: [address] [place] [address] Performed By: #### 5 643-2 #### [facility] CLIA [id number] [address] [place] Urobilinogen Ql (U) 0.2 EU/dL Normal 0.2-1.0 EU/dL [facility] Comment on above: Order Comment: Speci men Type: BLOOD SPECIMEN Ordering Facility: [facility] Address: [address] [address] Performed By: #### 5 643-2 #### [facility] CLIA [id number] [address] WBC LM.HPF (Urine sed) [#/Area] 0-5 /HPF Normal 0-5 /HPF [facility] Comment on above: Order Comment: Speci men Type: BLOOD SPECIMEN Ordering Facility: [facility] Address: [address] [address] Performed By: #### 5 643-2 #### [facility] CLIA [id number] [address] [place] XR CHEST 1V FRONTAL PORTon 1 06-03-2021 XR CHEST 1V FRONTAL PORT * * *Final Report* * * DATE OF EXAM: Apr 03 2022 1:20PM MDX [id number] - XR CHEST 1V FRONTAL PORT / PROCEDURE REASON: Fatigue and malaise * * * * Physician Interpretation * * * * EXAMINATION: CHEST RADIOGRAPH (PORTABLE SINGLE VIEW AP) Exam Date/Time: 04/03/2022 1:20 PM CLINICAL HISTORY: Fatigue and malaise MQ: XCPR_5 Comparison: None RESULT: Lines, tubes, and devices: None. Lungs and pleura: No edema, infiltrates, pulmonary nodules or pleural effusions. No pneumothorax. Cardiomediastinal silhouette: Within normal limits Other: . IMPRESSION: No active disease Optical Model Maker And Tester: PSCB Transcribe Date/Time: Apr 03 2022 1:29P Dictated by : NEHA FARFAN MD This examination was interpreted and the report reviewed and electronically signed by: NEHA FARFAN MD on Apr 03 2022 1:30PM EST [id number] Normal [facility] aPTT PPPon 04-03-2022 aPTT Coag (PPP) [Time] 24.3 s Normal 23.0-32.4 [facility] Comment on above: Order Comment: Speci men Type: BLOOD SPECIMEN Ordering Facility: [facility] Address: [address] [place] [address] Performed By: #### 3 4528-0, 47033-5 #### [facility] IA [id number] [address] Vital Signs Date Time Vital Sign Value Performing Clinician Nehemias galvez 01-12-2025 08:43-0400 Body mass index (BMI) [Ratio] 25.01 kg/m2 Agustina Kay MD Work Phone: [facility] 01-12-2025 08:43-0400 Body weight 74.6 kg Agustina Kay MD Work Phone: [facility] 01-12-2025 08:43-0400 Diastolic blood pressure 72 mm[Hg] Agustina Kay MD Work Phone: [facility] 01-12-2025 08:43-0400 Heart rate 80 /min Agustina Kay MD Work Phone: [facility] 01-12-2025 08:43-0400 Respiratory rate 16 /min Agustina Kay MD Work Phone: [facility] 01-12-2025 08:43-0400 SaO2% (BldA) [Mass fraction] 99 % Agustina Kay MD Work Phone: [facility] 01-12-2025 08:43-0400 Systolic blood pressure 108 mm[Hg] Agustina Kay MD Work Phone: [facility] 07-19-2024 08:44-0400 Body height 172.7 cm Agustina Kay MD Work Phone: [facility] 07-19-2024 08:44-0400 Body mass index (BMI) [Ratio] 24.93 kg/m2 Agustina Kay MD Work Phone: [facility] 07-19-2024 08:44-0400 Body weight 74.38 kg Agustina Kay MD Work Phone: [facility] 07-19-2024 08:44-0400 Diastolic blood pressure 71 mm[Hg] Agustina Kay MD Work Phone: [facility] 07-19-2024 08:44-0400 Heart rate 80 /min Agustina Kay MD Work Phone: [facility] 07-19-2024 08:44-0400 Respiratory rate 16 /min Agustina Kay MD Work Phone: [facility] 07-19-2024 08:44-0400 Systolic blood pressure 111 mm[Hg] Agustina Kay MD Work Phone: [facility] 01-27-2024 08:50-0400 Body height 170.2 cm Ermias Bettencourt MD Work Phone: [facility] 01-27-2024 08:50-0400 Body mass index (BMI) [Ratio] 26.28 kg/m2 Ermias Bettencourt MD Work Phone: [facility] 01-27-2024 08:50-0400 Body weight 76.11 kg Ermias Bettencourt MD Work Phone: [facility] 01-27-2024 08:50-0400 Diastolic blood pressure 72 mm[Hg] Ermias Bettencourt MD Work Phone: [facility] 01-27-2024 08:50-0400 Systolic blood pressure 102 mm[Hg] Ermias Bettencourt MD Work Phone: [facility] 01-03-2024 08:50-0400 Body mass index (BMI) [Ratio] 24.91 kg/m2 Agustina Kay MD Work Phone: [facility] 01-03-2024 08:50-0400 Body temperature 97.5 [degF] Agustina Kay MD Work Phone: [facility] 01-03-2024 08:50-0400 Body weight 76.5 kg Agustina Kay MD Work Phone: [facility] 01-03-2024 08:50-0400 Diastolic blood pressure 68 mm[Hg] Agustina Kay MD Work Phone: [facility] 01-03-2024 08:50-0400 Heart rate 73 /min Agustina Kay MD Work Phone: [facility] 01-03-2024 08:50-0400 Respiratory rate 18 /min Agustina Kay MD Work Phone: [facility] 01-03-2024 08:50-0400 SaO2% (BldA) [Mass fraction] 98 % Agustina Kay MD Work Phone: [facility] 01-03-2024 08:50-0400 Systolic blood pressure 118 mm[Hg] Agustina Kay MD Work Phone: [facility] 07-01-2022 08:36-0500 Body weight 79.83 kg Agustina Kay MD Work Phone: [facility] 07-01-2022 08:36-0500 Diastolic blood pressure 84 mm[Hg] Agustina Kay MD Work Phone: [facility] 07-01-2022 08:36-0500 Heart rate 80 /min Agustina Kay MD Work Phone: [facility] 07-01-2022 08:36-0500 Respiratory rate 12 /min Agustina Kay MD Work Phone: [facility] 07-01-2022 08:36-0500 Systolic blood pressure 118 mm[Hg] Agustina Kay MD Work Phone: [facility] 04-14-2022 12:57-0500 Body height 175.3 cm John Washington DO Work Phone: [facility] 04-14-2022 12:57-0500 Body weight 78.47 kg John Gilbert DO Work Phone: [facility] 04-14-2022 12:57-0500 Diastolic blood pressure 76 mm[Hg] John Gilbert DO Work Phone: [facility] 04-14-2022 12:57-0500 Heart rate 78 /min John Washington DO Work Phone: [facility] 04-14-2022 12:57-0500 SaO2% (BldA) [Mass fraction] 97 % John Washington DO Work Phone: [facility] 04-14-2022 12:57-0500 Systolic blood pressure 122 mm[Hg] John Washington DO Work Phone: [facility] 04-10-2022 10:13-0500 Diastolic blood pressure 68 mm[Hg] Jozef Kristen PRODUCT ACCOUNTANT.FUR DYER Work Phone: [facility] 04-10-2022 10:13-0500 Heart rate 95 /min Jozef Kristen PRODUCT ACCOUNTANT.[employer]UR DYER Work Phone: [facility] 04-10-2022 10:13-0500 SaO2% (BldA) [Mass fraction] 100 % Jozef Kristen PRODUCT ACCOUNTANT.[employer]UR DYER Work Phone: [facility] 04-10-2022 10:13-0500 Systolic blood pressure 116 mm[Hg] Jozef Kristen PRODUCT ACCOUNTANT.[employer]UR DYER Work Phone: [facility] 04-10-2022 09:39-0500 Body weight 77.7 kg Jozef Kristen PRODUCT ACCOUNTANT.[employer] D[employer]ER Work Phone: [facility] 04-06-2022 10:09-0500 Body weight 77.56 kg Renuka Cotos PRODUCT ACCOUNTANT.TRUCK ENGINE ASSEMBLER Work Phone: [facility] 04-06-2022 10:09-0500 Diastolic blood pressure 72 mm[Hg] Renuka Morgan PRODUCT ACCOUNTANT.TRUCK ENGINE ASSEMBLER Work Phone: [facility] 04-06-2022 10:09-0500 Heart rate 72 /min Renuka Morgan PRODUCT ACCOUNTANT.TRUCK ENGINE ASSEMBLER Work Phone: [facility] 04-06-2022 10:09-0500 Respiratory rate 16 /min Renuka Morgan PRODUCT ACCOUNTANT.TRUCK ENGINE ASSEMBLER Work Phone: [facility] 04-06-2022 10:09-0500 Systolic blood pressure 116 mm[Hg] Renuka Morgan PRODUCT ACCOUNTANT.TRUCK ENGINE ASSEMBLER Work Phone: [facility] 02-24-2022 09:35-0400 Body height 174 cm Patricia Connollycalf PRODUCT ACCOUNTANT.[employer]UR D[employer]ER Work Phone: [facility] 02-24-2022 09:35-0400 Body weight 79.38 kg Patricia Swati PRODUCT ACCOUNTANT.FUR DYER Work Phone: [facility] 02-24-2022 09:35-0400 Diastolic blood pressure 78 mm[Hg] Patricia [place] PRODUCT ACCOUNTANT.FUR DYER Work Phone: [facility] 02-24-2022 09:35-0400 Systolic blood pressure 118 mm[Hg] Patricia Swati PRODUCT ACCOUNTANT.FUR DYER Work Phone: [facility] Encounters Encounter Date Encounter Type Care Provider Facility Start: 03-09-2025 ambulatory Agustina Kay Facilit y:[facility] Start: 03-07-2025 Encounter for other preprocedural examination [facility] Start: 03-06-2025 End: 03-06-2025 ambulatory [facility] Facility:[facility] Start: 03-05-2025 End: 03-05-2025 ambulatory ERMIAS [facility] Facility:[facility] Start: 02-01-2025 End: 02-01-2025 ambulatory AGUSTINA KAY Facility:[facility] Start: 01-30-2025 End: 01-30-2025 ambulatory [facility] Facility:[facility] Start: 01-29-2025 End: 01-29-2025 ambulatory [facility] Facility:[facility] Start: 01-29-2025 Encounter for gynecological examination (general) (routine) without abnormal findings ERMIAS [facility] Start: 01-12-2025 End: 01-12-2025 Office outpatient visit 25 minutes Agustina Kay MD Work Phone: [facility] [place] Comment on above: Anxiety and depressi on (Primary Dx); Motion sickness, sequela; Encounter for immunization Start: 01-12-2025 End: 01-12-2025 ambulatory AGUSTINA KAY Facility:[facility] Start: 07-19-2024 End: 07-19-2024 ambulatory AGUSTINA KAY Facility:[facility] Start: 07-19-2024 End: 07-19-2024 Patient encounter status Agustina Kay MD Work Phone: [facility] Start: 07-19-2024 End: 07-19-2024 Periodic preventive med est patient 40-64yrs Agustina Kay MD Work Phone: [facility] Comment on above: Routine medical exam (Primary Dx); Anxiety and depression; Screening for colon cancer; Encounter for long-term current use of medication; Low HDL (under 40) Start: 05-17-2024 End: 05-18-2024 Refill Agustina Kay MD Work Phone: [facility] [place] Comment on above: Refill Request Start: 04-02-2024 End: 04-03-2024 Refill Agustina Kay MD Work Phone: [facility] [place] Comment on above: Refill Request Start: 03-01-2024 End: 03-01-2024 ambulatory Immunization Clinic Nurse Ba Work Phone: Family [facility] Start: 03-01-2024 End: 03-01-2024 Patient encounter procedure Immunization Clinic Nurse Ba Work Phone: [facility] Start: 01-31-2024 End: 02-01-2024 Documentation procedure Mammography Coordinator [facility] Department Start: 01-31-2024 End: 02-01-2024 Letter encounter Mammography Coordinator [facility] Department Start: 01-27-2024 End: 01-27-2024 Patient encounter procedure Ermias Bettencourt MD Work Phone: OB/Gynecology Comment on above: Encounter for gyneco logical examination (general) (routine) without abnormal findings (Primary Dx); Encounter for screening mammogram for breast cancer Start: 01-27-2024 End: 01-27-2024 Patient encounter status Ermias Bettencourt MD Work Phone: [facility] Start: 01-27-2024 End: 01-27-2024 Subsequent hospital visit by physician Screen Mammo [facility] Mammogram Comment on above: Encounter for screen ing mammogram for breast cancer [Z12.31] Start: 01-03-2024 End: 01-03-2024 Office outpatient visit 15 minutes Agustina Kay MD Work Phone: [facility] [place] Comment on above: Anxiety and depressi on (Primary Dx); Spasm of back muscles; Dense breasts; Encounter for screening mammogram for breast cancer Start: 10-21-2023 Refill Agustina ochoa MD Work Phone: [facility] Comment on above: Refill Request Start: 07-14-2023 End: 07-14-2023 Patient encounter status Agustina Kay MD Work Phone: [facility] Work Phone: Start: 07-14-2023 End: 07-14-2023 Periodic preventive med est patient 40-64yrs Agustina Kay MD Work Phone: [facility] [place] Comment on above: Routine medical exam (Primary Dx); Anxiety and depression; Special screening for malignant neoplasms, colon Start: 01-13-2023 End: 01-13-2023 Subsequent hospital visit by physician [facility] Mamm[facility] Start: 11-13-2022 [facility] (Vis it Summary) [facility] Provider External-Non[facility] Comment on above: Effects of abnormal gravitation forces, initial encounter Start: 11-13-2022 External Contact [facility] Provider EXTERNAL-NON [facility] Start: 10-01-2022 Refill Mayra Robles PRN.CNP Work Phone: [facility] [place] Comment on above: Refill Request Start: 08-21-2022 Telephone encounter Patricia jin APRN.FUR DYER Work Phone: OB/Gynecology Comment on above: Patient Question Start: 07-01-2022 End: 07-01-2022 Office outpatient visit 25 minutes Agustina Kay MD Work Phone: [facility] [place] Comment on above: Anxiety and depressi on (Primary Dx); Prolonged Q-T interval on ECG; Lipid screening; Rotator cuff syndrome of left shoulder; Encounter for immunization; Special screening for malignant neoplasms, colon; Encounter for long-term current use of medication Start: 06-10-2022 End: 06-10-2022 Subsequent hospital visit by physician Diagnostic Mammo [facility] Mammogram Comment on above: Abnormal mammogram [ R92.8] Start: 06-07-2022 Refill Agustina ochoa MD Work Phone: [facility] [place] Comment on above: Refill Request Start: 04-15-2022 Telephone encounter Alena patel MD Work Phone: Mammography Comment on above: Mammogram Result Al l Back Start: 04-14-2022 Documentation procedure Mammog arden Coordinator [facility] Start: 04-14-2022 Letter encounter Mammography Coordinator [facility] Department Start: 04-14-2022 Telephone encounter Patricia jin PRODUCT ACCOUNTANT.FUR DYER Work Phone: OB/Gynecology Comment on above: Orders Start: 04-14-2022 End: 04-14-2022 Patient encounter procedure John Washington DO Work Phone: Cardiology Comment on above: Vasovagal syncope (P rimary Dx); Abnormal electrocardiogram Start: 04-13-2022 End: 04-13-2022 Subsequent hospital visit by physician Screen Mammo [facility] Mammogram Comment on above: Encounter for screen ing mammogram for breast cancer [Z12.31] Start: 04-10-2022 End: 04-10-2022 Patient encounter procedure Jozef Peterson APRN.FUR DYER Work Phone: Neurology Comment on above: Loss of consciousnes s (HCC) (Primary Dx) Start: 04-06-2022 End: 04-06-2022 Patient encounter procedure Renuka Morgan APRN.TRUCK ENGINE ASSEMBLER Work Phone: [facility] [place] Comment on above: Syncope, unspecified syncope type (Primary Dx); Seizure (HCC); Prolonged Q-T interval on ECG; Anxiety and depression; Need for influenza vaccination; Acute pain of both shoulders Start: 04-03-2022 End: 04-03-2022 Emergency department patient visit AGUSTINA KAY Facility:[facility] Start: 02-24-2022 End: 02-24-2022 Patient encounter procedure Patricia Longoria APRN.FUR DYER Work Phone: OB/Gynecology Comment on above: Encounter for gyneco logical examination (general) (routine) without abnormal findings (Primary Dx); Screening for cervical cancer; Encounter for screening for human papillomavirus (HPV); Encounter for screening mammogram for breast cancer Start: 02-24-2022 End: 02-24-2022 Patient encounter status Patricia Longoria APRN.FUR DYER Work Phone: OB/Gynecology Start: 01-04-2022 Refill Agustina ochoa MD Work Phone: [facility] [place] Comment on above: Refill Request Start: 11-07-2021 End: 11-07-2021 [facility] Renuka Morgan PRODUCT ACCOUNTANT.TRUCK ENGINE ASSEMBLER Work Phone: [facility] [place] Comment on above: Anxiety and depressi on (Primary Dx); Encounter for screening for diabetes mellitus; Encounter for screening for lipid disorder; Need for hepatitis C screening test Start: 10-31-2021 Telephone encounter Renuka greer PRODUCT ACCOUNTANT.TRUCK ENGINE ASSEMBLER Work Phone: [facility] [place] Comment on above: Patient Question; Ap pointment Start: 09-16-2021 Refill Renuka Robles PRDanis.TRUCK ENGINE ASSEMBLER Work Phone: [facility] [place] Comment on above: Refill Request Procedures Date Procedure Procedure Detail Performing Clinician Start: 07-12-2023 Lipid 1996 panel - S j carlos or Plasma Agustina Kay MD Work Phone: Start: 01-13-2023 Digital breast tomosynthesis bilateral Patricia Longoria PRODUCT ACCOUNTANT.FUR DYER Work Phone: Start: 06-10-2022 Diagnostic mammograp hy computer-aided detcj bi Patricia Longoria PRODUCT ACCOUNTANT.FUR DYER Work Phone: Start: 04-13-2022 DANY SCREENING W MEHUL Catarina Longoria PRODUCT ACCOUNTANT.FUR DYER Work Phone: Start: 04-13-2022 Mammography John nugent DO Work Phone: Start: 04-06-2022 INFLUENZA VACCINE QUADRIVALENT 6 MO - 64 YRS IM Renuka Morgan PRODUCT ACCOUNTANT.TRUCK ENGINE ASSEMBLER Work Phone: Start: 03-05-2021 Mammography Renuka Gibson ks PRODUCT ACCOUNTANT.TRUCK ENGINE ASSEMBLER Work Phone: Start: 04-16-2014 Lipid 1996 panel - S j carlos or Plasma [facility] Start: 06-10-2010 End: 01-19-2011 H/O: section PREV DELIVERY [654.23] Agustina Kay MD Work Phone: Plan of Treatment Date Care Activity Detail Author Start: 07-01-2032 Urine microalbumin profile [facility] Start: 07-11-2028 Lipid panel Lipid Screening [facility] Start: 02-24-2027 HPV TESTING HPV TESTING [facility] Start: 02-24-2027 PAP TESTING PAP TESTING [facility] Start: 02-24-2027 Screening for malign ant neoplasm of cervix [facility] Start: 07-11-2026 Diabetes Screening Diabetes Screenin g [facility] Start: 01-11-2026 End: 01-11-2026 Patient encounter procedure 01/11/2026 8:40 AM EDT Office Visit [facility] [address] [place], [place] [id number] Agustina Kay MD [address] [place], [place] [id number] 6 month followup Internal Medicine [facility] Comment on above: 6 month followup Start: 07-19-2025 Hepatitis B Vaccine (1 of 3 - 19+ 3-dose series) Hepatitis B Vaccine (1 of 3 - 19+ 3-dose series) [facility] Comment on above: Postponed from 07/23 (Declined at this time) Start: 07-19-2025 Pneumococcal Vaccine : 50+ (1 of 1 - PCV) Pneumococcal Vaccine: 50+ (1 of 1 - PCV) [facility] Comment on above: Postponed from 07/23 (Declined at this time) Start: 07-19-2025 Shingrix Vaccine (1 of 2) Barrera grix Vaccine (1 of 2) [facility] Comment on above: Postponed from 07/23 (Declined at this time) Start: 07-18-2025 End: 07-18-2025 Patient encounter procedure 07/18/2025 8:20 AM EDT Office Visit [facility] [address] [place] [address] Agustina Kay MD [address] [place], [place] [id number] Yearly physical [facility] [place] Comment on above: Yearly physical Start: 06-21-2025 End: 09-20-2025 CBC panel - Blood by Automated count COMPLETE BLOOD COUNT Lab Routine Encounter for long-term current use of medication Expected: 06/21/2025, Expires: 09/20/2025 [facility] Comment on above: Expected: 06/21/2025 , Expires: 09/20/2025 Start: 06-21-2025 End: 09-20-2025 Comprehensive metabolic 2000 panel - Serum or Plasma COMPREHENSIVE METABOLIC PANEL Lab Routine Encounter for long-term current use of medication Expected: 06/21/2025, Expires: 09/20/2025 [facility] Comment on above: Expected: 06/21/2025 , Expires: 09/20/2025 Start: 06-21-2025 End: 09-20-2025 Lipid 1996 panel - Serum or Plasma LIPID PANEL BASIC Lab Routine Encounter for long-term current use of medication Low HDL (under 40) Expected: 06/21/2025, Expires: 09/20/2025 [facility] Comment on above: Expected: 06/21/2025 , Expires: 09/20/2025 Start: 04-03-2025 DIABETES SCREEN DIABETES SCREEN [facility] Start: 04-03-2025 Diabetes Screening Diabetes Screenin g [facility] Start: 01-29-2025 End: 01-29-2025 Patient encounter procedure Mammogram Comment on above: Encounter for screen ing mammogram for breast cancer [Z12.31] Annual Start: 01-26-2025 Screening for malign ant neoplasm of breast Mammogram Screening [facility] Start: 01-12-2025 End: 01-12-2025 Patient encounter procedure 01/12/2025 8:40 AM EDT Office Visit [facility] [place] [address] [place] [address] Agustina Kay MD [address] [place] [address] 6 month follow up [facility] Medicine [facility] Comment on above: 6 month follow up Start: 07-19-2024 End: 10-18-2024 CBC panel - Blood by Automated count COMPLETE BLOOD COUNT Lab Routine Encounter for long-term current use of medication Expected: 07/19/2024, Expires: 10/18/2024 [facility] Comment on above: Expected: 07/19/2024 , Expires: 10/18/2024 Start: 07-19-2024 End: 10-18-2024 Comprehensive metabolic 2000 panel - Serum or Plasma COMPREHENSIVE METABOLIC PANEL Lab Routine Encounter for long-term current use of medication Expected: 07/19/2024, Expires: 10/18/2024 [facility] Comment on above: Expected: 07/19/2024 , Expires: 10/18/2024 Start: 07-19-2024 End: 10-18-2024 Lipid 1996 panel - Serum or Plasma LIPID PANEL BASIC Lab Routine Encounter for long-term current use of medication Low HDL (under 40) Expected: 07/19/2024, Expires: 10/18/2024 [facility] Comment on above: Expected: 07/19/2024 , Expires: 10/18/2024 Start: 07-19-2024 End: 07-19-2024 Patient encounter procedure 07/19/2024 8:40 AM EDT Office Visit Internal Medicine [facility] [address] [place] [address] Agustina Kay MD [address] [place] [address] Overall wellness,Medication,blo odwork follow up. [facility] Comment on above: Overall wellness,Med ication,bloodwork follow up. Start: 07-13-2024 Hepatitis B Vaccine (1 of 3 - 19+ 3-dose series) Hepatitis B Vaccine (1 of 3 - 19+ 3-dose series) [facility] Comment on above: Postponed from 07/23 (Declined at this time) Start: 07-13-2024 Hepatitis B Vaccine (1 of 3 - 3-dose series) Hepatitis B Vaccine (1 of 3 - 3-dose series) [facility] Comment on above: Postponed from 07/23 (Declined at this time) Start: 02-16-2024 Shingrix Vaccine (1 of 2) Barrera grix Vaccine (1 of 2) [facility] Comment on above: Postponed from 07/23 (Declined at this time) Start: 01-27-2024 End: 01-27-2024 Patient encounter procedure Mammogram Comment on above: Encounter for screen ing mammogram for breast cancer [Z12.31] Annual Well Start: 01-14-2024 Mammography Mammogram Screening [facility] Start: 01-14-2024 Screening for malign ant neoplasm of breast Mammogram Screening [facility] Start: 01-09-2024 Influenza vaccination Influenza Vacc ine (#1) [facility] Start: 01-03-2024 End: 01-03-2024 Patient encounter procedure 01/03/2024 8:40 AM EDT Office Visit Internal Medicine [facility] [address] [place] [address] Agustina Kay MD [address] [place] [address] 6 month check up medication [facility] [place] Comment on above: 6 month check up med ication Start: 12-16-2023 End: 12-16-2023 Patient encounter procedure 12/16/2023 9:30 AM EDT Appointment Ambulatory Surgery [address] [place], [place] [phone] Macario Holland MD [address] [place] [address] Ambulatory Surgery Start: 07-01-2023 COVID-19 VACCINE (4 - Booster for Moderna series) COVID-19 VACCINE (4 - Booster for Moderna series) [facility] Comment on above: Postponed from 05/23 (Declined at this time) Start: 07-01-2023 COVID-19 VACCINE (4 - Moderna series) COVID-19 VACCINE (4 - Moderna series) [facility] Comment on above: Postponed from 05/23 (Declined at this time) Start: 07-01-2023 HEPATITIS B (1 of 3 - 3-dose series) HEPATITIS B (1 of 3 - 3-dose series) [facility] Comment on above: Postponed from 07/23 (Declined at this time) Start: 07-01-2023 Hepatitis B Vaccine (1 of 3 - 3-dose series) Hepatitis B Vaccine (1 of 3 - 3-dose series) [facility] Comment on above: Postponed from 07/23 (Declined at this time) Start: 04-13-2023 Mammography MAMMOGRAM [facility] Start: 01-08-2023 Covid-19 Vaccine ( season) Covid-19 Vaccine () [facility] Start: 01-08-2023 Influenza vaccination INFLUENZA (#1) [facility] Start: 12-29-2022 End: 02-28-2023 CBC panel - Blood by Automated count CBC Lab Routine Encounter for long-term current use of medication Expected: 12/29/2022 (Approximate), Expires: 02/28/2023 [facility] Work Phone: Comment on above: Expected: 12/29/2022 (Approximate), Expires: 02/28/2023 Start: 12-29-2022 End: 02-28-2023 Comprehensive metabolic 2000 panel - Serum or Plasma COMP METABOLIC PANEL Lab Routine Encounter for long-term current use of medication Expected: 12/29/2022 (Approximate), Expires: 02/28/2023 [facility] Work Phone: Comment on above: Expected: 12/29/2022 (Approximate), Expires: 02/28/2023 Start: 12-29-2022 End: 02-28-2023 Lipid 1996 panel - Serum or Plasma LIPID PANEL BASIC Lab Routine Encounter for long-term current use of medication Lipid screening Expected: 12/29/2022 (Approximate), Expires: 02/28/2023 [facility] Work Phone: Comment on above: Expected: 12/29/2022 (Approximate), Expires: 02/28/2023 Start: 11-07-2022 COLORECTAL CANCER SCREENING COLORECTAL CANCER SCREENING [facility] Comment on above: Postponed from 07/23 (Declined at this time) Start: 2022 Pneumococcal Vaccine : 50+ (1 of 1 - PCV) Pneumococcal Vaccine: 50+ (1 of 1 - PCV) [facility] Start: 2022 SHINGRIX VACCINE (1 of 2) BARRERA GRIX VACCINE (1 of 2) [facility] Start: 03-05-2022 Mammography MAMMOGRAM [facility] Start: 01-26-2022 HPV TESTING HPV TESTING [facility] Start: 01-26-2022 PAP TESTING PAP TESTING [facility] Start: 01-08-2022 Influenza vaccination INFLUENZA (#1) [facility] Start: 11-07-2021 End: 01-07-2022 Comprehensive metabolic 2000 panel - Serum or Plasma COMP METABOLIC PANEL Lab Routine Encounter for screening for diabetes mellitus Expected: 11/07/2021, Expires: 01/07/2022 [facility] Work Phone: Comment on above: Expected: 11/07/2021 , Expires: 01/07/2022 Start: 11-07-2021 End: 01-07-2022 Hepatitis C virus Ab [Presence] in Serum HEP C AB IA W/CONF SCRN Lab Routine Need for hepatitis C screening test Expected: 11/07/2021, Expires: 01/07/2022 [facility] Work Phone: Comment on above: Expected: 11/07/2021 , Expires: 01/07/2022 Start: 11-07-2021 End: 01-07-2022 Lipid 1996 panel - Serum or Plasma LIPID PANEL BASIC Lab Routine Encounter for screening for lipid disorder Expected: 11/07/2021, Expires: 01/07/2022 [facility] Work Phone: Comment on above: Expected: 11/07/2021 , Expires: 01/07/2022 Start: 05-23-2021 COVID-19 VACCINE (4 - Booster for Moderna series) COVID-19 VACCINE (4 - Booster for Moderna series) [facility] Start: 02-05-2021 Urine microalbumin profile DTA P,TDAP,TD (2 - Td or Tdap) [facility] Start: 04-16-2019 Lipid 1996 panel - S j carlos or Plasma Lipid Screening [facility] Start: 04-16-2019 LIPID SCREEN LIPID SCREEN [facility] Start: 2017 COLOGUARD (FIT-DNA) COLOGUARD (FIT-D NA) [facility] Start: 2017 Colonoscopy COLONOSCOPY [facility] Start: 2017 COLORECTAL CANCER SCREENING COLORECTAL CANCER SCREENING [facility] Start: [address] COLONOGRAPHY [facility] Start: 2017 DIABETES SCREEN DIABETES SCREEN [facility] Start: 2017 FECAL OCCULT BLOOD FECAL OCCULT BLOO D [facility] Start: 2017 Screening for malign ant neoplasm of colon [facility] Start: 2017 SIGMOIDOSCOPY SIGMOIDOSCOPY [facility] Start: 1990 HEPATITIS C SCREENING HEPATITIS C SC REENING [facility] Start: 1972 HEPATITIS B (1 of 3 - 3-dose series) HEPATITIS B (1 of 3 - 3-dose series) [facility] End: 02-01-2025 DBT Breast - bilateral screening DANY SCREENING W MEHUL Radiology Routine Encounter for screening mammogram for breast cancer Dense breasts 1 Occurrences starting 01/03/2024 until 02/01/2025 [facility] Work Phone: Comment on above: 1 Occurrences starti ng 01/03/2024 until 02/01/2025 End: 02-25-2025 DBT Breast - bilateral screening DANY SCREENING W MEHUL Radiology Routine Encounter for screening mammogram for breast cancer 1 Occurrences starting 01/27/2024 until 02/25/2025 [facility] Work Phone: Comment on above: 1 Occurrences starti ng 01/27/2024 until 02/25/2025 DBT Breast - bilater al screening DANY SCREENING W MEHUL Radiology Routine Encounter for screening mammogram for breast cancer Dense breasts 01/27/2024 8:41 AM EDT [facility] Work Phone: End: 05-14-2023 Diagnostic mammography computer-aided detcj bi DANY DIAGNOSTIC BILAT Radiology Routine Abnormal mammogram 1 Occurrences starting 04/14/2022 until 05/14/2023 [facility] Work Phone: Comment on above: 1 Occurrences starti ng 04/14/2022 until 05/14/2023 End: 04-14-2023 ECG COMPLETE ECG COMPLETE ECG Routine 1 Occurrences starting 04/14/2022 until 04/14/2023 [facility] Work Phone: Comment on above: 1 Occurrences starti ng 04/14/2022 until 04/14/2023 End: 04-06-2023 Echocardiography ECHO Cardiology Routine Syncope, unspecified syncope type 1 Occurrences starting 04/06/2022 until 04/06/2023 [facility] Work Phone: Comment on above: 1 Occurrences starti ng 04/06/2022 until 04/06/2023 End: 04-10-2023 EPIL EEG ROUTINE EPIL EEG ROUTINE NEUROLOGY Routine Loss of consciousness (HCC) 1 Occurrences starting 04/10/2022 until 04/10/2023 [facility] Work Phone: Comment on above: 1 Occurrences starti ng 04/10/2022 until 04/10/2023 End: 03-26-2023 DANY SCREENING W MEHUL DANY SCREENING W MEHUL Radiology Routine Encounter for screening mammogram for breast cancer 1 Occurrences starting 02/24/2022 until 03/26/2023 [facility] [place] Work Phone: Comment on above: 1 Occurrences starti ng 02/24/2022 until 03/26/2023 PAP FLUID CERVICAL SCREENING PAP FLUID CERVICAL SCREENING Lab Routine Encounter for gynecological examination (general) (routine) without abnormal findings Screening for cervical cancer Encounter for screening for human papillomavirus (HPV) 02/24/2022 9:28 AM EDT [facility] [place] Work Phone: End: 07-01-2023 Screening colonoscopy COLONOSCOPY SCREENING Endoscopy Routine Special screening for malignant neoplasms, colon 1 Occurrences starting 07/01/2022 until 07/01/2023 [facility] [place] Work Phone: Comment on above: 1 Occurrences starti ng 07/01/2022 until 07/01/2023 End: 07-13-2024 Screening colonoscopy COLONOSCOPY SCREENING Endoscopy Routine Special screening for malignant neoplasms, colon 1 Occurrences starting 07/14/2023 until 07/13/2024 [facility] [place] Work Phone: Comment on above: 1 Occurrences starti ng 07/14/2023 until 07/13/2024 End: 07-19-2025 Screening colonoscopy COLONOSCOPY SCREENING Endoscopy Routine Screening for colon cancer 1 Occurrences starting 07/19/2024 until 07/19/2025 [facility] [place] Work Phone: Comment on above: 1 Occurrences starti ng 07/19/2024 until 07/19/2025 End: 05-14-2023 Us breast uni real time with image limited [facility] [place] Work Phone: Comment on above: 1 Occurrences starti ng 04/14/2022 until 05/14/2023 End: 05-06-2023 XR SHOULDER GENERAL 3V OR MORE AP/TRUE AP/OTHER LEFT XR SHOULDER GENERAL 3V OR MORE AP/TRUE AP/OTHER LEFT Radiology Routine Acute pain of both shoulders 1 Occurrences starting 04/06/2022 until 05/06/2023 [facility] [place] Work Phone: Comment on above: 1 Occurrences starti ng 04/06/2022 until 05/06/2023 End: 05-06-2023 XR SHOULDER GENERAL 3V OR MORE AP/TRUE AP/OTHER RIGHT XR SHOULDER GENERAL 3V OR MORE AP/TRUE AP/OTHER RIGHT Radiology Routine Acute pain of both shoulders 1 Occurrences starting 04/06/2022 until 05/06/2023 [facility] [place] Work Phone: Comment on above: 1 Occurrences starti ng 04/06/2022 until 05/06/2023 [facility] Immunizations Immunization Date Immunization Notes Care Provider [facility] 01-12-2025 influenza, seasonal, injectable, preservative free Agustina Kay MD Work Phone: [facility] 03-01-2024 influenza, seasonal, injectable Immunization [place] Work Phone: [facility] 02-15-2023 influenza, injectable, quadrivalent, contains preservative Agustina Kay MD Work Phone: [facility] 02-15-2023 influenza virus vaccine, unspecified formulation Agustina Kay MD Work Phone: [facility] 07-01-2022 tetanus and diphtheria toxoids, adsorbed, preservative free, for adult use (5 Lf of tetanus toxoid and 2 Lf of diphtheria toxoid) Agustina Kay MD Work Phone: [facility] 07-01-2022 TD(adult) unspecifie d formulation Agustina Kay MD Work Phone: [facility] [place] Work Phone: 04-06-2022 influenza, injectable, quadrivalent, contains preservative Renuka Morgan PRODUCT ACCOUNTANT.TRUCK ENGINE ASSEMBLER Work Phone: [facility] Work Phone: 04-08-2021 influenza, injectable, quadrivalent, contains preservative Renuka Morgan PRODUCT ACCOUNTANT.TRUCK ENGINE ASSEMBLER Work Phone: [facility] 02-16-2020 influenza virus vaccine, unspecified formulation Renuka Morgan PRODUCT ACCOUNTANT.TRUCK ENGINE ASSEMBLER Work Phone: [facility] Work Phone: 06-09-2019 influenza, injectable, quadrivalent, contains preservative Renuka Morgan PRODUCT ACCOUNTANT.TRUCK ENGINE ASSEMBLER Work Phone: [facility] 03-25-2018 influenza, injectable, quadrivalent, contains preservative Renuka Morgan PRODUCT ACCOUNTANT.TRUCK ENGINE ASSEMBLER Work Phone: [facility] Work Phone: 03-08-2017 influenza, injectable, quadrivalent, contains preservative Renuka Morgan PRODUCT ACCOUNTANT.TRUCK ENGINE ASSEMBLER Work Phone: [facility] Work Phone: 02-01-2016 influenza, injectable, quadrivalent, contains preservative Renuka Morgan PRODUCT ACCOUNTANT.TRUCK ENGINE ASSEMBLER Work Phone: [facility] 03-14-2015 influenza, injectable, quadrivalent, contains preservative Renuka Morgan PRODUCT ACCOUNTANT.TRUCK ENGINE ASSEMBLER Work Phone: [facility] Work Phone: 02-22-2014 influenza, seasonal, injectable Renuka Morgan PRODUCT ACCOUNTANT.TRUCK ENGINE ASSEMBLER Work Phone: [facility] Work Phone: 03-04-2013 influenza virus vaccine, unspecified formulation Renuka Morgan PRODUCT ACCOUNTANT.TRUCK ENGINE ASSEMBLER Work Phone: [facility] Work Phone: 03-19-2012 influenza virus vaccine, unspecified formulation Renuka Morgan PRODUCT ACCOUNTANT.TRUCK ENGINE ASSEMBLER Work Phone: [facility] 02-05-2011 influenza virus vaccine, unspecified formulation Renuka Morgan PRODUCT ACCOUNTANT.TRUCK ENGINE ASSEMBLER Work Phone: [facility] Work Phone: 02-05-2011 tetanus toxoid, reduced diphtheria toxoid, and acellular pertussis vaccine, adsorbed Renuka Morgan PRODUCT ACCOUNTANT.TRUCK ENGINE ASSEMBLER Work Phone: [facility] Work Phone: 02-27-2010 influenza virus vaccine, unspecified formulation Renuka Morgan PRODUCT ACCOUNTANT.TRUCK ENGINE ASSEMBLER Work Phone: [facility] Work Phone: 02-27-2009 influenza virus vaccine, unspecified formulation Renuka Morgan PRODUCT ACCOUNTANT.TRUCK ENGINE ASSEMBLER Work Phone: [facility] Work Phone: Payers Date Payer Category Payer Self-pay 2022 Unknown [id number] 2020 Medicaid UHC MEDICAID UHC COMM[employer]ITY [employer]AN MEDICAID [id number] 2020-Present [phone] [address] [place] [address] Medicaid [id number] 2020 Medicaid [id number] 2020 Medicaid [id number] Unknown [facility] [id number] Unknown [id number] Social History Date Type Detail Facility Start: 11-04-2010 End: 02-24-2022 Tobacco smoking status NHIS Never smoked tobacco [facility] Start: 04-08-2021 End: 01-12-2025 Alcohol intake Current non-drinker of alcohol (finding) [facility] Start: 04-07-2021 End: 04-04-2022 History SDOH Alcohol Frequency 1 [facility] Start: 04-07-2021 End: 04-04-2022 History SDOH Social Connections Phone 5 [facility] Start: 04-07-2021 End: 04-04-2022 History SDOH Social Connections Worship 2 [facility] Start: 04-07-2021 End: 04-04-2022 History SDOH Social Connections Meetings 3 [facility] Start: 04-07-2021 End: 04-04-2022 History SDOH Social Connections Living 4 [facility] Start: 06-02-2019 Education 17 [facility] Start: 1970 Sex Assigned At Female [facility] Start: 10-21-2021 End: 10-31-2021 Exposure to SARS-CoV-2 (event) Yes [facility] Start: 11-04-2010 End: 02-24-2022 Tobacco use and exposure Smokeless tobacco non-user [facility] Work Phone: Start: 02-14-2022 End: 04-06-2022 Exposure to SARS-CoV-2 (event) Not sure [facility] Start: 04-04-2022 History SDOH Alcohol Std Drinks 0 [facility] Start: 04-04-2022 End: 02-15-2023 History of Social function [facility] Start: 04-04-2022 End: 02-15-2023 Social connection and isolation panel [facility] Are you now , , , , never or living with a partner? [facility] How often to you hav e a drink containing alcohol? Never [facility] Start: 04-10-[address]ks containing alcohol do you have on a typical day? Patient does not drink [facility] Do you feel stress - tense, restless, nervous, or anxious, or unable to sleep at night because your mind is troubled all the time - these days [OSQ] Only a little [facility] (I/We) worried wheth er (my/our) food would run out before (I/we) got money to buy more. Never true [facility] In the past 12 month s, was there a time when you were not able to pay the mortgage or rent on time? No [facility] Start: 09-01-2018 Gender identity Identifies as female gender (finding) [facility] Do you feel stress - tense, restless, nervous, or anxious, or unable to sleep at night because your mind is troubled all the time - these days [OSQ] Not at all [facility] Do you feel stress - tense, restless, nervous, or anxious, or unable to sleep at night because your mind is troubled all the time - these days [OSQ] To some extent [facility] Functional Status Date Assessment Result Facility 12-05-2014 Are you deaf, or do you have serious difficulty hearing No 12/05/2014 10:43 AM Randa Larson MA No [facility] 12-05-2014 Are you blind, or do you have serious difficulty seeing, even when wearing glasses No 12/05/2014 10:43 AM Randa Larson MA [facility] 12-05-2014 Do you have serious difficulty walking or climbing stairs No 12/05/2014 10:43 AM Randa Larson MA [facility] 12-05-2014 Do you have difficul ty dressing or bathing No 12/05/2014 10:43 AM Randa Larson MA [facility] 12-05-2014 Because of a physica l, mental, or emotional condition, do you have difficulty doing errands alone such as visiting a physician's office or shopping No 12/05/2014 10:43 AM Randa Larson MA No [facility] Mental Status Date Assessment Result Facility 12-05-2014 Because of a physica l, mental, or emotional condition, do you have serious difficulty concentrating, remembering, or making decisions No 12/05/2014 10:43 AM Randa Larson MA No [facility] Clinical Notes 06-10-2010 to 02-01-2025 Patient InstructionsAgustina Kay MD - 01/12/2025 8:52 AM EDTPatient InstructionsAgustina Kay MD - 07/19/2024 8:40 AM EDTTelephone Encounter - Agustina Kay MD - 05/18/2024 2:07 PM EST Note Date & Type Note Facility 02-01-2025 Note HNO ID: [id number] Author: STU AGUDELO MD Service: ? Author Type: Physician Type: Progress Notes Filed: 02/01/2025 19:50 Note Text: The patient presents for requested ultrasound. Full report available in the "Imaging" tab in Epic. Stu Agudelo MD [facility] 02-01-2025 Note HNO ID: [id number] Author: ERMIAS BETTENCOURT MD Service: ? Author Type: Physician Type: Progress Notes Filed: 02/01/2025 17:38 Note Text: Supervisor Electronics Processing offered: Patient declinesTrey Griffin is a 54 year old Female who presents today for an endometrial biopsy for abnormal uterine bleeding. test: negative UNIVERSAL PROTOCOL / SAFETY CHECKLIST Procedure to be Performed: EMB Sign In: A Moment of CARE was completed. Appropriate PPE (Personal Protective Equipment) worn by all providers involved with the procedure. Special equipment not required. Patient/Surrogate Stated/Verified: Patient name, Date of , Relevant allergies, and The intended procedure Time Out: Relevant labs, photos, and/or imaging studies are not applicable. Intended patient and procedure match the source document(s) (e.g. consent, HANDP, associated studies [imaging, pathology]) match the intended patient and procedure. Consent obtained and matches the intended procedure. Yes. Correct side/site is not applicable. Medications required for this procedure are not applicable. Fire risk assessed and is not applicable. Implants: are not applicable. Sign Out: Specimens not collected. All instruments, equipment, possible retained foreign bodies are accounted for. Yes. The post-procedure plan of care has been communicated to the patient or surrogate. PROCEDURE: EXTERNAL GENITALIA: Normal in appearance without lesions VAGINA: Normal in appearance without lesions BIOPSY: Speculum placed into the vagina with excellent visualization of the cervix. Cervix cleaned with betadine. Anterior lip of cervix grasped with single toothed tenaculum. The cervix was stenotic. Attempted to dilate the cervix with dilators but unable to dilate past the internal cervical os. Sounded to 4 cm. Procedure Summary: Patient tolerated procedure well. ASSESSMENT: abnormal uterine bleeding PLAN: Stenotic cervix and unable to dilate. Discussed hysteroscopy DANDC. Will wait for pelvic US report to determine next step. Ermias Bettencourt DO [facility] 01-29-2025 Note HNO ID: [id number] Author: ERMIAS BETTENCOURT MD Service: ? Author Type: Physician Type: Progress Notes Filed: 01/29/2025 09:40 Note Text: Supervisor Electronics Processing offered: Patient declines. Mikhail is a 54 year old who presents for an annual gynecologic exam without complaints. Postmenopausal: No. Menstrual cycle every 28-30 days Flow 4 days. Getting more spotting in between periods now too. Skipped 1-2 menses this year. Having spotting mid cycle and that is not always after missed period HRT use: No. Still get period: Yes Bleeding amount bothersome: No Bleeding between periods: No Period symptoms: Cramps Menopause symptoms: Night sweats infrequent and managed with a fan Number of lifetime partners: 1 control frequency: Never HPV vaccine: No; Last pap smear: 02/24/2022 History of abnormal pap: No, all prior PAP smears have been normal Bothersome pelvic pain: No Last mammogram: today results pending History of abnormal mammogram: No OB History Gravida2 Para2 Term2 Preterm0 AB0 Living2 SAB0 IAB0 Ectopic0 Multiple0 Live Births2 Radiologic Electronic Specialist History LMP: 01/14/2025, Having periods Age at Menarche: 15 Age at First : Age at Menopause: Radiologic Electronic Specialist History Comments: Sexual Activity: Not Currently; Male Contraception: Tubal Ligation Menstrual Tracking History Flowsheet Row Office Visit from 01/29/2025 in OB/Gynecology Period Cycle (Days) 26 Period Duration (Days) 4 Menstrual Flow Moderate PAST MEDICAL HISTORY Diagnosis Date Dysthymic disorder Depression (non-psychotic) Mitral valve disorders(424.0) pt. questions. PAST SURGICAL HISTORY Procedure Laterality Date DELIVERY ONLY 10/30/2003 , low cervical DELIVERY ONLY 2010 , low transverse CHOLECYSTECTOMY 2001 LIG/TRNSXJ FLP TUBE ABDL/VAG APPR UNI/BI 2010 Tubal ligation PAST SURGICAL HISTORY OF WISDOM TEETH EXTRACTION TONSILLECTOMY PRIMARY/SECONDARY FAMILY HISTORY Problem Relation Age of Onset Diabetes Mother Diet Controled other (tachycardia) Mother Heart Paternal Grandfather Allergies Daughter [employer] SOCIAL HISTORY Social History Tobacco Use Smoking status: Never Smokeless tobacco: Never Vaping Use Vaping status: Never Used Substance Use Topics Alcohol use: No Drug use: No REVIEW OF SYSTEMS Abdomen: No abdominal pain, nausea, vomiting, diarrhea, or constipation. Bladder: No dysuria, gross hematuria, urinary frequency, urinary urgency, or incontinence Breast: No breast lumps, nipple d/c, overlying skin changes, redness or skin retraction Allergies and current medication updated:Yes SENSITIVE EXAM: The sensitive examination was discussed with the Patient or Patient's Authorized Health Diagnostics Teacher. As applicable, any other physician, advance practice provider, medical student, or other health professional student that will be observing or involved in the sensitive examination for educational or training purposes was discussed with the Patient or Authorized Health Diagnostics Teacher. The Patient or Authorized Health Diagnostics Teacher has agreed to proceed with the sensitive examination. (Sensitive examination includes inspection and/or palpation of the breasts, pelvis, prostate and anorectal regions). EXAM: BP 100/70 Ht 5' 8" (1.73m) Wt 165 lb 9.6 oz (75.1kg) LMP 01/14/2025 BMI 25.19 kg/(m2). GENERAL: pleasant, female in no apparent distress HEENT: Normocephalic and atraumatic NECK: full range of motion DERMATOLOGY: Normal, without lesions, non-icteric, and non-hirsute BREAST: soft, non-tender, symmetric, no dominant mass, normal nipple-areolar complex, no lymphadenopathy, and no nipple discharge CHEST: Normal inspiratory effort ABDOMEN: soft, non-tender, and no masses PELVIC: external genitalia normal, normal Bartholin's glands, urethra, [place]'s glands, no vulvar lesions, no cervical lesions, good vaginal support, normal appearing perineal body and perianal region, brown blood that is scant BIMANUAL: uterus normal size, shape and consistency, no adnexal masses, and non-tender RECTOVAGINAL: deferred. NEURO: exam grossly non-focal EXTREMITIES: normal ASSESSMENT/PLAN: 1) Health maintenance: Pap/HPV up to date. Mammogram up to date Nutrition, exercise and routine health maintenance exams reviewed. Colon cancer screening: PCP ordered TSH/lipids/glucose: followed by PCP DUB: Check pelvic US and EMB. Discussed menopausal expectations 2) Follow up one year or sooner as needed Ermias Bettencourt DO [facility] 01-29-2025 Note HNO ID: [id number] Author: BELÉN BENNETT RT(R) Service: ? Author Type: Technologist Type: Progress Notes Filed: 01/29/2025 09:46 Note Text: Radiology Service Progress Note PATIENT NAME: Mikhail Chung DATE OF SERVICE: January 29, 2025 TIME: 9:46 AM PATIENT IDENTITY VERIFICATION COMPLETED USING TWO (2) IDENTIFIERS: Name and Date of confirmed by patient verbally. FALL SCREENING: Has the patient had 2 falls in the last year or 1 fall with injury or currently using an Ambulatory Assistive Device (Walker, Cane, Wheelchair, Crutches, etc.)? No PATIENT GENDER DATA: Assigned female at . status: : No status: NO. PATIENT RELEVANT IMPLANT DATA REVIEWED: Not Applicable PATIENT PRESENTS WITH AN IMPLANTABLE OR ATTACHED POLYMERIZATION OVEN OPERATOR: No RADIOLOGY DEPARTMENT: Mammography PERIPHERAL IV DATA: Not applicable SIGNED BY: RT Kenia(R) January 29, 2025 9:46 AM [facility] 01-12-2025 Instructions Agustina Kay MD - 01/12/2025 9:13 AM EDT - Continue your alprazolam as before; a 40-tablet refill has been sent to your pharmacy (should last about two months). - Continue using ondansetron for motion sickness as needed; a 12-pill refill has been sent to your pharmacy. - Continue sertraline at your current dose; refills have been sent to your pharmacy. - Your flu vaccine was administered today. - Your colonoscopy screening order has been extended so it remains valid. - Complete the lab tests ordered before your July appointment (orders are active with an expected draw in June). documented in this encounter [facility] 01-12-2025 Note HNO ID: [id number] Author: AGUSTINA KAY MD Service: ? Author Type: Physician Type: Progress Notes Filed: 01/12/2025 09:49 Note Text: Subjective Mikhail Chung is a 54 year old female. HPI SUBJECTIVE: Mikhail Chung is a 54-year-old female presenting for medication refills. Mikhail requests refills for alprazolam, ondansetron, and sertraline. She reports that alprazolam is effective, with a 40-tablet supply lasting her a couple of months. She uses ondansetron for motion sickness, noting that her symptoms have worsened with age. She inquires if this is common, asking, "Do you think as you age sometimes it gets worse or no?" She finds relief by driving herself or sitting in the front seat of a vehicle. Sertraline is effective in maintaining emotional stability. She denies active seizures but mentions a past syncopal episode at a greenhouse, which was evaluated by a neurologist and mortgage broker. She denies lower extremity swelling, stating, "I haven't had swelling since I was ." She is scheduled for a colonoscopy and has upcoming lab work before her next appointment in July. 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 questions. Current Outpatient Medications Medication Sig ALPRAZolam (XANAX) 0.25 mg tablet Take 1 tablet by mouth two times a day as needed for anxiety for up to 60 days. ondansetron orally disintegrating (ZOFRAN ODT) 4 mg disintegrating tablet Take 1 tablet by mouth every 6 hours as needed for nausea/vomiting. sertraline (ZOLOFT) 100 mg tablet Take 1 tablet by mouth once daily. No current facility-administered medications for this visit. Review of Systems Objective BP 108/72 Pulse 80 Resp 16 Wt 74.6 kg (164 lb 7.4 oz) LMP 06/26/2024 (Exact Date) SpO2 99% BMI 25.01 kg/m? Last 5 Encounter Wt Readings: Date: Wt: 01/12/2025 74.6 kg (164 lb 7.4 oz) 07/19/2024 74.4 kg (163 lb 15.7 oz) 01/27/2024 76.1 kg (167 lb 12.8 oz) 01/03/2024 76.5 kg (168 lb 10.4 oz) 02/15/2023 80.3 kg (177 lb) No waist measurement recorded Estimated body mass index is 25.01 kg/m? as calculated from the following: Height as of 07/19/24: 172.7 cm (5' 8"). Weight as of this encounter: 74.6 kg (164 lb 7.4 oz). Last 5 Encounter BP Readings: Date: BP: 01/12/2025 108/72 07/19/2024 111/71 01/27/2024 102/72 01/03/2024 118/68 02/15/2023 106/66 Physical Exam Constitutional: Appearance: Normal appearance. HENT: Head: Normocephalic. Eyes: Conjunctiva/sclera: Conjunctivae normal. Cardiovascular: Rate and Rhythm: Normal rate and regular rhythm. Heart sounds: Normal heart sounds. Pulmonary: Effort: Pulmonary effort is normal. Breath sounds: Normal breath sounds. Musculoskeletal: Right lower leg: No edema. Left lower leg: No edema. Skin: General: Skin is warm and dry. Neurological: General: No focal deficit present. Mental Status: She is alert and oriented to person, place, and time. Psychiatric: Mood and Affect: Mood normal. Behavior: Behavior normal. Thought Content: Thought content normal. Judgment: Judgment normal. # Anxiety and depression (F41.9) - Stable on current regimen. - Continue sertraline as prescribed. - Continue alprazolam as prescribed; refill provided. # Motion sickness, sequela (T75.3XXS) - Stable; managed with ondansetron as needed. - Refill for ondansetron provided. # Encounter for immunization (Z23) - Administered influenza vaccine. Agustina Kay MD Recording using [employer] software for draft documentation of the visit was discussed with the patient/authorized international account representative; all questions welcomed and answered. Patient/authorized international account representative agreed to proceed [facility] 01-12-2025 History of Present illness Narrative Subjective Mikhail Chung is a 54 year old female. HPI SUBJECTIVE: Mikhail Chung is a 54-year-old female presenting for medication refills. Mikhail requests refills for alprazolam, ondansetron, and sertraline. She reports that alprazolam is effective, with a 40-tablet supply lasting her a couple of months. She uses ondansetron for motion sickness, noting that her symptoms have worsened with age. She inquires if this is common, asking, "Do you think as you age sometimes it gets worse or no?" She finds relief by driving herself or sitting in the front seat of a vehicle. Sertraline is effective in maintaining emotional stability. She denies active seizures but mentions a past syncopal episode at a greenhouse, which was evaluated by a neurologist and mortgage broker. She denies lower extremity swelling, stating, "I haven't had swelling since I was ." She is scheduled for a colonoscopy and has upcoming lab work before her next appointment in July. 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 questions. Current Outpatient Medications Medication Sig ALPRAZolam (XANAX) 0.25 mg tablet Take 1 tablet by mouth two times a day as needed for anxiety for up to 60 days. ondansetron orally disintegrating (ZOFRAN ODT) 4 mg disintegrating tablet Take 1 tablet by mouth every 6 hours as needed for nausea/vomiting. sertraline (ZOLOFT) 100 mg tablet Take 1 tablet by mouth once daily. No current facility-administered medications for this visit. Review of Systems Objective BP 108/72 Pulse 80 Resp 16 Wt 74.6 kg (164 lb 7.4 oz) LMP 06/26/2024 (Exact Date) SpO2 99% BMI 25.01 kg/m Last 5 Encounter Wt Readings: Date: Wt: 01/12/2025 74.6 kg (164 lb 7.4 oz) 07/19/2024 74.4 kg (163 lb 15.7 oz) 01/27/2024 76.1 kg (167 lb 12.8 oz) 01/03/2024 76.5 kg (168 lb 10.4 oz) 02/15/2023 80.3 kg (177 lb) No waist measurement recorded Estimated body mass index is 25.01 kg/m as calculated from the following: Height as of 3/12/25: 172.7 cm (5' 8"). Weight as of this encounter: 74.6 kg (164 lb 7.4 oz). Last 5 Encounter BP Readings: Date: BP: 01/12/2025 108/72 07/19/2024 111/71 01/27/2024 102/72 01/03/2024 118/68 02/15/2023 106/66 Physical Exam Constitutional: Appearance: Normal appearance. HENT: Head: Normocephalic. Eyes: Conjunctiva/sclera: Conjunctivae normal. Cardiovascular: Rate and Rhythm: Normal rate and regular rhythm. Heart sounds: Normal heart sounds. Pulmonary: Effort: Pulmonary effort is normal. Breath sounds: Normal breath sounds. Musculoskeletal: Right lower leg: No edema. Left lower leg: No edema. Skin: General: Skin is warm and dry. Neurological: General: No focal deficit present. Mental Status: She is alert and oriented to person, place, and time. Psychiatric: Mood and Affect: Mood normal. Behavior: Behavior normal. Thought Content: Thought content normal. Judgment: Judgment normal. # Anxiety and depression (F41.9) - Stable on current regimen. - Continue sertraline as prescribed. - Continue alprazolam as prescribed; refill provided. # Motion sickness, sequela (T75.3XXS) - Stable; managed with ondansetron as needed. - Refill for ondansetron provided. # Encounter for immunization (Z23) - Administered influenza vaccine. Agustina Kay MD Recording using ambient TwoTen software for draft documentation of the visit was discussed with the patient/authorized international account representative; all questions welcomed and answered. Patient/authorized international account representative agreed to proceed documented in this encounter [facility] 07-19-2024 Instructions Agustina Kay MD - 07/19/2024 9:21 AM EDT Images from the original note were not included. Miralax/Dulcolax Bowel Prep For this bowel preparation, you will need to purchase the following medications at any pharmacy: Over the counter Miralax (generic name is polyethylene glycol) 8.3 oz or 238 grams Four (4) Dulcolax (generic name is Bisacodyl) tablets 3 days prior to your procedure, you need to be on a low fiber diet (Such as popcorn, beans, seeds, nuts, salad and raw vegetables, corn, fresh and dried fruit and multi-grain bread) YOU MUST BE ON CLEAR LIQUIDS FOR 2 FULL DAYS PRIOR TO YOUR COLONOSCOPY Day one which would be two days before your colonoscopy, you will need to be on clear liquids all day. You may have coffee or tea-black only (no cream), clear broths (beef, chicken or vegetable), apple juice, white grape juice, pop, Gatorade, Powerade, lemonade, Jello, popsicles, Jason-aid, and water-But nothing red or dark purple in color and no dairy products, tomato or orange juices. Day two which would be the day before your colonoscopy continue clear liquids all day as above. And follow the instructions below: 8:00 AM - Mix the Miralax with 64 oz of Gatorade or another clear liquid of choice and place in refrigerator. Most people say the drink is better cold. 4:00 PM - Take 2 of the Dulcolax tablets with 8 oz of water. 6:00 PM - Start to drink the Miralax mixture. You must finish it by midnight. 8:00 PM - Take the other 2 Dulcolax tablets with 8 oz of water. You may continue to drink clear liquids while you are taking your prep and after you finish it as long as it is before midnight. Drink lots of fluids so you don t become dehydrated. Nothing to drink after midnight the night before the procedure unless you are instructed differently by the physician or nurses. Please remember to take your normal medications the morning of the procedure with a small sip of water especially your blood pressure medications. If you are diabetic, you need to contact your physician about how to take your diabetic medications and/or insulin during the prepping period and the day of your procedure. Any questions please call: Dr. Michelle or Dr. Pantoja or Dr. Holland [phone] [facility] nurses [phone] - Continue taking Zoloft (sertraline) as prescribed; you have enough refills to last until your next appointment on January 12. - Refill Xanax (alprazolam) prescription to have on hand as needed. - Schedule and complete a colonoscopy; the order has been placed, and you will be contacted to schedule the procedure. - Follow the Miralax prep instructions for the colonoscopy, which includes a liquid diet and consuming 2 liters of Miralax mixed with Gatorade. - Consider getting the shingles vaccine during your next appointment in December. - Maintain a healthy lifestyle by eating well, getting adequate sleep, drinking plenty of water, and exercising regularly. - Increase intake of omega-3 fatty acids by eating foods like salmon, edamame, flaxseed, and walnuts. - Next appointment is on January 12. documented in this encounter [facility] 07-19-2024 History of Present illness Narrative This note was created using Fly6ter. Subjective Mikhail Chung is a 53 year old female. HISTORY Mikhail Chung is a 53 year old lady here for yearly exam and follow up appointment. Mikhail Chung is a 53-year-old female with a history of FARHANA, presenting for a follow-up visit. Mikhail reports that her current dosage of sertraline is effectively managing her anxiety symptoms, despite recent stressors. She confirms adherence to her medication regimen and has sufficient supply until her next scheduled appointment in January. She also has alprazolam on hand for acute anxiety episodes and requests a refill, describing it as a safety net. She is working on improving her sleep hygiene, noting that she is a "night owl" and often experiences a burst of energy in the evening, which delays her bedtime. She is also focusing on maintaining a healthy lifestyle, including diet and exercise, to mitigate her risk of diabetes, given her family history of the condition. She has been gradually losing weight and is interested in increasing her muscle mass. She is up to date on her mammograms and Pap smears, but has not yet undergone colon cancer screening. She expresses a preference for a colonoscopy and requests to schedule one. She declines the hepatitis B and pneumonia vaccines at this time, but is considering the shingles vaccine in December. She is current on her tetanus vaccination, with the next dose due in 2032. She has two daughters, one of whom is graduating in April and plans to pursue a master's degree in speech-language pathology. 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 questions. Current Outpatient Medications Medication Sig ondansetron orally disintegrating (ZOFRAN ODT) 4 mg disintegrating tablet Take 1 tablet by mouth every 6 hours as needed for nausea/vomiting. ALPRAZolam (XANAX) 0.25 mg tablet Take 1 tablet by mouth two times a day as needed for anxiety for up to 60 days. sertraline (ZOLOFT) 100 mg tablet Take 1 tablet by mouth once daily. No current facility-administered medications for this visit. ALLERGIES Allergen Reactions Ambien [Zolpidem] Other: See Comments Sleep walking and eating in middle of the night Compazine [Prochlor* Mental Status Change Medrol [Methylpredn* Other: See Comments Possible rash/dermatitis Ultram [Tramadol Hc* Vomiting Zithromax [Azithrom* Diarrhea FAMILY HISTORY Problem Relation Age of Onset Diabetes Mother Diet Controled other (tachycardia) Mother Heart Paternal Grandfather Allergies Daughter Tree Nuts Social History Tobacco Use Smoking status: Never Smokeless tobacco: Never Vaping Use Vaping status: Never Used Substance Use Topics Alcohol use: No Drug use: No Review of Systems Objective BP 111/71 Pulse 80 Resp 16 Ht 172.7 cm (5' 8") Wt 74.4 kg (163 lb 15.7 oz) LMP 06/26/2024 (Exact Date) BMI 24.93 kg/m Last 5 Encounter Wt Readings: Date: Wt: 07/19/2024 74.4 kg (163 lb 15.7 oz) 01/27/2024 76.1 kg (167 lb 12.8 oz) 01/03/2024 76.5 kg (168 lb 10.4 oz) 02/15/2023 80.3 kg (177 lb) 07/01/2022 79.8 kg (176 lb) No waist measurement recorded Estimated body mass index is 24.93 kg/m as calculated from the following: Height as of this encounter: 172.7 cm (5' 8"). Weight as of this encounter: 74.4 kg (163 lb 15.7 oz). Last 5 Encounter BP Readings: Date: BP: 07/19/2024 111/71 01/27/2024 102/72 01/03/2024 118/68 02/15/2023 106/66 07/01/2022 118/84 Physical Exam Vitals reviewed. Constitutional: Appearance: Normal appearance. She is well-developed. HENT: Head: Normocephalic and atraumatic. Right Ear: Tympanic membrane, ear canal and external ear normal. Left Ear: Tympanic membrane, ear canal and external ear normal. Nose: Nose normal. Mouth/Throat: Mouth: Mucous membranes are moist. Eyes: Conjunctiva/sclera: Conjunctivae normal. Pupils: Pupils are equal, round, and reactive to light. Neck: Thyroid: No thyromegaly. Vascular: No carotid bruit. Cardiovascular: Rate and Rhythm: Normal rate and regular rhythm. Pulses: Normal pulses. Heart sounds: Normal heart sounds. No murmur heard. No friction rub. No gallop. Pulmonary: Effort: Pulmonary effort is normal. Breath sounds: Normal breath sounds. Abdominal: General: Bowel sounds are normal. There is no distension. Palpations: Abdomen is soft. There is no mass. Tenderness: There is no abdominal tenderness. Musculoskeletal: General: No deformity. Normal range of motion. Right lower leg: No edema. Left lower leg: No edema. Lymphadenopathy: Cervical: No cervical adenopathy. Skin: General: Skin is warm and dry. Coloration: Skin is not jaundiced or pale. Findings: No rash. Neurological: General: No focal deficit present. Mental Status: She is alert and oriented to person, place, and time. Cranial Nerves: No cranial nerve deficit. Sensory: No sensory deficit. Motor: No abnormal muscle tone. Coordination: Coordination normal. Deep Tendon Reflexes: Reflexes normal. Psychiatric: Mood and Affect: Mood normal. Behavior: Behavior normal. Thought Content: Thought content normal. Judgment: Judgment normal. Assessment and Plan # Routine medical exam (Z00.00) - Physical examination performed; no abnormalities detected. - Discussed lifestyle modifications including diet, exercise, and sleep to maintain overall health. - Patient's BMI is under 25, indicating a healthy weight. - Discussed the importance of maintaining muscle mass and reducing fat. - Discussed the benefits of omega-3 fatty acids for cardiovascular health. - Discussed the benefits of the shingles vaccine, which reduces risk by 90-95% and lasts for at least 13-14 years. - Patient is up to date on tetanus vaccine until 2032. - Ordered annual labs to monitor liver and kidney function due to Zoloft use; previous labs were normal. - Labs ordered are valid for the next 3 months. # Anxiety and depression (F41.9) - Condition is stable on current medication regimen. - Sertraline (Zoloft) prescription has three refills remaining, sufficient until next appointment on January 12. - Refilled alprazolam (Xanax) prescription for as-needed use. - Discussed the importance of medication adherence and regular follow-up. # Screening for colon cancer (Z12.11) - Discussed options for colon cancer screening. - Patient prefers colonoscopy; order placed. - Provided instructions for Miralax prep, which involves 2 liters of solution. - No family history of colon cancer. # Encounter for long-term current use of medication (Z79.899) - Patient is on long-term sertraline (Zoloft) therapy for depression. - Medication adherence is good; no issues reported. - Alprazolam (Xanax) used as needed for anxiety. - Discussed potential side effects and the importance of regular monitoring. # Low HDL (under 40) (E78.6) - Previous labs showed low HDL levels. - Discussed dietary modifications to increase HDL, including consumption of omega-3 rich foods like salmon, edamame, flaxseed, and walnuts. - Encouraged regular exercise to improve HDL levels. Agustina Kay MD documented in this encounter [facility] 07-19-2024 Note HNO ID: [id number] Author: AGUSTINA KAY MD Service: ? Author Type: Physician Type: Progress Notes Filed: 08/10/2024 13:52 Note Text: This note was created using Plasticellriter. Subjective Mikhail Chung is a 53 year old female. HISTORY Mikhail Chung is a 53 year old lady here for yearly exam and follow up appointment. Mikhail Chung is a 53-year-old female with a history of FARHANA, presenting for a follow-up visit. Mikhail reports that her current dosage of sertraline is effectively managing her anxiety symptoms, despite recent stressors. She confirms adherence to her medication regimen and has sufficient supply until her next scheduled appointment in January. She also has alprazolam on hand for acute anxiety episodes and requests a refill, describing it as a "safety net." She is working on improving her sleep hygiene, noting that she is a "night owl" and often experiences a burst of energy in the evening, which delays her bedtime. She is also focusing on maintaining a healthy lifestyle, including diet and exercise, to mitigate her risk of diabetes, given her family history of the condition. She has been gradually losing weight and is interested in increasing her muscle mass. She is up to date on her mammograms and Pap smears, but has not yet undergone colon cancer screening. She expresses a preference for a colonoscopy and requests to schedule one. She declines the hepatitis B and pneumonia vaccines at this time, but is considering the shingles vaccine in December. She is current on her tetanus vaccination, with the next dose due in 2032. She has two daughters, one of whom is graduating in April and plans to pursue a master's degree in speech-language pathology. 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 questions. Current Outpatient Medications Medication Sig ondansetron orally disintegrating (ZOFRAN ODT) 4 mg disintegrating tablet Take 1 tablet by mouth every 6 hours as needed for nausea/vomiting. ALPRAZolam (XANAX) 0.25 mg tablet Take 1 tablet by mouth two times a day as needed for anxiety for up to 60 days. sertraline (ZOLOFT) 100 mg tablet Take 1 tablet by mouth once daily. No current facility-administered medications for this visit. ALLERGIES Allergen Reactions Ambien [Zolpidem] Other: See Comments Sleep walking and eating in middle of the night Compazine [Prochlor* Mental Status Change Medrol [Methylpredn* Other: See Comments Possible rash/dermatitis Ultram [Tramadol Hc* Vomiting Zithromax [Azithrom* Diarrhea FAMILY HISTORY Problem Relation Age of Onset Diabetes Mother Diet Controled other (tachycardia) Mother Heart Paternal Grandfather Allergies Daughter Tree Nuts Social History Tobacco Use Smoking status: Never Smokeless tobacco: Never Vaping Use Vaping status: Never Used Substance Use Topics Alcohol use: No Drug use: No Review of Systems Objective BP 111/71 Pulse 80 Resp 16 Ht 172.7 cm (5' 8") Wt 74.4 kg (163 lb 15.7 oz) LMP 06/26/2024 (Exact Date) BMI 24.93 kg/m? Last 5 Encounter Wt Readings: Date: Wt: 07/19/2024 74.4 kg (163 lb 15.7 oz) 01/27/2024 76.1 kg (167 lb 12.8 oz) 01/03/2024 76.5 kg (168 lb 10.4 oz) 02/15/2023 80.3 kg (177 lb) 07/01/2022 79.8 kg (176 lb) No waist measurement recorded Estimated body mass index is 24.93 kg/m? as calculated from the following: Height as of this encounter: 172.7 cm (5' 8"). Weight as of this encounter: 74.4 kg (163 lb 15.7 oz). Last 5 Encounter BP Readings: Date: BP: 07/19/2024 111/71 01/27/2024 102/72 01/03/2024 118/68 02/15/2023 106/66 07/01/2022 118/84 Physical Exam Vitals reviewed. Constitutional: Appearance: Normal appearance. She is well-developed. HENT: Head: Normocephalic and atraumatic. Right Ear: Tympanic membrane, ear canal and external ear normal. Left Ear: Tympanic membrane, ear canal and external ear normal. Nose: Nose normal. Mouth/Throat: Mouth: Mucous membranes are moist. Eyes: Conjunctiva/sclera: Conjunctivae normal. Pupils: Pupils are equal, round, and reactive to light. Neck: Thyroid: No thyromegaly. Vascular: No carotid bruit. Cardiovascular: Rate and Rhythm: Normal rate and regular rhythm. Pulses: Normal pulses. Heart sounds: Normal heart sounds. No murmur heard. No friction rub. No gallop. Pulmonary: Effort: Pulmonary effort is normal. Breath sounds: Normal breath sounds. Abdominal: General: Bowel sounds are normal. There is no distension. Palpations: Abdomen is soft. There is no mass. Tenderness: There is no abdominal tenderness. Musculoskeletal: General: No deformity. Normal range of motion. Right lower leg: No edema. Left lower leg: No edema. Lymphadenopathy: Cervical: No cervical adenopathy. Skin: General: Skin is warm and dry. Coloration: Skin is not jaundiced or pale. Findings: No (more content not included)... [facility] 05-18-2024 Telephone encounter Note The following approved medication requests have been transmitted electronically. Requested Prescriptions Pending Prescriptions Disp Refills ondansetron orally disintegrating (ZOFRAN ODT) 4 mg disintegrating tablet 12 tablet 0 Sig: Take 1 tablet by mouth every 6 hours as needed for nausea/vomiting. Agustina Kay MD [facility] 05-18-2024 Miscellaneous Notes The following approved medication requests have been transmitted electronically. Requested Prescriptions Pending Prescriptions Disp Refills ondansetron orally disintegrating (ZOFRAN ODT) 4 mg disintegrating tablet 12 tablet 0 Sig: Take 1 tablet by mouth every 6 hours as needed for nausea/vomiting. Agustina Kay MD Prescription Refill Information The patient has been identified by name and date of : Yes Caregiver verified no other encounters exist for this prescription request: Yes Caregiver confirmed with patient/requestor that no other refills are due, in the near future, with this provider at this time: Yes The last office visit in the department: 07/14/23 Does the patient have a future office visit with this provider/department: Yes Requested Prescriptions Pending Prescriptions Disp Refills ondansetron orally disintegrating (ZOFRAN ODT) 4 mg disintegrating tablet 12 tablet 0 Sig: Take 1 tablet by mouth every 6 hours as needed for nausea/vomiting. Christel Vigil LPN May 18, 2024 9:53 AM documented in this encounter [facility] 05-18-2024 Telephone encounter Note Prescription Refill Information The patient has been identified by name and date of : Yes Caregiver verified no other encounters exist for this prescription request: Yes Caregiver confirmed with patient/requestor that no other refills are due, in the near future, with this provider at this time: Yes The last office visit in the department: 07/14/23 Does the patient have a future office visit with this provider/department: Yes Requested Prescriptions Pending Prescriptions Disp Refills ondansetron orally disintegrating (ZOFRAN ODT) 4 mg disintegrating tablet 12 tablet 0 Sig: Take 1 tablet by mouth every 6 hours as needed for nausea/vomiting. Christel Vigil LPN May 18, 2024 9:53 AM [facility] 04-03-2024 Telephone encounter Note Prescription Refill Information The patient has been identified by name and date of : Yes Caregiver verified no other encounters exist for this prescription request: Yes Caregiver confirmed with patient/requestor that no other refills are due, in the near future, with this provider at this time: Yes The last office visit in the department: 01/03/24 Does the patient have a future office visit with this provider/department: Yes 07/19/24 Requested Prescriptions Pending Prescriptions Disp Refills ALPRAZolam (XANAX) 0.25 mg tablet 40 tablet 0 Sig: Take 1 tablet by mouth two times a day as needed for anxiety for up to 60 days. Kisha Arana LPN April 03, 2024 2:51 PM [facility] 04-03-2024 Miscellaneous Notes Prescription Refill Information The patient has been identified by name and date of : Yes Caregiver verified no other encounters exist for this prescription request: Yes Caregiver confirmed with patient/requestor that no other refills are due, in the near future, with this provider at this time: Yes The last office visit in the department: 01/03/24 Does the patient have a future office visit with this provider/department: Yes 07/19/24 Requested Prescriptions Pending Prescriptions Disp Refills ALPRAZolam (XANAX) 0.25 mg tablet 40 tablet 0 Sig: Take 1 tablet by mouth two times a day as needed for anxiety for up to 60 days. Kisha Arana LPN April 03, 2024 2:51 PM documented in this encounter [facility] 01-31-2024 Note Formatting of this n ote might be different from the original. January 31, 2024 PID: [id number] Mikhail Chung [address] [place] [address] Dear Ms. Chung, We are pleased to inform you that the results of your recent breast imaging exam on 01/27/2024 are normal. Breast tissue can be either dense or not dense. Dense tissue makes it harder to find breast cancer on a mammogram and also raises the risk of developing breast cancer. Your breast tissue is dense. In some people with dense tissue, other imaging tests in addition to a mammogram may help find cancers. Talk to your healthcare provider about breast density, risks for breast cancer, and your individual situation. Early detection of cancer is very important. We also understand recommendations regarding breast cancer screening are controversial. Please discuss with your primary care provider which strategy is best for you and whether a mammogram is right for you. Your imaging studies and report will be kept on file at [facility] as part of your permanent medical record and are available for your continuing care. Thank you for allowing us to help in meeting your health care needs. Sincerely, Dr. Hawkins Interpreting Radiologist [facility] (Normal over 40) [facility] 01-31-2024 Miscellaneous Notes January 31, 2024 PID: [id number] Mikhail Chung [address] [place] [address] Dear Ms. Chung, We are pleased to inform you that the results of your recent breast imaging exam on 01/27/2024 are normal. Breast tissue can be either dense or not dense. Dense tissue makes it harder to find breast cancer on a mammogram and also raises the risk of developing breast cancer. Your breast tissue is dense. In some people with dense tissue, other imaging tests in addition to a mammogram may help find cancers. Talk to your healthcare provider about breast density, risks for breast cancer, and your individual situation. Early detection of cancer is very important. We also understand recommendations regarding breast cancer screening are controversial. Please discuss with your primary care provider which strategy is best for you and whether a mammogram is right for you. Your imaging studies and report will be kept on file at [facility] as part of your permanent medical record and are available for your continuing care. Thank you for allowing us to help in meeting your health care needs. Sincerely, Dr. Hawkins Interpreting Radiologist [facility] (Normal over 40) documented in this encounter [facility] 01-27-2024 Instructions Ermias Bettencourt MD - 01/27/2024 9:26 AM EDT Non-Hormonal Ways to [place] with Hot Flashes and Menopause Hormone therapy is the most effective therapy for hot flashes. It is also the only FDA approved method to treat hot flashes. However, other non-hormonal options are available for women who are suffering from symptoms, but are not yet ready to consider hormone therapy. Some women are not appropriate candidates for hormone therapy, such as those have been recently treated for breast cancer, ovarian cancer, or endometrial/uterine cancer. It is important to remember that when used appropriately, hormone therapy can be a safe and effective option for many women. Here we will review non-hormonal treatment options for women. Knowing the triggers of hot flashes Hot flashes may be precipitated by hot weather, smoking, caffeine, spicy foods, alcohol, tight clothing, heat and stress. Identify and avoid your hot flash "triggers." Some women notice hot flashes when they eat a lot of sugar. Exercising in warm temperatures might make hot flashes worse. Diet Avoiding caffeine, spicy foods, and alcohol can help lessen both the number and severity of hot flashes. Many women try to incorporate more plant estrogens into their diet. Plant estrogens, such as isoflavones, are thought to have weak estrogen-like effects that may reduce hot flashes. They may work in the body like a weak form of estrogen. Examples of plant estrogens include: soybeans, chickpeas, lentils, flaxseed, grains, beans, fruits, red clover and vegetables. In general, soybeans, chickpeas, and lentils are considered to have the most powerful plant estrogens, though their effect is much less than that of human estrogen. Try to choose natural foods rather than supplements. Also remember that only crushed or ground forms of flaxseed are likely to help (as compared to the whole seed or seed oil forms). What foods have high amounts of isoflavones Food Isoflavone Amount (Mg) In Food (100g) Soymilk 9.65 Soybeans, green, raw 151.17 Soy flour (textured) 148.61 148.61 Soybeans, dry roasted 128.35 Instant beverage soy, powder, not reconstituted 109.51 Miso soup mix, dry 60.39 Soybean chips 54.16 Tempeh, cooked 53.00 Soybean curd cheese 28.20 Tofu, silken 27.91 Tofu, yogurt 16.30 Source: [facility] -- [facility] Database on the Isoflavone Content of Foods, 1998 Lifestyle changes Reducing the temperature in a room, dressing in layers, and the use of a fan while asleep can be effective ways to help deal with troublesome hot flashes. Women who are overweight tend to have more bothersome hot flashes, therefore weight loss can be helpful. Quitting smoking has a dual importance during menopause. First, smoking contributes to the increased cardiovascular risks of being postmenopausal. Second, smokers tend to experience more hot flashes. Women who lead a sedentary life seem to suffer more from hot flashes; however, it is best to exercise in a cooler environment. Try deep, slow abdominal breathing (6 to 8 breaths per minute). Practice deep breathing for 15 minutes in the morning, 15 minutes in the evening and at the onset of hot flashes. For some women, wearing socks to bed is helpful as it can help to cool core body temperature. Relieving insomnia Keep the bedroom cool to prevent night sweats. Avoid using sleeping pills. Exercise daily. Avoid caffeine and alcohol at night. Take a warm bath or shower at bedtime. Try milk products at bedtime or during the night (but avoid products that contain caffeine). Coping with mood swings, fears, and depression Find a self-calming skill to practice, such as yoga, meditation or slow, deep breathing. Avoid tranquilizers, if possible. Engage in a creative outlet that fosters a sense of achievement. Stay connected with your family and community; nurture your friendships. Relieving painful intercourse Try using a vaginal water-based moisturizing lotion or lubricant during intercourse. These are sold without a prescription near the condoms in most stores. Common names include-Astroglide and [place] liquid . Avoid Vaseline , as it may lead to yeast infections. Prescription and nonprescription remedies A number of non-hormonal remedies are available for the treatment of hot flashes. Some of these remedies (e.g., black cohosh and soy products) are available vbej-[id number]-[id number] but are not FDA-approved. Some prescription medications are used off label to help reduce hot flashes. Using a product "off label" means that it is not FDA approved for the treatment of hot flashes, but is often used because it can be safe and effective for hot flash treatment.(considered the more effective non-hormonal treatments): Drug Side Effect Effectiveness venlafaxine (Effexor ) Nausea, change in bowel habits, headache (temporary side effects for most). Elevated blood pressure (at high doses) Effectiveness has been proven in several well-designed studies. One of the safer medications for women taking tamoxifen (no drug interaction). desvenlafaxine (Pristiq ) Similar to venlafaxine. Nausea, change in bowel habits, headache (temporary side effects for most). Elevated blood pressure (at high doses) Improvement in hot flashes compared to placebo has been shown. Newer med compared to venlafaxine, so a smaller number of studies are available. fluoxetine (Prozac ) Nausea, change in bowel habits, decreased libido, insomnia. Should be avoided in women taking tamoxifen. Improvement in hot flashes has been shown in well-designed studies. paroxetine (Paxil ) Nausea, change in bowel habits, decreased libido, dry mouth, weight gain (not common) Should be avoided in women taking tamoxifen. eTends to be more effective for sleep in women who are also suffering with insomnia. Improvement in hot flashes has been shown in well-designed studies. scitalopram (Lexapro ) Nausea, change in bowel habits, decreased libido, abnormal EKG (not common) Improvement in hot flashes has been shown in well-designed studies. Gabapentin (Neurontin ) Fatigue, dizziness, nausea, disorientation, swelling, weight gain Tends to be more effective for sleep in women who are also suffering with insomnia. Clonidine (Catapres ) Dry mouth, drowsiness, fatigue, constipation, lowers blood pressure Relieved hot flashes in some, but not all studies.Less commonly used than some of the other options. Non-prescription, herbal, urtd-fnx-vmthxpr therapies: Drug Side Effects Effectiveness Evening [place] Oil Nausea, diarrhea, headache. Only one well-designed study showing not effective. Black cohosh Mild stomach upset. Safe up to 6 months only due to possible estrogen-like effects. Liver toxicity has been reported. Some small, short-term studies have suggested benefits, however most studies do not suggest that it works. Soy (plant estrogen) Also referred to as phytoestrogens. Appears safe if consumed in foods. In supplement form, consistency of dose and quality can be a concern. Supplements are not recommended for breast cancer survivors For the most part, results from clinical studies show that phytoestrogens are not effective for treatment of hot flashes. Acupuncture Uncomfortable for some, often costly. Generally well-tolerated, but multiple visits required Individual trials have reported some benefits, but larger studies have not shown any improvement over placebo procedures. However some women do report benefits with this, so it is possible that more well-designed studies are needed to answer this question. Vitamin E 13% increase risk of heart failure. Might increase rate in those who use high doses for a long time. A higher risk of prostate cancer has also been shown, but applies only to men. One study showing effective. However the improvement seen in this was only one less hot flash per day compared to placebo. Are the fcre-eor-ustkvvh herbal products (botanicals) safe? While safe when taken in moderate amounts through diet, the consumption of extraordinary amounts of soy and isoflavone supplements may be harmful to women with a history of estrogen-dependent cancer, like breast cancer, and possibly to other women as well. More research is needed to determine the safety and effectiveness of botanical treatments. For example, Ginseng, [place], Wild yam, Progesterone cream, reflexology, and magnetic devices are sold to help menopausal symptoms, but there are no good studies looking at their safety or effectiveness. To make an informed decision about the use of these treatments, be sure to discuss them with your doctor. Because little is known about many botanicals, the best way to evaluate their safety and effectiveness is to become an educated consumer. Here are some tips to consider when shopping for alternative therapies. Ask yourself the following questions: What is the treatment? What does it involve? How does it work? Why does it work? Are there any risks? What are the side effects? Is it effective? (Ask for evidence or proof) How much does it cost? Once you answer these questions, discuss the therapy with your doctor. Make sure your doctor knows what therapy you are considering in order to discuss possible interactions or side effects with your current treatment. What are warning signs that a product may not be legitimate? When trying to determine whether or not a product is what it says it is, one of the elements you may want to look at is how the product is promoted. Be cautious of products promoted through: [employer] Direct mailings Crunched Ads disguised as valid news articles Ads in the back of magazines Additional red flags to look for include: Big claims: If products claim to be a "cure" for your condition, or gives outrageous claims, be cautious. Source: Be wary if the product is only offered through one collision worker or purchased only through a health care provider s office. Ingredients: Make sure all of the active ingredients are listed, and don t trust "secret formulas." Testimonials: Remember that only people who are satisfied with a product give testimonials and that they may be getting paid for their endorsement References: National Center for Complementary and Alternative Medicine. Vitamin E. nccam.nih.gov Assessed August 08, 2012 Machelle Engel et al. meta-analysis: High Dosage Vitamin E. Supplementation Might Increase All Cause Mortality. Annals of Internal Medicine May 13, 2004. annals.org National Center for Complementary and Alternative Medicine. Menopausal Symptoms and CAM. nccam.nih.gov Accessed August 08, 2012 [place] Men[employer], Hormone Therapy for women in 2012. www.menopause.org Assessed August 08, 2012 [place] [employer]stetricians and Gynecologists. Publications. The Menopause Years. www.acog.org Accessed 07/07/2010 Centers for Disease Control and Prevention. Women s Reproductive Health: Menopause. www.cdc.gov Accessed 07/07/2010 National [employer] on Aging. Age Page: Menopause. 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 Mikhail is a 53 year old who presents for an annual gynecologic exam without complaints. Postmenopausal: No. Menstrual cycles q 24-28 days HRT use: No. Last Pap: 03/02/2022 normal HPV: 02/27/2022 negative History of abnormal pap: No Last mammogram: today pending History of abnormal mammogram: No Sexually active: No OB History T2 L2 SAB0 IAB0 Ectopic0 Multiple0 Live Births2 Radiologic Electronic Specialist History LMP: 01/07/2024 (Exact Date), Having periods Age at Menarche: Age at First : Age at Menopause: Radiologic Electronic Specialist History Comments: Sexual Activity: Not Currently; Male Contraception: Tubal Ligation PAST MEDICAL HISTORY Diagnosis Date Dysthymic disorder Depression (non-psychotic) Mitral valve disorders(424.0) pt. questions. PAST SURGICAL HISTORY Procedure Laterality Date DELIVERY ONLY 10/30/2003 , low cervical DELIVERY ONLY 2010 , low transverse CHOLECYSTECTOMY 2001 LIG/TRNSXJ FLP TUBE ABDL/VAG APPR UNI/BI 2010 Tubal ligation PAST SURGICAL HISTORY OF WISDOM TEETH EXTRACTION TONSILLECTOMY PRIMARY/SECONDARY <AGE 12 FAMILY HISTORY Problem Relation Age of Onset Diabetes Mother Diet Controled other (tachycardia) Mother Heart Paternal Grandfather Allergies Daughter Tree Nuts SOCIAL HISTORY Social History Tobacco Use Smoking status: Never Smokeless tobacco: Never Vaping Use Vaping status: Never Used Substance Use Topics Alcohol use: No Drug use: No REVIEW OF SYSTEMS Abdomen: No abdominal pain, nausea, vomiting, diarrhea, or constipation. No bloating, early satiety, indigestion, or increased flatulence. Bladder: No dysuria, gross hematuria, urinary frequency, urinary urgency, or incontinence Breast: No breast lumps, nipple d/c, overlying skin changes, redness or skin retraction Allergies and current medication updated:Yes SENSITIVE EXAM: The sensitive examination was discussed with the Patient or Patient's Authorized Health Diagnostics Teacher. As applicable, any other physician, advance practice provider, medical student, or other health professional student that will be observing or involved in the sensitive examination for educational or training purposes was discussed with the Patient or Authorized Health Diagnostics Teacher. The Patient or Authorized Health Diagnostics Teacher has agreed to proceed with the sensitive examination. (Sensitive examination includes inspection and/or palpation of the breasts, pelvis, prostate and anorectal regions). EXAM: BP 102/72 Ht 5' 7" (1.70m) Wt 167 lb 12.8 oz (76.1kg) LMP 01/07/2024 BMI 26.28 kg/(m^2). GENERAL: pleasant, female in no apparent distress HEENT: Normocephalic and atraumatic DERMATOLOGY: Normal, without lesions, non-icteric, and non-hirsute BREAST: soft, non-tender, symmetric, no dominant mass, normal nipple-areolar complex, no lymphadenopathy, and no nipple discharge CHEST: Normal inspiratory effort ABDOMEN: soft, non-tender, and no masses PELVIC: external genitalia normal, normal Bartholin's glands, urethra, [place]'s glands, no vulvar lesions, no cervical lesions, good vaginal support, physiologic discharge present, normal appearing perineal body and perianal region BIMANUAL: uterus normal size, shape and consistency, no adnexal masses, and non-tender RECTOVAGINAL: deferred. NEURO: exam grossly non-focal EXTREMITIES: normal ASSESSMENT/PLAN: 1) Health maintenance: Pap/HPV up to date. Mammogram up to date Nutrition, exercise and routine health maintenance exams reviewed. Colon cancer screening: colonoscopy ordered by PCP TSH/lipids/glucose: followed by PCP 2) Follow up one year or sooner as needed Ermias Bettencourt DO documented in this encounter [facility] 01-27-2024 History of Present illness Narrative Radiology Service Progress Note PATIENT NAME: Mikhail Chung DATE OF SERVICE: January 27, 2024 TIME: 8:24 AM PATIENT IDENTITY VERIFICATION COMPLETED USING TWO (2) IDENTIFIERS: Name and Date of confirmed by patient verbally. FALL SCREENING: Has the patient had 2 falls in the last year or 1 fall with injury or currently using an Ambulatory Assistive Device (Walker, Cane, Wheelchair, Crutches, etc.)? No PATIENT GENDER DATA: Female. status: : No status: NO. PATIENT RELEVANT IMPLANT DATA REVIEWED: Not Applicable PATIENT PRESENTS WITH AN IMPLANTABLE OR ATTACHED POLYMERIZATION OVEN OPERATOR: No RADIOLOGY DEPARTMENT: Mammography PERIPHERAL IV DATA: Not applicable SIGNED BY: RT Kenia(R) January 27, 2024 8:24 AM documented in this encounter [facility] 01-03-2024 Instructions Agustina Kay MD - 01/03/2024 9:19 AM EDT - I have ordered a 3D mammogram, which is due in January. You can schedule this the day of your appointment with Dr. Cee Bettencourt on 01/26 if you prefer. - Refills for Alprazolam and Sertraline have been sent to your pharmacy. The Sertraline refill is marked "fill when due," so you can call the pharmacy when you're ready to have it filled. - A prescription for Ondansetron (Zofran) has been sent to your pharmacy to have on hand for occasional nausea. - Continue with your back exercises and consider incorporating yoga and stretching to help with your intermittent back spasms. - A parking placard form has been completed for you to use on days when your back is particularly painful. - Flu shots will be available in January; you can check the schedule on [employer]. documented in this encounter [facility] 01-03-2024 History of Present illness Narrative This note was created using Adictiz. Subjective Mikhail Chung is a 53 year old female. Patient presents with: F/U 6 months SUBJECTIVE: Mikhail Chung is a 53 year old year old lady here today for 6 month follow up appointment for review of medical conditions. Patient is a 53-year-old female presenting for a 6-month follow-up visit. She reports that her blood pressure has been well-controlled, and she is not experiencing any side effects from her medications. She is currently taking alprazolam and sertraline, both of which are due for refill. She also inquires about obtaining a prescription for ondansetron to have on hand for occasional nausea. Patient has a history of dense breasts and is due for a 3D mammogram in January. She has an appointment scheduled with Dr. Bettencourt on 01/26 and inquires about coordinating the mammogram with this appointment. Patient also reports intermittent back spasms that limit her ability to walk. She describes an episode in November where her back "locked up" while sitting on the toilet, causing significant pain and soreness for a couple of weeks. She requests a parking placard for use during these episodes. 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 questions. Current Outpatient Medications Medication Sig ALPRAZolam (XANAX) 0.25 mg tablet Take 1 tablet by mouth two times a day as needed for anxiety for up to 60 days. ondansetron orally disintegrating (ZOFRAN ODT) 4 mg disintegrating tablet Take 1 tablet by mouth every 6 hours as needed for nausea/vomiting. sertraline (ZOLOFT) 100 mg tablet Take 1 tablet by mouth once daily. No current facility-administered medications for this visit. Review of Systems Objective BP 118/68 Pulse 73 Temp 36.4 C (97.5 F) Resp 18 Wt 76.5 kg (168 lb 10.4 oz) LMP 12/12/2023 (Exact Date) SpO2 98% BMI (P) 25.64 kg/m Physical Exam Constitutional: Appearance: Normal appearance. HENT: Head: Normocephalic. Eyes: Conjunctiva/sclera: Conjunctivae normal. Cardiovascular: Rate and Rhythm: Normal rate and regular rhythm. Heart sounds: Normal heart sounds. Pulmonary: Effort: Pulmonary effort is normal. Breath sounds: Normal breath sounds. Musculoskeletal: Right lower leg: No edema. Left lower leg: No edema. Skin: General: Skin is warm and dry. Neurological: General: No focal deficit present. Mental Status: She is alert and oriented to person, place, and time. Psychiatric: Mood and Affect: Mood normal. Behavior: Behavior normal. Thought Content: Thought content normal. Judgment: Judgment normal. Assessment and Plan Anxiety and depression - Clinically stable on sertraline 100 mg daily; no side effects reported. - Refilled sertraline 100 mg with instructions to fill when due in February. - Refilled alprazolam; transmitted prescription to [facility] in [place]. Spasm of back muscles - Intermittent episodes of back muscle spasms causing significant discomfort and mobility limitations. - Discussed importance of core strengthening exercises and stretching to alleviate symptoms. - Provided education on utilizing previously learned physical therapy exercises. - Issued a 5-year handicap placard to assist with mobility during acute episodes. Dense breasts Encounter for screening mammogram for breast cancer - Due for annual screening mammogram; patient has a history of dense breast tissue. - Ordered 3D mammogram to be performed in conjunction with upcoming appointment with Dr. Cee Bettencourt on 01/26. Agustina Kay MD documented in this encounter [facility] 10-21-2023 Telephone encounter Note The following approved medication requests have been transmitted electronically. Requested Prescriptions Signed Prescriptions Disp Refills ALPRAZolam (XANAX) 0.25 mg tablet 40 tablet 0 Sig: Take 1 tablet by mouth two times a day as needed for anxiety for up to 60 days. Authorizing Provider: AGUSTINA KAY MD [facility] 10-21-2023 Miscellaneous Notes The following approved medication requests have been transmitted electronically. Requested Prescriptions Signed Prescriptions Disp Refills ALPRAZolam (XANAX) 0.25 mg tablet 40 tablet 0 Sig: Take 1 tablet by mouth two times a day as needed for anxiety for up to 60 days. Authorizing Provider: AGUSTINA KAY MD Prescription Refill Information The patient has been identified by name and date of : Yes Caregiver verified no other encounters exist for this prescription request: Yes Caregiver confirmed with patient/requestor that no other refills are due, in the near future, with this provider at this time: Yes The last office visit in the department: 07/14/23 Does the patient have a future office visit with this provider/department: Yes, 01/03/2024 Requested Prescriptions Pending Prescriptions Disp Refills ALPRAZolam (XANAX) 0.25 mg tablet 40 tablet 0 Sig: Take 1 tablet by mouth two times a day as needed for anxiety for up to 60 days. LIZABETH Jimenez October 21, 2023 7:59 AM documented in this encounter [facility] 10-21-2023 Telephone encounter Note Prescription Refill Information The patient has been identified by name and date of : Yes Caregiver verified no other encounters exist for this prescription request: Yes Caregiver confirmed with patient/requestor that no other refills are due, in the near future, with this provider at this time: Yes The last office visit in the department: 07/14/23 Does the patient have a future office visit with this provider/department: Yes, 01/03/2024 Requested Prescriptions Pending Prescriptions Disp Refills ALPRAZolam (XANAX) 0.25 mg tablet 40 tablet 0 Sig: Take 1 tablet by mouth two times a day as needed for anxiety for up to 60 days. LIZABETH Jimenez October 21, 2023 7:59 AM [facility] 07-14-2023 Instructions Agustina Kay MD - 07/14/2023 9:24 AM EST Images from the original note were not included. Miralax/Dulcolax Bowel Prep For this bowel preparation, you will need to purchase the following medications at any pharmacy: Over the counter Miralax (generic name is polyethylene glycol) 8.3 oz or 238 grams Four (4) Dulcolax (generic name is Bisacodyl) tablets 3 days prior to your procedure, you need to be on a low fiber diet (Such as popcorn, beans, seeds, nuts, salad and raw vegetables, corn, fresh and dried fruit and multi-grain bread) YOU MUST BE ON CLEAR LIQUIDS FOR 2 FULL DAYS PRIOR TO YOUR COLONOSCOPY Day one which would be two days before your colonoscopy, you will need to be on clear liquids all day. You may have coffee or tea-black only (no cream), clear broths (beef, chicken or vegetable), apple juice, white grape juice, pop, Gatorade, Powerade, lemonade, Jello, popsicles, Jason-aid, and water-But nothing red or dark purple in color and no dairy products, tomato or orange juices. Day two which would be the day before your colonoscopy continue clear liquids all day as above. And follow the instructions below: 8:00 AM - Mix the Miralax with 64 oz of Gatorade or another clear liquid of choice and place in refrigerator. Most people say the drink is better cold. 4:00 PM - Take 2 of the Dulcolax tablets with 8 oz of water. 6:00 PM - Start to drink the Miralax mixture. You must finish it by midnight. 8:00 PM - Take the other 2 Dulcolax tablets with 8 oz of water. You may continue to drink clear liquids while you are taking your prep and after you finish it as long as it is before midnight. Drink lots of fluids so you don t become dehydrated. Nothing to drink after midnight the night before the procedure unless you are instructed differently by the physician or nurses. Please remember to take your normal medications the morning of the procedure with a small sip of water especially your blood pressure medications. If you are diabetic, you need to contact your physician about how to take your diabetic medications and/or insulin during the prepping period and the day of your procedure. Any questions please call: Dr. Michelle or Dr. Pantoja or Dr. Holland [phone] [facility] nurses [phone] documented in this encounter [facility] 07-14-2023 History of Present illness Narrative This note was created using NoteWriter. Subjective Mikhail Chung is a 52 year old female. HISTORY Mikhail Chung is a 52 year old lady here for yearly exam and follow up appointment. Doing better now. Mother doing better. Has been taking care of her with health issues. 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 questions. Current Outpatient Medications Medication Sig ALPRAZolam (XANAX) 0.25 mg tablet Take 1 tablet by mouth two times a day as needed for anxiety for up to 60 days. ondansetron orally disintegrating (ZOFRAN ODT) 4 mg disintegrating tablet Take 1 tablet by mouth every 6 hours as needed for nausea/vomiting. sertraline (ZOLOFT) 100 mg tablet Take 1 tablet by mouth once daily. No current facility-administered medications for this visit. ALLERGIES Allergen Reactions Ambien [Zolpidem] Other: See Comments Sleep walking and eating in middle of the night Compazine [Prochlor* Mental Status Change Medrol [Methylpredn* Other: See Comments Possible rash/dermatitis Ultram [Tramadol Hc* Vomiting Zithromax [Azithrom* Diarrhea FAMILY HISTORY Problem Relation Age of Onset Diabetes Mother Diet Controled other (tachycardia) Mother Heart Paternal Grandfather Allergies Daughter Tree Nuts Social History Tobacco Use Smoking status: Never Smokeless tobacco: Never Vaping Use Vaping Use: Never used Substance Use Topics Alcohol use: No Drug use: No See diagnoses and orders Review of Systems Objective BP (P) 112/74 (BP Site: Left Arm, BP Position: Sitting, BP Cuff Size: Regular Adult) Resp (P) 16 Ht (P) 172.7 cm (5' 8") Wt (P) 77.6 kg (171 lb) LMP 01/26/2022 (Approximate) BMI (P) 26.00 kg/m Last 5 Encounter Wt Readings: Date: Wt: 02/15/2023 80.3 kg (177 lb) 07/01/2022 79.8 kg (176 lb) 04/14/2022 78.5 kg (173 lb) 04/10/2022 77.7 kg (171 lb 4.8 oz) 04/06/2022 77.6 kg (171 lb) No waist measurement recorded Estimated body mass index is 26 kg/m (pended) as calculated from the following: Height as of this encounter: (P) 172.7 cm (5' 8"). Weight as of this encounter: (P) 77.6 kg (171 lb). Last 5 Encounter BP Readings: Date: BP: 02/15/2023 106/66 07/01/2022 118/84 04/14/2022 122/76 04/10/2022 116/68 04/06/2022 116/72 Physical Exam Vitals reviewed. Constitutional: Appearance: Normal appearance. She is well-developed. HENT: Head: Normocephalic and atraumatic. Right Ear: Tympanic membrane, ear canal and external ear normal. Left Ear: Tympanic membrane, ear canal and external ear normal. Nose: Nose normal. Eyes: Conjunctiva/sclera: Conjunctivae normal. Neck: Thyroid: No thyromegaly. Vascular: No carotid bruit. Cardiovascular: Rate and Rhythm: Normal rate and regular rhythm. Pulses: Normal pulses. Heart sounds: Normal heart sounds. No murmur heard. No friction rub. No gallop. Pulmonary: Effort: Pulmonary effort is normal. Breath sounds: Normal breath sounds. Abdominal: General: Bowel sounds are normal. There is no distension. Palpations: Abdomen is soft. There is no mass. Tenderness: There is no abdominal tenderness. Musculoskeletal: General: No deformity. Normal range of motion. Lymphadenopathy: Cervical: No cervical adenopathy. Skin: General: Skin is warm and dry. Coloration: Skin is not jaundiced or pale. Findings: No rash. Neurological: General: No focal deficit present. Mental Status: She is alert and oriented to person, place, and time. Cranial Nerves: No cranial nerve deficit. Sensory: No sensory deficit. Motor: No abnormal muscle tone. Coordination: Coordination normal. Deep Tendon Reflexes: Reflexes normal. Psychiatric: Attention and Perception: Attention and perception normal. Mood and Affect: Mood and affect normal. Speech: Speech normal. Behavior: Behavior normal. Thought Content: Thought content normal. Judgment: Judgment normal. Component Latest Ref Rng & Units 04/08/2021 04/03/2022 07/12/2023 WBC 3.70 - 11.00 k/uL 6.59 5.27 RBC 3.90 - 5.20 m/uL 4.66 4.82 Hemoglobin 11.5 - 15.5 g/dL 13.5 14.1 Hematocrit 36.0 - 46.0 % 39.8 42.6 MCV 80.0 - 100.0 fL 85.4 88.4 MCH 26.0 - 34.0 pg 29.0 29.3 MCHC 30.5 - 36.0 g/dL 33.9 33.1 RDW-CV 11.5 - 15.0 % 12.8 12.8 Platelet Count 150 - 400 k/uL 229 200 MPV 9.0 - 12.7 fL 9.7 10.9 Neut% % 73.4 Abs Neut (ANC) 1.45 - 7.50 k/uL 4.84 Lymph% % 15.9 Abs Lymph 1.00 - 4.00 k/uL 1.05 [place]% % 7.6 Abs [place] <0.87 k/uL 0.50 Eosin% % 2.6 Abs Eosin <0.46 k/uL 0.17 Baso% % 0.2 Abs Baso <0.11 k/uL <0.03 Immature Gran % % 0.3 IMMATURE GRANS (ABS) <0.10 k/uL <0.03 NRBC /100 WBC 0.0 Absolute nRBC <0.01 k/uL <0.01 <0.01 DTYPE Auto Protein, Total 6.3 - 8.0 g/dL 6.7 6.7 Albumin 3.9 - 4.9 g/dL 4.1 4.3 Calcium 8.5 - 10.2 mg/dL 8.6 8.9 Bilirubin, Total 0.2 - 1.3 mg/dL 0.7 0.7 Alkaline Phosphatase 34 - 123 U/L 56 55 AST 13 - 35 U/L 17 11 (L) ALT 7 - 38 U/L <5 (L) 6 (L) Glucose 74 - 99 mg/dL 121 (H) 83 BUN 7 - 21 mg/dL 12 14 Creatinine 0.58 - 0.96 mg/dL 0.78 0.79 Sodium 136 - 144 mmol/L 137 140 Potassium 3.7 - 5.1 mmol/L 3.7 3.9 Chloride 97 - 105 mmol/L 101 102 CO2 22 - 30 mmol/L 24 27 Anion Gap 9 - 18 mmol/L 12 11 eGFR >=60 mL/min/1.73m 93 91 Cholesterol, Total <200 mg/dL 158 Triglyceride <150 mg/dL 89 HDL Cholesterol >39 mg/dL 36 (L) Non HDL Cholesterol <130 mg/dL 122 Fasting Time hrs 10 VLDL Cholesterol <30 mg/dL 18 TC:HDL Ratio <5.10 4.39 LDL Cholesterol <100 mg/dL 104 (H) LDL:HDL Ratio <2.54 2.89 (H) TSH 0.270 - 4.200 uU/mL 1.690 T3 79 - 165 ng/dL 125 Free T4 0.9 - 1.7 ng/dL 1.3 Magnesium 1.7 - 2.3 mg/dL 2.2 Assessment and Plan Encounter Diagnosis ICD-10-CM 1. Routine medical exam Z00.00 2. Anxiety and depression F41.9 ALPRAZolam (XANAX) 0.25 mg tablet F32.A 3. Special screening for malignant neoplasms, colon Z12.11 COLONOSCOPY SCREENING Patient here for yearly exam and follow up. Above issues addressed with patient. Patient involved in shared decision making for management of medical issues. History and medications reviewed. Epic updated as needed Refills taken care of and meds adjusted as indicated after reviewed history, exam and labs. Health Maintenance reviewed. Updated record and/or ordered tests as recorded. Encouraged on efforts at healthy diet and regular exercise and adequate sleep. Agustina Kya MD [facility] OPEN ACCESS QUESTIONNAIRE 1. Are you currently having any new or unusual stomach/gastrointestinal issues at this time such as constipation, diarrhea, abdominal pain, rectal bleeding etc?No 2. Do you have any difficulty swallowing? No 3. Do you have any implanted devices such as a defibrillator, pacemaker, cardiac stents or deep brain stimulator? No 4. Do you take any Blood thinners such as Coumadin, Plavix, Xarelto, Eliquis, Brilinta or any other blood thinner? No 5. Do you have any new or past cardiac (heart) or pulmonary (lung) issues? No 6. Do you currently use any oxygen? No 7. Have you been hospitalized in the past 6 weeks? No 8. Have you had difficulty with anesthesia previously re: Difficult intubation? No Other difficulty or allergic reaction to anesthesia other than post op N/V? No 9. Are you on dialysis? No 10. Do you have any bleeding disorders such as hemophilia or Factor 5? No 11. Are you an Insulin Dependent Diabetic? No IF ANY OF THE TOP ELEVEN QUESTIONS ARE ANSWERED YES PLEASE SCHEDULE THE PATIENT FOR A CONSULT. N/A 12. Is the patient's BMI 40 or greater? No:Body mass index is 26 kg/m (pended).. 13. Do you take any narcotics or anti-Anxiety medications? Not at increased risk; does not take alprazolam often 14. Do you use any illegal or recreational drugs including marijuana? No 15. Any alcohol use: No. 16. Have you been diagnosed with chronic liver disease such as hepatitis or cirrhosis? No 17. Do you have a seizure disorder? No 18. Do you have ulcerative colitis or Crohn's disease? No 19. Are you or could you be ? No 20. Any other important health information we should be made aware of prior to your colonoscopy? No To be completed by LIP: Did patient have MAC anesthesia with a previous endoscopy procedure? No Patient appropriate for Open Access Colonoscopy: Yes: appropriate for Open Access Procedure Checklist: Prior to closing the encounter: Complete questionnaire: Yes Confirm Prep order has been Ordered/Pended: Yes. Patient's procedure could be delayed if not given the script for the prep. Please ensure the prep is escripted to pharmacy or printed. Instructions for the prep will print upon filing or pending this smartset. Please send all open access questionnaires to [facility] Pool #[id number] documented in this encounter [facility] 01-13-2023 History of Present illness Narrative Radiology Service Progress Note PATIENT NAME: Mikhail Chung DATE OF SERVICE: January 13, 2023 TIME: 1:12 PM PATIENT IDENTITY VERIFICATION COMPLETED USING TWO (2) IDENTIFIERS: Name and Date of confirmed by patient verbally. FALL SCREENING: Has the patient had 2 falls in the last year or 1 fall with injury or currently using an Ambulatory Assistive Device (Walker, Cane, Wheelchair, Crutches, etc.)? No PATIENT GENDER DATA: Female. status: : No status: NO. PATIENT RELEVANT IMPLANT DATA REVIEWED: Not Applicable RADIOLOGY DEPARTMENT: Mammography PERIPHERAL IV DATA: Not applicable SIGNED BY: RT Kenia(R) January 13, 2023 1:12 PM documented in this encounter [facility] 11-13-2022 History of Present illness Narrative null ( ) Visit Summary for Mikhail Chung - Gender: Female - Date of : 1970 Date: [id number] - Duration: 11 minutes Patient: Mikhail Chung Provider: Dilcia Mullins Patient Contact Information Address [address] [place] [address] [phone] Visit Topics Motion Sickness [Added By: Self - 2022-11-13] Triage Questions REQUIRED: Do you have Medicare or Medicaid Insurance?Answer [Medicaid ] Do you have a cough, shortness of breath, difficulty breathing, fever, chills, headache, sore throat, muscles aches, acute change in smell or taste?Answer [No] Have you been in contact with anyone confirmed with COVID 19 or suspected of having COVID 19 within the past 14 days?Answer [No] Do you have any vulnerable family members in the home (, , weak immune system, lung disease, active cancer, elderly)?Answer [No] Do you have any of the following: weak immune system, asthma or chronic lung disease, kidney problems and on dialysis, active cancer, diabetes or heart disease or high blood pressure, HIV or organ transplant?Answer [No] Are you currently working in a healthcare facility?Answer [No] What is the address where you are currently located? This is important in case of a medical emergency.Answer [[address] [place] [address] [place] [address]] Please enter a number I can contact you in the event we are disconnected.Answer [[phone]] Conversation Transcripts [Notification] You are connected with Family [facility] Physician.[Notification] Mikhail Chung is located in [place].[Notification] Mikhail Chung has shared health history... Diagnosis Effects of abnormal gravitation forces, initial encounter Value: T75.81xA Code: ICD-10-CM Procedures Value: [id number] Code: CPT-4 OFFICE O/P EST SF 10-19 MIN Value: [id number] Code: CPT-4 OL DIG E/M SVC 11-20 MIN Medications Prescribed ondansetron Dose : 1 tablet Strength : 8 mg Route : oral Frequency : 3 times a day. Patient Instructions : Take as needed for nausea Refills : 0 Instructions to the Pharmacist : Please expedite if possible, thank you so much. Substitutions allowed Zoloft Frequency : Provider Notes Clinician has verified patient location and identification[_] If patient is a minor parent/guardian and patient are both present.Mode of Communication: [_] Phone[x] VideoHistory of Present IllnessThe patient is a pleasant 52 y/o female who is currently experiencing motion sickness [place] [address] [place] [address] Pt states that she is now at her destination and still feels as if she is moving. No vertigo. Threw up once. Took a nap - this helped a little. Drinking a lot of water. No headache.Past Medical History: anxiety/depressionPast Surgical History: x 2Medications: zoloftAllergies: compazine, ultramSocial History:Tobacco or other inhalant use?[_] Yes [x] NoAlcohol use?[_] Yes [x] NoRecreational drug use?[_] Yes [x] NoIf the patient is female, is she or nursing?[_] Yes [x] NoComments: LMP - todayExaminationGeneral: [x] Normal [_] AbnormalNormal mentationEyes:[x] Normal [_] AbnormalMouth:[x] Normal [_] AbnormalNeck:[x] Normal [_] AbnormalRespiratory:[x] Normal [_] AbnormalSkin: [x] Normal [_] AbnormalExtremities: [x] Normal [_] AbnormalNeuro:[x] Normal [_] AbnormalNo gross deficitsAssessment - Motion sicknessPlan1. Medications: a. Zofran, Transderm scop patches 2. Referral or follow up: seek in person eval if failing to improve in 24 hrsAdditional recommendations1. If you received a prescription at this visit and you have a question or problem, please call [phone] for prescription assistance.2. Please print a copy of this note and send it to your regular doctor or take it to your next visit so it may be included in your medical record.3. Please see your primary care provider on an annual basis or more frequently if directed. 4. If you are experiencing any new or worsening symptoms that you believe may be a medical emergency, please seek in-person care immediately.The patient voiced understanding and agreement with plan. Electronically signed by: Dilcia Mullins( ) documented in this encounter [facility] 10-02-2022 Miscellaneous Notes The following approved medication requests have been transmitted electronically. Requested Prescriptions Signed Prescriptions Disp Refills ALPRAZolam (XANAX) 0.25 mg tablet 40 tablet 0 Sig: Take 1 tablet by mouth twice daily as needed for anxiety for up to 60 days. Authorizing Provider: AGUSTINA KAY MD Patient has been identified by name and date of : Yes, Provider Lucas Date 10/01/22 Time 10:45am Patient phones for refill(s): Requested Prescriptions Pending Prescriptions Disp Refills ALPRAZolam (XANAX) 0.25 mg tablet 40 tablet 0 Sig: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 04/10/22 1010 04/10/22 1013 BP: 124/68 117/78 116/68 Pulse: 75 70 95 SpO2: 97% 100% 100% Weight: 77.7 kg (171 lb 4.8 oz) Physical Examination General Appearance: Well appearing, alert, in no acute distress, well-hydrated, well nourished. Head: Normocephalic Pulm: Breathing comfortably Neck: Supple Psych: Cooperative, appropriate affect Neurological Examination: Mental Status: Alert and Oriented to Place, Person, Time and Situation and Patient follows commands.. Language: Is intact to Comprehension, Fluency and Repetition Cranial Nerves: CNII: Visual acuity normal, visual huitron full to confrontation CNIII, IV, : Pupils equal, round and reactive to light, full extraoccular movements, without nystagmus CN V: Facial sensation intact bilaterally to fine touch, masseter 5/5 CN VII: Facial muscles symmetric and strong CN VIII: Hears finger rub well bilaterally CN IX: Gag Reflex not examined CN X: Palate elevates symmetrically CN XI: Full strength shoulder shrug bilaterally CN XII: Tongue protrusion full and midline Motor Exam: Tone - Normal Tone noted in all extremities Bulk - Normal bulk noted in all muscles tested. Inspection - Normal, no fasciculations or tremors noted. Power: MUSCLES Upper Extremity RIGHT LEFT Deltoid 5/5 5/5 Biceps 5/5 5/5 Triceps 5/5 5/5 Wrist Extension 5/5 5/5 Wrist Flexion 5/5 5/5 Finger Flexion 5/5 5/5 Finger Extension 5/5 5/5 Finger Abd 5/5 5/5 Finger Add 5/5 5/5 MUSCLES Lower Extremity RIGHT LEFT Hip Flexion 5/5 5/5 Hip Extension 5/5 5/5 BiFem (Knee Flex) 5/5 5/5 Quads (Knee Ext) 5/5 5/5 Gastroc (Plantflx) 5/5 5/5 TibAnt (Dorsiflx) 5/5 5/5 TibPost (Ank Add) 5/5 5/5 Sensory Examination Sensation is intact to temperature, light touch and vibratory sense. Reflexes Right Left Bicep 2/4 2/4 Tricep 2/4 2/4 BrRad 2/4 2/4 Knee 3/4 3/4 Ankle 2/4 2/4 Coordination: finger-to- nose-finger intact bilaterally Gait: Patient's gait is normal, can heel and toe walk Romberg: Negative DATA REVIEWED Actual films/image/tracing reviewed and summarized as follows: Previous CT brain, laboratory evaluation at ER Old records reviewed and summarized as follows: ER visit on 04/03/22 Assessment/Plan Assessment & Plan: Mikhail Chung is a 51 year old female otherwise healthy. Her examination demonstrates normal orthostatic vitals. Patient with isolated event of loss of consciousness in parking lot. EMS had a concern for epilepsy due to shaking of limbs after she lost consciousness. Patient was not fatigued, confused or altered following the event. Low suspicion for epilepsy at this time as description of event is consistent with vasovagal syncope as she became overheated that led to a convulsive like episode of syncope. She has a past history of feeling near syncopal triggered by overheating seeing blood or needle sticks. We will obtain an EEG to be thorough, although epilepsy is unlikely. Patient okay to drive at this time. Patient instructed to stay hydrated, drinking about 2L of water a day She was also instructed to avoid triggers that make her feel light headed or "off." No need for arranged follow up at this time, but patient was instructed to reach out should anything change or worsen. All questions answered, patient agreeable to plan of care. Mikhail was seen today for er f/u and seizures. Diagnoses and all orders for this visit: Loss of consciousness (HCC) - EPIL EEG ROUTINE; Future Ana Laura Lucas PA-C [facility] Neurology Attestation: I have reviewed the clinical details obtained and documented by Ana Laura Lucas PA-C and I have participated in the reed components. I discussed the case and the management plans with Ana Laura Lucas PA-C, and I fully agree with the recommendations as outlined above. Edits to the note are indicated by italics and the note reflects my input. I spent a total of 45 minutes on the date of the service which included preparing to see the patient, [id number] patient care, completing clinical documentation, obtaining and/or reviewing separately obtained history, performing a medically appropriate examination, counseling and educating the patient/family/caregiver, and ordering medications, tests, or procedures. My impression and recommendations were discussed at length with the patient (and family members, if present). The patient and family (if present) voiced understanding to my recommendations. All questions were answered. The patient was provided with a detailed after visit summary highlighting my impression and recommendations. Jozef Peterson APRN.CNP [facility] Neurological [facility] April 10, 2022 11:39 AM documented in this encounter [facility] 04-06-2022 History of Present illness Narrative SUBJECTIVE: HEPATITIS B(1 of 3 - 3-dose series) Never done HEPATITIS C SCREENING Never done LIPID SCREEN due on 04/16/2019 DTAP,TDAP,TD(2 - Td or Tdap) due on 02/05/2021 COVID-19 VACCINE(4 - Booster for Moderna series) due on 05/23/2021 INFLUENZA(1) due on 01/08/2022 MAMMOGRAM due on 03/05/2022 HPI Mikhail Chung is a 51 year old female.PMH significant for ACTIVE PROBLEM LIST Insomnia, Unspecified Anxiety State Depressive Disorder, Not Elsewhere Classified Thrombocytopenia, Unspecified (Hcc) She was seen at [facility] emergency department April 03, 2022. Notes indicate remote history of seizure not currently taking any medication. Notes that she was in a store. Reported twitching of her 4 extremities by bystanders to the EMS. On arrival to the ER no complaints of weakness numbness or trouble speaking. No significant headache neck pain or back pain or other injury. She has not been ill. Exam was unremarkable. EKG completed and showed no ischemic changes, QTC at 44 ms. Clinical impression was indeterminant whether this was syncope or seizure. Possible long QT interval. Cardiology visit was recommended. Possible seizure with no driving until seen by neurologist recommended. Today notes she was standing for about 30 minutes before she fell. Notes that she was feeling flushed and warm prior to the episode and started to walk outside. No recurrence of symptoms since seen in the ER. She notes both shoulders are aching but range of motion and strength is preserved. Otherwise no current complaints. Without report ofheadache, chest pain, palpitations, dyspnea, peripheral edema, orthopnea, fatigue, and PND. No speech or movement difficulties. Review of Systems Constitutional: Negative. Respiratory: Negative. Cardiovascular: Negative. Neurological: Negative. Objective BP 116/72 Pulse 72 Resp 16 Wt 77.6 kg (171 lb) LMP 02/17/2022 BMI 25.62 kg/m Physical Exam Vitals and nursing note reviewed. Constitutional: Appearance: Normal appearance. HENT: Head: Normocephalic and atraumatic. Eyes: Conjunctiva/sclera: Conjunctivae normal. Cardiovascular: Rate and Rhythm: Normal rate and regular rhythm. Pulses: Carotid pulses are 2+ on the right side and 2+ on the left side. Radial pulses are 2+ on the right side and 2+ on the left side. Heart sounds: Normal heart sounds. Pulmonary: Effort: Pulmonary effort is normal. Breath sounds: Normal breath sounds. Abdominal: General: Bowel sounds are normal. Palpations: Abdomen is soft. Musculoskeletal: Right shoulder: Tenderness present. Normal range of motion. Left shoulder: Tenderness present. Normal range of motion. Skin: General: Skin is warm and dry. Neurological: General: No focal deficit present. Mental Status: She is alert and oriented to person, place, and time. ALLERGIES Allergen Reactions Ambien [Zolpidem] Other: See Comments Sleep walking and eating in middle of the night Compazine [Prochlor* Mental Status Change Medrol [Methylpredn* Other: See Comments Possible rash/dermatitis Ultram [Tramadol Hc* Vomiting Zithromax [Azithrom* Diarrhea ALPRAZolam (XANAX) 0.25 mg tablet^Take 1 tablet by mouth twice daily as needed for anxiety for up to 60 days.^Disp: 40 tablet^Rfl: 0 sertraline (ZOLOFT) 50 mg tablet^Take 1 tablet by mouth once daily.^Disp: 90 tablet^Rfl: 3 PAST MEDICAL HISTORY Diagnosis Date Dysthymic disorder Depression (non-psychotic) Mitral valve disorders(424.0) pt. questions. Social History Tobacco Use Smoking status: Never Smokeless tobacco: Never Substance Use Topics Alcohol use: No Drug use: No Component Latest Ref Rng & Units 04/03/2022 WBC 3.70 - 11.00 k/uL 6.59 RBC 3.90 - 5.20 m/uL 4.66 Hemoglobin 11.5 - 15.5 g/dL 13.5 Hematocrit 36.0 - 46.0 % 39.8 MCV 80.0 - 100.0 fL 85.4 MCH 26.0 - 34.0 pg 29.0 MCHC 30.5 - 36.0 g/dL 33.9 RDW-CV 11.5 - 15.0 % 12.8 Platelet Count 150 - 400 k/uL 229 MPV 9.0 - 12.7 fL 9.7 Neut% % 73.4 Abs Neut (ANC) 1.45 - 7.50 k/uL 4.84 Lymph% % 15.9 Abs Lymph 1.00 - 4.00 k/uL 1.05 [place]% % 7.6 Abs [place] <0.87 k/uL 0.50 Eosin% % 2.6 Abs Eosin <0.46 k/uL 0.17 Baso% % 0.2 Abs Baso <0.11 k/uL <0.03 Immature Gran % % 0.3 IMMATURE GRANS (ABS) <0.10 k/uL <0.03 NRBC /100 WBC 0.0 Absolute nRBC <0.01 k/uL <0.01 DTYPE Auto Color Yellow Yellow Clarity Clear Cloudy (A) Glucose, Urine Negative Negative Bilirubin, Urine Negative Negative Ketones, Urine Negative Negative Specific [place], Ur 1.005 - 1.030 >=1.030 (H) Hemoglobin/Blood,Ur Negative 3+ (A) pH, Urine 5.0 - 8.0 5.5 Protein, Urine Urobilinogen 0.2-1.0 EU/dL 0.2 EU/dL Nitrites Negative Negative Leukest Negative Negative WBC, Urine 0-5 /HPF 0-5 /HPF RBC, Urine 0-3 /HPF 0-3 /HPF Bacteria None Seen /HPF Few (A) Epithelial Cells /HPF Few Hyaline Cast 0 /LPF 4-10 /LPF (A) Granular Cast 0 /LPF >10 /LPF (A) Protein, Total 6.3 - 8.0 g/dL 6.7 Albumin 3.9 - 4.9 g/dL 4.1 Calcium 8.5 - 10.2 mg/dL 8.6 Bilirubin, Total 0.2 - 1.3 mg/dL 0.7 Alkaline Phosphatase 34 - 123 U/L 56 AST 13 - 35 U/L 17 ALT 7 - 38 U/L <5 (L) Glucose 74 - 99 mg/dL 121 (H) BUN 7 - 21 mg/dL 12 Creatinine 0.58 - 0.96 mg/dL 0.78 Sodium 136 - 144 mmol/L 137 Potassium 3.7 - 5.1 mmol/L 3.7 Chloride 97 - 105 mmol/L 101 CO2 22 - 30 mmol/L 24 Anion Gap 9 - 18 mmol/L 12 eGFR >=60 mL/min/1.73m 93 Phencyclidine Negative Negative Benzodiazepines Urine Negative Negative Cocaine Urine Negative Negative Amphetamines Negative Negative Cannabinoids, Urine Negative Negative Opiates Negative Negative Barbiturates Negative Negative Ethanol, Urine <11 mg/dL <11 Oxycodone, Urine Negative Negative PT Sec 9.7 - 13.0 sec 11.1 PT INR 0.9 - 1.3 1.1 Magnesium 1.7 - 2.3 mg/dL 2.2 Ethanol <11 mg/dL <11 APTT 23.0 - 32.4 sec 24.3 SULEMAN High Sensitivity <12 ng/L 10 NT Pro BNP <125 pg/mL 64 Fentanyl Urine Negative Negative COVID 19 Result Not Detected SARS-CoV-2 (Agent of COVID-19) Not Detected by RT-PCR or equivalent method. ASSESSMENT/PLAN: 1. Syncope, unspecified syncope type - ICD9: 780.2, ICD10: R55 (primary diagnosis) - ECHO - PERFLUTREN LIPID MICROSPHERES 1.1 MG/ML INJECTION IN NS 10 ML - SODIUM CHLORIDE 0.9 % (FLUSH) INJECTION SYRINGE 2. Seizure (HCC) - ICD9: 780.39, ICD10: R56.9 - CONSULT TO NEUROLOGY 3. Prolonged Q-T interval on ECG - ICD9: 794.31, ICD10: R94.31 - CONSULT TO CARDIOLOGY 4. Anxiety and depression - ICD9: 300.00, 311, ICD10: F41.9, F32.A Will decrease zoloft from 100 mg to 50 mg due to known possible adverse effect of QT prolongation - SERTRALINE 50 MG TABLET 5. Need for influenza vaccination - ICD9: V04.81, ICD10: Z23 - INFLUENZA VACCINE QUADRIVALENT 6 MO - 64 YRS IM 6. Acute pain of both shoulders - ICD9: 719.41, ICD10: M25.511, M25.512 - XR SHOULDER GENERAL 3V OR MORE AP/TRUE AP/OTHER LEFT - XR SHOULDER GENERAL 3V OR MORE AP/TRUE AP/OTHER RIGHT Syncope versus seizure. Initial lab work has been negative. EKG showed some prolongation of QTC. Will decrease dose of sertraline for now. She has appointments with cardiology and neurology scheduled. Endorse sufficient fluid intake for now, adequate oral intake, OTC compression socks for prolonged sitting or standing. Continue with avoidance of driving and also standing water without attendance by other for now. Renuka Morgan APRN.CNS Medical Decision Making: Problems: Moderate: New problem with uncertain prognosis Data: Unique test(s) ordered: 1 Risk: Moderate: Drug management Medical Decision Making Level: 4 - Moderate documented in this encounter [facility] 02-24-2022 History of Present illness Narrative Mikhail is a 51 year old who presents for an annual gynecologic exam without complaints. Menses: cycles every 25-30 days and 3 days of flow. Contraception: tubal ligation HPV vaccine: N/A Last Pap: 2016 normal HPV: negative History of abnormal pap: No Last mammogram: 2020normal Sexually active: No OB History T2 L2 SAB0 IAB0 Ectopic0 Multiple0 Live Births2 Radiologic Electronic Specialist History LMP: 01/31/2019, Having periods Age at Menarche: Age at First : Age at Menopause: Radiologic Electronic Specialist History Comments: Sexual Activity: Not Currently; Male Contraception: Tubal Ligation PAST MEDICAL HISTORY Diagnosis Date Dysthymic disorder Depression (non-psychotic) Mitral valve disorders(424.0) pt. questions. PAST SURGICAL HISTORY Procedure Laterality Date DELIVERY ONLY 10/30/2003 , low cervical DELIVERY ONLY 2010 , low transverse LIGATE FALLOPIAN TUBE 2011 Tubal ligation PAST SURGICAL HISTORY OF WISDOM TEETH EXTRACTION REMOVAL GALLBLADDER 2002 REMOVAL OF TONSILS,<12 Y/O FAMILY HISTORY Problem Relation Age of Onset Diabetes Mother Diet Controled Heart Paternal Grandfather Allergies Daughter [employer] Nuts SOCIAL HISTORY Social History Tobacco Use Smoking status: Never Smokeless tobacco: Never Substance Use Topics Alcohol use: No Drug use: No REVIEW OF SYSTEMS Abdomen: No abdominal pain, nausea, vomiting, diarrhea, or constipation. No bloating, early satiety, indigestion, or increased flatulence. Bladder: No dysuria, gross hematuria, urinary frequency, urinary urgency, or incontinence. Breast: No breast lumps, nipple d/c, overlying skin changes, redness or skin retraction. Allergies and current medication updated:Yes EXAM: LMP 01/31/2019 GENERAL: pleasant, female in no apparent distress HEENT: Normocephalic, atraumatic, mucus membranes moist, and no lesions NECK: Supple, full range of motion, no adenopathy, and thyroid normal DERMATOLOGY: Normal, without lesions, non-icteric, and non-hirsute BREAST: soft, non-tender, symmetric, no dominant mass, normal nipple-areolar complex, no lymphadenopathy, and no nipple discharge CHEST: Normal inspiratory effort ABDOMEN: soft, non-tender, and no masses PELVIC: external genitalia normal, normal Bartholin's glands, urethra, [place]'s glands, no vulvar lesions, no cervical lesions, good vaginal support, physiologic discharge present, normal appearing perineal body and perianal region BIMANUAL: uterus normal size, shape and consistency, no adnexal masses, and non-tender RECTOVAGINAL: deferred. NEURO: alert and oriented x3,exam grossly non-focal EXTREMITIES: normal ASSESSMENT/PLAN: 1) Health maintenance: Pap done with HPV. Mammogram ordered. Nutrition, exercise and routine health maintenance exams reviewed. Calcium/Vitamin D supplementation information provided. 2) Contraception: tubal sterilization. Contraceptive options reviewed and information provided. 3) STD screening: NA 4) Follow up one year or sooner as needed Patricia Longoria APRN.ENA documented in this encounter [facility] 01-06-2022 Miscellaneous Notes The following approved medication requests have been transmitted electronically. Requested Prescriptions Signed Prescriptions Disp Refills ALPRAZolam (XANAX) 0.25 mg tablet 40 tablet 0 Sig: Take 1 tablet by mouth twice daily as needed for anxiety for up to 60 days. Authorizing Provider: AGUSTINA KAY MD SARINA: 11/07/2021 NOV: 07/01/2022 Last refill: 06/30/2021 QTY: 40 Refills: 0 documented in this encounter [facility] 07-01-2022 History of Present illness Narrative AMBULATORY TELEPHONE VISIT Mikhail Chung has consented to this telephone encounter. Persons Present: patient Chief Complaint/Reason: follow up anxiety and depression HPI: She notes feeling well on current dosing of sertraline. Anxiety and depression seem well managed. No recent counseling. No voiced SI HI. Occasional use of alprazolam, has sufficent on hand for now. Notes recent COVID infection, feeling improved, still with some nasal congestion and drainage. Data Reviewed: EPIC chart Exam: Alert, oriented, pleasant, answering questions appropriately in full sentences without shortness of breath cough or wheezing noted. Assessment: (F41.9, F32.A) Anxiety and depression (primary encounter diagnosis) (Z13.1) Encounter for screening for diabetes mellitus (Z13.220) Encounter for screening for lipid disorder (Z11.59) Need for hepatitis C screening test Plan: 1. Anxiety and depression - ICD9: 300.00, 311, ICD10: F41.9, F32.A (primary diagnosis) She notes doing well and 100 mg sertraline daily. Defers counseling for now. - SERTRALINE 100 MG TABLET Health maintenance: 2. Encounter for screening for diabetes mellitus - ICD9: V77.1, ICD10: Z13.1 - COMP METABOLIC PANEL 3. Encounter for screening for lipid disorder - ICD9: V77.91, ICD10: Z13.220 - LIPID PANEL BASIC 4. Need for hepatitis C screening test - ICD9: V73.89, ICD10: Z11.59 - HEP C AB IA W/CONF SCRN 6 mo follow up Agustina Kay MD Total Time Spent: 20 minutes Renuka Morgan APRN.TRUCK ENGINE ASSEMBLER documented in this encounter [facility] 10-31-2021 Miscellaneous Notes Patient calls back and notified that appointment was switched to virtual appointment. Patient voiced understanding. Amanda Dowling RN Called and left a voicemail for the Patient to call back and ask for a nurse to receive the providers message. Marisol Heck RN OK to switch to video Patient has appt with Renuka Morgan on 11/07/21 for follow up of depression/anxiety . She reports she tested positive for covid on 10/29/21 and her symptoms started 10/27/21. She states she has only nasal congestion and no other symptoms. She is asking if appt can be switched to Virtual just to decrease any spread of germs? She states she could come in if needed. This nurse unable to switch appt to virtual-if INTM nurse could do this please, if approved? Please call patient to inform her if can switch to virtual. Thank you. documented in this encounter [facility] 09-17-2021 Miscellaneous Notes Okayed Patient has been identified by name and date of : Yes Patient phones for refill(s): Pending Prescriptions Disp Refills SERTRALINE 100 MG TABLET 30 tablet 1 Sig: Take 1 tablet by mouth once daily. GATO: No Date of last office visit in primary care: 05/16/21 next apt 11/07/21 Last 2 Encounter Wt Readings: Date: Wt: 04/08/2021 86.6 kg (191 lb) 03/16/2021 89.5 kg (197 lb 6.4 oz) Previous labs/tests for medication: Not applicable Please advise. Thank you. Sofía Murphy LPN documented in this encounter [facility] 06-10-2010 History of Past i llness Narrative Problem Noted Date Resolved Date Supervision of other normal 06/10/2010 01/19/2011 ADVANCED MATERNAL AGE:MULTIPARA[659.63] 06/10/19 11 01/19/2011 PREV DELIVERY [654.23] 06/10/2010 01/19/2011 Poor growth, affecting management of mother, antepartum condition or complication 06/10/2010 01/19/2011 Mild hyperemesis gravidarum, antepartum 06/10/1901/19/2011 Weakness 03/30/2005 12/09/2015 Hypoglycemia, unspecified 03/30/20052015 documented as of this encounter (statuses as of 09/17/2021) [facility] History of Past illness Narrative* Problem Noted Date Resolved Date Supervision of other normal 06/10/2010 01/19/2011 ADVANCED MATERNAL AGE:MULTIPARA[659.63] 06/10/1901/19/2011 PREV DELIVERY [654.23] 06/10/2010 01/19/2011 Poor growth, affecting management of mother, antepartum condition or complication 06/10/2010 01/19/2011 Mild hyperemesis gravidarum, antepartum 06/10/1901/19/2011 Weakness 03/30/2005 12/09/2015 Hypoglycemia, unspecified 03/30/20052015 documented as of this encounter (statuses as of 10/31/2021) [facility] History of Past illness Narrative* Problem Noted Date Resolved Date Supervision of other normal 06/10/2010 01/19/2011 ADVANCED MATERNAL AGE:MULTIPARA[659.63] 06/10/1901/19/2011 PREV DELIVERY [654.23] 06/10/2010 01/19/2011 Poor growth, affecting management of mother, antepartum condition or complication 06/10/2010 01/19/2011 Mild hyperemesis gravidarum, antepartum 06/10/1901/19/2011 Weakness 03/30/2005 12/09/2015 Hypoglycemia, unspecified 03/30/20052015 documented as of this encounter (statuses as of 11/07/2021) [facility] History of Past illness Narrative* Problem Noted Date Resolved Date Supervision of other normal 06/10/2010 01/19/2011 ADVANCED MATERNAL AGE:MULTIPARA[659.63] 06/10/19 11 01/19/2011 PREV DELIVERY [654.23] 06/10/2010 01/19/2011 Poor growth, affecting management of mother, antepartum condition or complication 06/10/2010 01/19/2011 Mild hyperemesis gravidarum, antepartum 06/10/1901/19/2011 Weakness 03/30/2005 12/09/2015 Hypoglycemia, unspecified 03/30/20052015 documented as of this encounter (statuses as of 01/06/2022) [facility] History of Past illness Narrative* Problem Noted Date Resolved Date Supervision of other normal 06/10/2010 01/19/2011 ADVANCED MATERNAL AGE:MULTIPARA[659.63] 06/10/19 11 01/19/2011 PREV DELIVERY [654.23] 06/10/2010 01/19/2011 Poor growth, affecting management of mother, antepartum condition or complication 06/10/2010 01/19/2011 Mild hyperemesis gravidarum, antepartum 06/10/1901/19/2011 Weakness 03/30/2005 12/09/2015 Hypoglycemia, unspecified 03/30/20052015 documented as of this encounter (statuses as of 02/24/2022) [facility] History of Past illness Narrative* Problem Noted Date Resolved Date Supervision of other normal 06/10/2010 01/19/2011 ADVANCED MATERNAL AGE:MULTIPARA[659.63] 06/10/1901/19/2011 PREV DELIVERY [654.23] 06/10/2010 01/19/2011 Poor growth, affecting management of mother, antepartum condition or complication 06/10/2010 01/19/2011 Mild hyperemesis gravidarum, antepartum 06/10/1901/19/2011 Weakness 03/30/2005 12/09/2015 Hypoglycemia, unspecified 03/30/20052015 documented as of this encounter (statuses as of 04/06/2022) [facility] History of Past illness Narrative* Problem Noted Date Resolved Date Supervision of other normal 06/10/2010 01/19/2011 ADVANCED MATERNAL AGE:MULTIPARA[659.63] 06/10/19 11 01/19/2011 PREV DELIVERY [654.23] 06/10/2010 01/19/2011 Poor growth, affecting management of mother, antepartum condition or complication 06/10/2010 01/19/2011 Mild hyperemesis gravidarum, antepartum 06/10/19 11 01/19/2011 Weakness 03/30/2005 12/09/2015 Hypoglycemia, unspecified 03/30/20052015 documented as of this encounter (statuses as of 04/10/2022) [facility] History of Past illness Narrative* Problem Noted Date Resolved Date Supervision of other normal 06/10/2010 01/19/2011 ADVANCED MATERNAL AGE:MULTIPARA[659.63] 06/10/19 11 01/19/2011 PREV DELIVERY [654.23] 06/10/2010 01/19/2011 Poor growth, affecting management of mother, antepartum condition or complication 06/10/2010 01/19/2011 Mild hyperemesis gravidarum, antepartum 06/10/1901/19/2011 Weakness 03/30/2005 12/09/2015 Hypoglycemia, unspecified 03/30/20052015 documented as of this encounter (statuses as of 04/14/2022) [facility] History of Past illness Narrative* Problem Noted Date Resolved Date Supervision of other normal 06/10/2010 01/19/2011 ADVANCED MATERNAL AGE:MULTIPARA[659.63] 06/10/19 11 01/19/2011 PREV DELIVERY [654.23] 06/10/2010 01/19/2011 Poor growth, affecting management of mother, antepartum condition or complication 06/10/2010 01/19/2011 Mild hyperemesis gravidarum, antepartum 06/10/1901/19/2011 Weakness 03/30/2005 12/09/2015 Hypoglycemia, unspecified 03/30/20052015 documented as of this encounter (statuses as of 04/14/2022) [facility] History of Past illness Narrative* Problem Noted Date Resolved Date Supervision of other normal 06/10/2010 01/19/2011 ADVANCED MATERNAL AGE:MULTIPARA[659.63] 06/10/19 11 01/19/2011 PREV DELIVERY [654.23] 06/10/2010 01/19/2011 Poor growth, affecting management of mother, antepartum condition or complication 06/10/2010 01/19/2011 Mild hyperemesis gravidarum, antepartum 06/10/19 11 01/19/2011 Weakness 03/30/2005 12/09/2015 Hypoglycemia, unspecified 03/30/20052015 documented as of this encounter (statuses as of 04/15/2022) [facility] History of Past illness Narrative* Problem Noted Date Resolved Date Supervision of other normal 06/10/2010 01/19/2011 ADVANCED MATERNAL AGE:MULTIPARA[659.63] 06/10/1901/19/2011 PREV DELIVERY [654.23] 06/10/2010 01/19/2011 Poor growth, affecting management of mother, antepartum condition or complication 06/10/2010 01/19/2011 Mild hyperemesis gravidarum, antepartum 06/10/1901/19/2011 Weakness 03/30/2005 12/09/2015 Hypoglycemia, unspecified 03/30/20052015 documented as of this encounter (statuses as of 04/16/2022) [facility] History of Past illness Narrative* Problem Noted Date Resolved Date Supervision of other normal 06/10/2010 01/19/2011 ADVANCED MATERNAL AGE:MULTIPARA[659.63] 06/10/1901/19/2011 PREV DELIVERY [654.23] 06/10/2010 01/19/2011 Poor growth, affecting management of mother, antepartum condition or complication 06/10/2010 01/19/2011 Mild hyperemesis gravidarum, antepartum 06/10/1901/19/2011 Weakness 03/30/2005 12/09/2015 Hypoglycemia, unspecified 03/30/20052015 documented as of this encounter (statuses as of 06/08/2022) [facility] History of Past illness Narrative* Problem Noted Date Resolved Date Supervision of other normal 06/10/2010 01/19/2011 ADVANCED MATERNAL AGE:MULTIPARA[659.63] 06/10/1901/19/2011 PREV DELIVERY [654.23] 06/10/2010 01/19/2011 Poor growth, affecting management of mother, antepartum condition or complication 06/10/2010 01/19/2011 Mild hyperemesis gravidarum, antepartum 06/10/1901/19/2011 Weakness 03/30/2005 12/09/2015 Hypoglycemia, unspecified 03/30/20052015 documented as of this encounter (statuses as of 07/31/2022) [facility] History of Past illness Narrative* Problem Noted Date Resolved Date Supervision of other normal 06/10/2010 01/19/2011 ADVANCED MATERNAL AGE:MULTIPARA[659.63] 06/10/1901/19/2011 PREV DELIVERY [654.23] 06/10/2010 01/19/2011 Poor growth, affecting management of mother, antepartum condition or complication 06/10/2010 01/19/2011 Mild hyperemesis gravidarum, antepartum 06/10/1901/19/2011 Weakness 03/30/2005 12/09/2015 Hypoglycemia, unspecified 03/30/20052015 documented as of this encounter (statuses as of 08/22/2022) [facility] History of Past illness Narrative* Problem Noted Date Resolved Date Supervision of other normal 06/10/2010 01/19/2011 ADVANCED MATERNAL AGE:MULTIPARA[659.63] 06/10/1901/19/2011 PREV DELIVERY [654.23] 06/10/2010 01/19/2011 Poor growth, affecting management of mother, antepartum condition or complication 06/10/2010 01/19/2011 Mild hyperemesis gravidarum, antepartum 06/10/1901/19/2011 Weakness 03/30/2005 12/09/2015 Hypoglycemia, unspecified 03/30/20052015 documented as of this encounter (statuses as of 10/06/2022) [facility] History of Past illness Narrative* Problem Noted Date Diagnosed Date Resolved Date Supervision of other normal 06/10/2010 01/19/2011 ADVANCED MATERNAL AGE:MULTIPARA[659.63] 06/10/2010 01/19/2011 PREV DELIVERY [654.23] 06/10/2010 01/19/2011 Poor growth, affecting management of mother, antepartum condition or complication 06/10/2010 01/19/2011 Mild hyperemesis gravidarum, antepartum 06/10/2010 01/19/2011 Weakness 03/30/2005 12/09/2015 Hypoglycemia, unspecified 03/30/2005 documented as of this encounter (statuses as of 11/14/2022) [facility] History of Past illness Narrative* Problem Noted Date Diagnosed Date Resolved Date Supervision of other normal 06/10/2010 01/19/2011 ADVANCED MATERNAL AGE:MULTIPARA[659.63] 06/10/2010 01/19/2011 PREV DELIVERY [654.23] 06/10/2010 01/19/2011 Poor growth, affecting management of mother, antepartum condition or complication 06/10/2010 01/19/2011 Mild hyperemesis gravidarum, antepartum 06/10/2010 01/19/2011 Weakness 03/30/2005 12/09/2015 Hypoglycemia, unspecified 03/30/2005 documented as of this encounter (statuses as of 03/13/2023) [facility] History of Past illness Narrative* Problem Noted Date Diagnosed Date Resolved Date Supervision of other normal 06/10/2010 01/19/2011 ADVANCED MATERNAL AGE:MULTIPARA[659.63] 06/10/2010 01/19/2011 PREV DELIVERY [654.23] 06/10/2010 01/19/2011 Poor growth, affecting management of mother, antepartum condition or complication 06/10/2010 01/19/2011 Mild hyperemesis gravidarum, antepartum 06/10/2010 01/19/2011 Weakness 03/30/2005 12/09/2015 Hypoglycemia, unspecified 03/30/2005 documented as of this encounter (statuses as of 03/13/2023) [facility] History of Past illness Narrative* Problem Noted Date Diagnosed Date Resolved Date Supervision of other normal 06/10/2010 01/19/2011 ADVANCED MATERNAL AGE:MULTIPARA[659.63] 06/10/2010 01/19/2011 PREV DELIVERY [654.23] 06/10/2010 01/19/2011 Poor growth, affecting management of mother, antepartum condition or complication 06/10/2010 01/19/2011 Mild hyperemesis gravidarum, antepartum 06/10/2010 01/19/2011 Weakness 03/30/2005 12/09/2015 Hypoglycemia, unspecified 03/30/2005 documented as of this encounter (statuses as of 07/15/2023) [facility] note* Diagnosis Anxiety and depression Dysthymic disorder documented in this encounter [facility] note* Diagnosis Anxiety and depression- Primary Dysthymic disorder Encounter for screening for diabetes mellitus Screening for diabetes mellitus Encounter for screening for lipid disorder Need for hepatitis C screening test Special screening examination for other specified viral diseases documented in this encounter [facility] noteNo assessment information availableWSt. [facility] Work Phone: Evaluation note* Diagnosis Encounter for gynecological examination (general) (routine) without abnormal findings- Primary Screening for cervical cancer Screening for malignant neoplasm of the cervix Encounter for screening for human papillomavirus (HPV) Special screening examination for human papillomavirus (HPV) Encounter for screening mammogram for breast cancer [facility] Diagnosis Syncope, unspecified syncope type- Primary Seizure (HCC) Other convulsions Prolonged Q-T interval on ECG Nonspecific abnormal electrocardiogram (ECG) (EKG) Anxiety and depression Dysthymic disorder Need for influenza vaccination Need for prophylactic vaccination and inoculation against influenza Acute pain of both shoulders [facility] Diagnosis Loss of consciousness (HCC)- Primary Other alteration of consciousness [facility] Diagnosis Vasovagal syncope- Primary Syncope and collapse Abnormal electrocardiogram Nonspecific abnormal electrocardiogram (ECG) (EKG) [facility] Diagnosis Abnormal mammogram- Primary Abnormal mammogram, unspecified [facility] Diagnosis Anxiety and depression Dysthymic disorder documented [facility] encounter [facility]* Diagnosis Anxiety and depression- Primary Dysthymic disorder Prolonged Q-T interval on ECG Nonspecific abnormal electrocardiogram (ECG) (EKG) Lipid screening Screening for lipoid disorders Rotator cuff syndrome of left shoulder Disorders of bursae and tendons in shoulder region, unspecified Encounter for immunization Need for other specified prophylactic vaccination against single bacterial disease Special screening for malignant neoplasms, colon Encounter for long-term current use of medication [facility] Diagnosis Anxiety and depression Dysthymic disorder documented [facility]* Diagnosis Follow-up examination of abnormal mammogram Abnormal mammogram, unspecified documented [facility] encounter [facility]* Diagnosis Abnormal mammogram Abnormal mammogram, unspecified documented [facility] Diagnosis Encounter for screening mammogram for breast cancer documented in this [facility] Diagnosis Routine medical exam- Primary Routine general medical examination at a health care facility Anxiety and depression Dysthymic disorder Special screening for malignant neoplasms, colon documented in this [facility] Diagnosis Anxiety and depression Dysthymic disorder documented in this [facility] Diagnosis Anxiety and depression- Primary Dysthymic disorder Spasm of back muscles Other symptoms referable to back Dense breasts Inconclusive mammogram Encounter for screening mammogram for breast cancer documented [facility] this [facility] Diagnosis Encounter for gynecological examination (general) (routine) without abnormal findings- Primary Encounter for screening mammogram for breast cancer documented [facility] this [facility] Diagnosis Encounter for screening mammogram for breast cancer Dense breasts Inconclusive mammogram documented in this [facility] Diagnosis Anxiety and depression Dysthymic disorder documented in this [facility] Diagnosis Routine medical exam- Primary Routine general medical examination at a health care facility Anxiety and depression Dysthymic disorder Screening for colon cancer Special screening for malignant neoplasms, colon Encounter for long-term current use of medication Low HDL (under 40) Lipoprotein deficiencies documented in this [facility] Diagnosis Anxiety and depression- Primary Dysthymic disorder Motion sickness, sequela Encounter for immunization Need for other specified prophylactic vaccination against single bacterial disease documented in this encounter [facility] for referral (narrative)* Diagnostic Procedure Only (Routine) - Authorized Specialty Diagnoses / Procedures Referred By Rafael jackson Referred To Contact [facility] Diagnoses Encounter for screening mammogram for breast cancer Procedures DANY SCREENING W MEHUL SCREENING DIGITAL BREAST TOMOSYNTHESIS BI SCREENING MAMMOGRAPHY BI 2-VIEW BREAST INC Patricia Persaud, RACHNA.FUR DYER [address] [place] [address] [facility] [address] [place] [address] Referral ID Status Reason Start Date Expiration Date Visits Requested Visits Authorized [id number] Authorized Auto-Generat ed Referral 2 03/26/2023 1 1 [facility] for referral (narrative)* Diagnostic Procedure Only (Routine) - Pending Review Specialty Diagnoses / Procedures Referred By Contac t Referred To Contact XR IMAGING Diagnoses Acute pain of both shoulders Procedures XR SHOULDER GENERAL 3V OR MORE AP/TRUE AP/OTHER RIGHT RADEX SHOULDER COMPLETE MINIMUM 2 VIEWS Renuka Morgan APRN.TRUCK ENGINE ASSEMBLER [address] [place] [address] Xr Imaging Referral ID Status Reason Start Date Expiration Date Visits Requested Visits Authorized [id number] Pending Review Auto-Generat ed Referral 2 05/06/2023 1 1 * Diagnostic Procedure Only (Routine) - Pending Review Specialty Diagnoses / Procedures Referred By Contac t Referred To Contact XR IMAGING Diagnoses Acute pain of both shoulders Procedures XR SHOULDER GENERAL 3V OR MORE AP/TRUE AP/OTHER LEFT RADEX SHOULDER COMPLETE MINIMUM 2 VIEWS Renuka Morgan APRN.TRUCK ENGINE ASSEMBLER [address] [place] [address] Xr Imaging Referral ID Status Reason Start Date Expiration Date Visits Requested Visits Authorized [id number] Pending Review Auto-Generat ed Referral 2 05/06/2023 1 1 * Outpatient Procedure (Routine) - Authorized Specialty Diagnoses / Procedures Referred By Contac t Referred To [facility] Diagnoses Syncope, unspecified syncope type Procedures ECHO ECHO TTHRC R-T 2D W/WOM-MODE COMPL SPEC&COLR D Renuka Morgan APRN.TRUCK ENGINE ASSEMBLER [address] [place] [address] [facility] [address] [address] Referral ID Status Reason Start Date Expiration Date Visits Requested Visits Authorized [id number] Authorized Auto-Generat ed Referral 04/06/2023 1 1 [facility] for referral (narrative)* Outpatient Procedure (Routine) - Authorized Specialty Diagnoses / Procedures Referred By Contac t Referred To Contact [facility] Diagnoses Loss of consciousness (HCC) Procedures EPIL EEG ROUTINE ELECTROENCEPHALOGRAM REC COMA/SLEEP ONLY Ana Laura Lucas PA-C [address] [place] [address] [facility] [place] [id number] Referral ID Status Reason Start Date Expiration Date Visits Requested Visits Authorized [id number] Authorized Auto-Generat ed Referral 04/10/2022 04/10/2023 1 1 [facility] Outpatient Procedure (Routine) - Closed Specialty Diagnoses / Procedures [facility]erred To Contact [facility] [place] Diagnoses Syncope and collapse Procedures ECG COMPLETE ECG ROUTINE ECG W/LEAST 12 LDS W/I&R John Washington DO [address] [place] [address] [facility] [place] [phone] Referral ID Status Reason Start Date Expiration Date V isits Requested Visits Authorized [id number] Closed Auto-Generate d Referral 04/14/2022 04/14/2023 1 1 [facility] for referral (narrative)* Diagnostic Procedure Only (Routine) - Pending Review Specialty Diagnoses / Procedures Referred By Contac t Referred To Contact [facility] Diagnoses Abnormal mammogram Procedures DANY DIAGNOSTIC BILAT DIAGNOSTIC MAMMOGRAPHY COMPUTER-AIDED DETCJ Patricia Orlando APRN.FUR DYER [address] [facility] [place] [address] [facility] [address] [place] [address] Referral ID Status Reason Start Date Expiration Date Visits Requested Visits Authorized [id number] Pending Review Auto-Generat ed Referral 04/14/2022 05/14/2023 1 1 * Diagnostic Procedure Only (Routine) - Pending Review Specialty Diagnoses / Procedures Referred By Contac t Referred To Contact [facility] Diagnoses Abnormal mammogram Procedures US BREAST LTD LT US BREAST UNI REAL TIME WITH IMAGE LIMITED Patricia Longoria APRN.CNP [address] [facility] [place] [address] [facility] [address] [place] [address] Referral ID Status Reason Start Date Expiration Date Visits Requested Visits Authorized [id number] Pending Review Auto-Generat ed Referral 04/14/2022 05/14/2023 1 1 * Diagnostic Procedure Only (Routine) - Pending Review Specialty Diagnoses / Procedures Referred By Contac t Referred To Contact [facility] Diagnoses Abnormal mammogram Procedures US BREAST LTD RT US BREAST UNI REAL TIME WITH IMAGE LIMITED Patricia Longoria APRN.CNP [address] [facility] [place] [address] [facility] [address] [place] [address] Referral ID Status Reason Start Date Expiration Date Visits Requested Visits Authorized [id number] Pending Review Auto-Generat ed Referral 04/14/2022 05/14/2023 1 1 [facility] Outpatient Procedure (Routine) - Pending Review Specialty Diagnoses / Procedures Referred By Contac t Referred To Contact [facility] Diagnoses Special screening for malignant neoplasms, colon Procedures COLONOSCOPY SCREENING COLONOSCOPY FLX DX W/COLLJ SPEC WHEN PFRMD Agustina Kay MD [address] [place] [address] [facility] [address] [place] [address] Referral ID Status Reason Start Date Expiration Date Visits Requested Visits Authorized [id number] Pending Review Auto-Generat ed Referral 07/01/2022 07/01/2023 1 1 [facility] for referral (narrative)* Diagnostic Procedure Only (Routine) - Closed Specialty Diagnoses / Procedures Referred By Contac t Referred To Contact [facility] Diagnoses Abnormal mammogram Procedures DANY DIAGNOSTIC BILAT DIAGNOSTIC MAMMOGRAPHY COMPUTER-AIDED DETCJ BI Patricia Longoria APRN.FUR DYER [address] [place] [address] [facility] [address] [place] [address] Referral ID Status Reason Start Date Expiration Date V isits Requested Visits Authorized [id number] Closed Auto-Generate d Referral 04/14/2022 05/14/2023 1 1 [facility] for referral (narrative)* Diagnostic Procedure Only (Routine) - Closed Specialty Diagnoses / Procedures Referred By Contjohnny t Referred To Contact [facility] Diagnoses Encounter for screening mammogram for breast cancer Procedures DANY SCREENING W MEHUL SCREENING DIGITAL BREAST TOMOSYNTHESIS BI SCREENING MAMMOGRAPHY BI 2-VIEW BREAST INC CAD Patricia Longoria APRN.FUR DYER [address] [place] [address] [facility] [address] [place] [address] Referral ID Status Reason Start Date Expiration Date V isits Requested Visits Authorized [id number] Closed Auto-Generate d Referral 02/24/2022 03/26/2023 1 1 [facility] for referral (narrative)* Outpatient Procedure (Routine) - Pending Review Specialty Diagnoses / Procedures Referred By Rafael jackson Referred To Contact [facility] Diagnoses Special screening for malignant neoplasms, colon Procedures COLONOSCOPY SCREENING COLONOSCOPY FLX DX W/COLLJ SPEC WHEN Agustina Luis MD [address] [place] [address] [facility] [address] [place] [address] Referral ID Status Reason Start Date Expiration Date Visits Requested Visits Authorized [id number] Pending Review Auto-Generat ed Referral 07/14/2023 07/13/2024 1 1 [facility] for referral (narrative)* Diagnostic Procedure Only (Routine) - Authorized Specialty Diagnoses / Procedures Referred By Rafael jackson Referred To Contact [facility] Diagnoses Encounter for screening mammogram for breast cancer Dense breasts Procedures DANY SCREENING W MEHUL SCREENING DIGITAL BREAST TOMOSYNTHESIS BI SCREENING MAMMOGRAPHY BI 2-VIEW BREAST INC CAD Agustina Kay MD [address] [place] [address] [facility] [address] [place] [address] Referral ID Status Reason Start Date Expiration Date Visits Requested Visits Authorized [id number] Authorized Auto-Generat ed Referral 01/03/2024 02/01/2025 1 1 T [facility] for referral (narrative)* Diagnostic Procedure Only (Routine) - Authorized Specialty Diagnoses / Procedures Referred By Rafael t Referred To Contact [facility] Diagnoses Encounter for screening mammogram for breast cancer Procedures DANY SCREENING W MEHUL SCREENING DIGITAL BREAST TOMOSYNTHESIS BI SCREENING MAMMOGRAPHY BI 2-VIEW BREAST INC Ermias Abrams MD [address] [place] [address] [facility] [address] [place] [address] Referral ID Status Reason Start Date Expiration Date Visits Requested Visits Authorized [id number] Authorized Auto-Generat ed Referral 01/27/2024 02/25/2025 1 1 [facility] for visit Narrative* Diagnostic Procedure Only (Routine) - Closed Specialty Diagnoses / Procedures Referred By Rafael t Referred To Contact [facility] Diagnoses Follow-up examination of abnormal mammogram Procedures DANY DIAGNOSTIC BILAT DIAGNOSTIC MAMMOGRAPHY COMPUTER-AIDED DETCJ [facility] CenterSwatiPatricia, PRODUCT ACCOUNTANT.FUR DYER [address] [place] [address] [facility] [address] [place] [address] Referral ID Status Reason Start Date Expiration Date V isits Requested Visits Authorized [id number] Closed Auto-Generate d Referral 06/11/2022 07/11/2023 1 1 [facility] for visit Narrative* Diagnostic Procedure Only (Routine) - Closed Specialty Diagnoses / Procedures Referred By Rafael jackson Referred To Contact [facility] Diagnoses Abnormal mammogram Procedures DANY DIAGNOSTIC BILAT DIAGNOSTIC MAMMOGRAPHY COMPUTER-AIDED DETCJ [facility] CenterSwatiPatricia, PRODUCT ACCOUNTANT.FUR DYER [address] [place] [address] [facility] [address] [place] [address] Referral ID Status Reason Start Date Expiration Date V isits Requested Visits Authorized [id number] Closed Auto-Generate d Referral 04/14/2022 05/14/2023 1 1 [facility] for visit Narrative* Diagnostic Procedure Only (Routine) - Closed Specialty Diagnoses / Procedures Referred By Rafael jackson Referred To Contact [facility] Diagnoses Encounter for screening mammogram for breast cancer Procedures DANY SCREENING W MEHUL SCREENING DIGITAL BREAST TOMOSYNTHESIS BI SCREENING MAMMOGRAPHY BI 2-VIEW BREAST INC CAD SwatiPatricia, PRODUCT ACCOUNTANT.FUR DYER [address] [place] [address] [facility] [address] [place] [address] Referral ID Status Reason Start Date Expiration Date V isits Requested Visits Authorized [id number] Closed Auto-Generate d Referral 02/24/2022 03/26/2023 1 1 [facility] for visit Narrative* Diagnostic Procedure Only (Routine) - Closed Specialty Diagnoses / Procedures Referred By Rafael t Referred To Contact [facility] Diagnoses Encounter for screening mammogram for breast cancer Dense breasts Procedures DANY SCREENING W MEHUL SCREENING DIGITAL BREAST TOMOSYNTHESIS BI SCREENING MAMMOGRAPHY BI 2-VIEW BREAST INC Agustina Caceres MD [address] [place] [address] [facility] [address] [place] [address] Referral ID Status Reason Start Date Expiration Date V isits Requested Visits Authorized [id number] Closed Auto-Generate d Referral 01/03/2024 02/01/2025 1 1 [facility] Concerns Infection Onset Date Last Indicated Resolved Time COVID-19 Confirmed 10/29/2021 10/29/2021 Summary Purpose Family History No Family History Records FoundNo Family History Records FoundNo Family History Records Found Advance Directives No Advanced Directives Records FoundNo Advanced Directives Records FoundNo Advanced Directives Records Found Additional Source Comments Source Comments (unrecognize d section and content) In the event this informatio n is protected by the Federal Confidentiality of Alcohol and Drug Abuse Patient Records regulations: The Federal rules restrict any use of the information to criminally investigate or prosecute any alcohol or drug abuse patient.[facility] the event this information is protected by the Federal Confidentiality of Alcohol and Drug Abuse Patient Records regulations: The Federal rules restrict any use of the information to criminally investigate or prosecute any alcohol or drug abuse patient.[facility] the event this information is protected by the Federal Confidentiality of Alcohol and Drug Abuse Patient Records regulations: The Federal rules restrict any use of the information to criminally investigate or prosecute any alcohol or drug abuse patient.[facility] the event this information is protected by the Federal Confidentiality of Alcohol and Drug Abuse Patient Records regulations: The Federal rules restrict any use of the information to criminally investigate or prosecute any alcohol or drug abuse patient.[facility] the event this information is protected by the Federal Confidentiality of Alcohol and Drug Abuse Patient Records regulations: The Federal rules restrict any use of the information to criminally investigate or prosecute any alcohol or drug abuse patient.[facility] the event this information is protected by the Federal Confidentiality of Alcohol and Drug Abuse Patient Records regulations: The Federal rules restrict any use of the information to criminally investigate or prosecute any alcohol or drug abuse patient.[facility] the event this information is protected by the Federal Confidentiality of Alcohol and Drug Abuse Patient Records regulations: The Federal rules restrict any use of the information to criminally investigate or prosecute any alcohol or drug abuse patient.[facility] the event this information is protected by the Federal Confidentiality of Alcohol and Drug Abuse Patient Records regulations: The Federal rules restrict any use of the information to criminally investigate or prosecute any alcohol or drug abuse patient.[facility] the event this information is protected by the Federal Confidentiality of Alcohol and Drug Abuse Patient Records regulations: The Federal rules restrict any use of the information to criminally investigate or prosecute any alcohol or drug abuse patient.[facility] the event this information is protected by the Federal Confidentiality of Alcohol and Drug Abuse Patient Records regulations: The Federal rules restrict any use of the information to criminally investigate or prosecute any alcohol or drug abuse patient.[facility] the event this information is protected by the Federal Confidentiality of Alcohol and Drug Abuse Patient Records regulations: The Federal rules restrict any use of the information to criminally investigate or prosecute any alcohol or drug abuse patient.[facility] the event this information is protected by the Federal Confidentiality of Alcohol and Drug Abuse Patient Records regulations: The Federal rules restrict any use of the information to criminally investigate or prosecute any alcohol or drug abuse patient.[facility] the event this information is protected by the Federal Confidentiality of Alcohol and Drug Abuse Patient Records regulations: The Federal rules restrict any use of the information to criminally investigate or prosecute any alcohol or drug abuse patient.[facility] the event this information is protected by the Federal Confidentiality of Alcohol and Drug Abuse Patient Records regulations: The Federal rules restrict any use of the information to criminally investigate or prosecute any alcohol or drug abuse patient.[facility] the event this information is protected by the Federal Confidentiality of Alcohol and Drug Abuse Patient Records regulations: The Federal rules restrict any use of the information to criminally investigate or prosecute any alcohol or drug abuse patient.[facility] the event this information is protected by the Federal Confidentiality of Alcohol and Drug Abuse Patient Records regulations: The Federal rules restrict any use of the information to criminally investigate or prosecute any alcohol or drug abuse patient.[facility] the event this information is protected by the Federal Confidentiality of Alcohol and Drug Abuse Patient Records regulations: The Federal rules restrict any use of the information to criminally investigate or prosecute any alcohol or drug abuse patient.[facility] the event this information is protected by the Federal Confidentiality of Alcohol and Drug Abuse Patient Records regulations: The Federal rules restrict any use of the information to criminally investigate or prosecute any alcohol or drug abuse patient.[facility] the event this information is protected by the Federal Confidentiality of Alcohol and Drug Abuse Patient Records regulations: The Federal rules restrict any use of the information to criminally investigate or prosecute any alcohol or drug abuse patient.[facility] the event this information is protected by the Federal Confidentiality of Alcohol and Drug Abuse Patient Records regulations: The Federal rules restrict any use of the information to criminally investigate or prosecute any alcohol or drug abuse patient.[facility] the event this information is protected by the Federal Confidentiality of Alcohol and Drug Abuse Patient Records regulations: The Federal rules restrict any use of the information to criminally investigate or prosecute any alcohol or drug abuse patient.[facility] the event this information is protected by the Federal Confidentiality of Alcohol and Drug Abuse Patient Records regulations: The Federal rules restrict any use of the information to criminally investigate or prosecute any alcohol or drug abuse patient.[facility] the event this information is protected by the Federal Confidentiality of Alcohol and Drug Abuse Patient Records regulations: The Federal rules restrict any use of the information to criminally investigate or prosecute any alcohol or drug abuse patient.[facility] the event this information is protected by the Federal Confidentiality of Alcohol and Drug Abuse Patient Records regulations: The Federal rules restrict any use of the information to criminally investigate or prosecute any alcohol or drug abuse patient.[facility] the event this information is protected by the Federal Confidentiality of Alcohol and Drug Abuse Patient Records regulations: The Federal rules restrict any use of the information to criminally investigate or prosecute any alcohol or drug abuse patient.[facility] the event this information is protected by the Federal Confidentiality of Alcohol and Drug Abuse Patient Records regulations: The Federal rules restrict any use of the information to criminally investigate or prosecute any alcohol or drug abuse patient.[facility] the event this information is protected by the Federal Confidentiality of Alcohol and Drug Abuse Patient Records regulations: The Federal rules restrict any use of the information to criminally investigate or prosecute any alcohol or drug abuse patient.[facility] the event this information is protected by the Federal Confidentiality of Alcohol and Drug Abuse Patient Records regulations: The Federal rules restrict any use of the information to criminally investigate or prosecute any alcohol or drug abuse patient.[facility] Dublin[facility] the event this information is protected by the Federal Confidentiality of Alcohol and Drug Abuse Patient Records regulations: The Federal rules restrict any use of the information to criminally investigate or prosecute any alcohol or drug abuse patient.[facility] Dublin[facility] the event this information is protected by the Federal Confidentiality of Alcohol and Drug Abuse Patient Records regulations: The Federal rules restrict any use of the information to criminally investigate or prosecute any alcohol or drug abuse patient.[facility] Reason for Visit (unrecogniz ed section and content) Reason Onset Date Comments Refill Request 09/16/2021 Reason Comments Patient Question Appointment Reason Comments Follow Up Reason Onset Date Comments Refill Request 01/04/2022 Reason Comments Well Woman Reason Onset Date Comments Hospital F/U Immunizations 04/06/2022 Flu vaccination Reason Comments ER F/U Seizures Reason Comments CARD New Patient Consult 04/03 - in stor e and had an episode where she does not remember much but she had twitching of all 4 extremities per bystanders report to EMS. Went to [facility] [place] [facility] [place]. ER felt unknown whether syncope or seizure. ER felt most likely a vagal episode.Last syncopal episode was around age 18 at [place]. Told to follow up Neuro and Cardio (possible long QT interval) and no driving until seen by Neuro.Neuro appt 04/10/22 - Dx: vagal episode / cleared to driveECHO 04/10/22 Reason Comments Orders Reason Comments Mammogram Result Call Back Reason Onset Date Comments Refill Request 06/07/2022 Reason Comments Follow Up Reason Comments Patient Question Reason Onset Date Comments Refill Request 10/01/2022 Reason Comments Yearly Exam Reason Onset Date Comments Refill Request 10/21/2023 Reason Comments F/U 6 months Reason Onset Date Comments Refill Request 04/02/2024 Reason Onset Date Comments Refill Request 05/17/2024 Reason Comments F/U 6 Month Care Teams (unrecognized sec tion and content) Rover Tender Relationship Specialty Start Date End Date Agustina Kay MD [address] [place] [address] PCP - General Internal Medicine 05/25/16 Rover Tender Relationship Specialty Start Date End Date Agustina Kay MD [facility] [place] [address] PCP - General Internal Medicine 05/25/16 Rover Tender Relationship Specialty Start Date End Date Agustina Kay MD [facility] [place] [address] PCP - General Internal Medicine 05/25/16 Rover Tender Relationship Specialty Start Date End Date Agustina Kay MD [address] [place] [address], [place] [address] PCP - General Internal Medicine 05/25/16 Rover Tender Relationship Specialty Start Date End Date Agustina Kay MD [address] [place] [address], [place] [address] PCP - General Internal Medicine 05/25/16 Rover Tender Relationship Specialty Start Date End Date Agustina Kay MD [address] [place] [address], [place] [address] PCP - General Internal Medicine 05/25/16 Rover Tender Relationship Specialty Start Date End Date Agustina Kay MD [address] [place] [address], [place] [address] PCP - General Internal Medicine 05/25/16 Rover Tender Relationship Specialty Start Date End Date Agustina Kay MD [address] [place] [address], [place] [address] PCP - General Internal Medicine 05/25/16 Rover Tender Relationship Specialty Start Date End Date Agustina Kay MD [address] [place] [address], [place] [address] PCP - General Internal Medicine 05/25/16 Rover Tender Relationship Specialty Start Date End Date Agustina Kay MD [address] [place] [address], [place] [address] PCP - General Internal Medicine 05/25/16 Rover Tender Relationship Specialty Start Date End Date Agustina Kay MD [address] [facility] [place] [address] PCP - General Internal Medicine 05/25/16 Rover Tender Relationship Specialty Start Date End Date Agustina Kay MD [address] [facility] [place] [address] PCP - General Internal Medicine 05/25/16 Rover Tender Relationship Specialty Start Date End Date Agustina Kay MD [address] [place] [address] PCP - General Internal Medicine 05/25/16 Rover Tender Relationship Specialty Start Date End Date Agustina Kay MD [address] [place] [address] PCP - General Internal Medicine 05/25/16 Rover Tender Relationship Specialty Start Date End Date Agustina Kay MD [address] [place] [address] PCP - General Internal Medicine 05/25/16 Rover Tender Relationship Specialty Start Date End Date Agustina Kay MD [address] [facility] [place] [address] PCP - General Internal Medicine 05/25/16 Rover Tender Relationship Specialty Start Date End Date Agustina Kay MD [address] [facility] [place] [address] PCP - General Internal Medicine 05/25/16 Rover Tender Relationship Specialty Start Date End Date Agustina Kay MD [address] [place] [address] PCP - General Internal Medicine 05/25/16 Rover Tender Relationship Specialty Start Date End Date Agustina Kay MD [address] [facility] [place] [address] PCP - General Internal Medicine 05/25/16 Rover Tender Relationship Specialty Start Date End Date Agustina Kay MD [address] [facility] [place] [address] PCP - General Internal Medicine 05/25/16 Rover Tender Relationship Specialty Start Date End Date Agustina Kay MD [address] [facility] [place] [address] PCP - General Internal Medicine 05/25/16 Rover Tender Relationship Specialty Start Date End Date Agustina Kay MD [address] [facility] [place] [address] PCP - General Internal Medicine 05/25/16 Rover Tender Relationship Specialty Start Date End Date Agustina Kay MD [address] [facility] [place] [address] PCP - General Internal Medicine 05/25/16 Rover Tender Relationship Specialty Start Date End Date Agustina Kay MD [address] [facility] [place] [address] PCP - General Internal Medicine 05/25/16 Renuka Morgan APRN.TRUCK ENGINE ASSEMBLER [address] [facility] [place] [address] Registrar Internal Medicine 04/17/24 Mayra Carey APRN.FUR DYER [address] [place] [address] Registrar Internal Medicine 04/17/24 Rover Tender Relationship Specialty Start Date End Date Agustina Kay MD [address] [place], [place] [address] PCP - General Internal Medicine 05/25/16 Renuka Morgan APRN.TRUCK ENGINE ASSEMBLER [address] [place] [address] Registrar Internal Medicine 04/17/24 Mayra Carey APRN.FUR DYER [address] [place] [address] Registrar Internal Medicine 04/17/24 07/28/24 Rover Tender Relationship Specialty Start Date End Date Agustina Kay MD [address] [place] [address] PCP - General Internal Medicine 05/25/16 Mayra Carey APRN.FUR DYER [address] [place] [address] Registrar Internal Medicine 08/01/24 Renuka Morgan APRN.TRUCK ENGINE ASSEMBLER [address] [place] [address] [facility] Internal Medicine 09/27/24 Goals (unrecognized section and content) Goals may be documented in a n alternate section INFORMATION SOURCE (unrecogn ized section and content) DATE CREATED AUTHOR 04/04/2022 [facility] DATE CREATED AUTHOR AUTHOR'S ORGANIZ ATION 03/08/2025 [facility] DATE CREATED AUTHOR AUTHOR'S ORGANIZ ATION 03/08/2025 [facility] FOR RECORDS PERTAINING TO PATIENTS WHO ARE OR HAVE BEEN ENROLLED IN A CHEMICAL DEPENDENCY/SUBSTANCEABUSE PROGRAM, SOME INFORMATION MAY BE OMITTED. This clinical summary was aggregated from multiple sources. Caution should be exercised in using it in the provision of clinical care. This summary normalizes information from multiple sources, and as a consequence, information in this document may materially change the coding, format and clinical context of patient data. In addition, data may be omitted in some cases. CLINICAL DECISIONS SHOULD BE BASED ON THE PRIMARY CLINICAL RECORDS. [facility], [facility]. provides no warranty or guarantee of the accuracy or completeness of information in this document.
--- NOTE | 2025-03-09 06:48 | PCM.PRE.AN2 ---
ASA Classification* ASA Classification ASA Classification: 2 Assessment & Plan Anesthesia* Anesthesia Assessment Anesthesia Assessment: Discussed sedation and/or anesthesia options, risks, benefits, and alternatives with patient/parents/legal guardian/POA. Questions invited. The patient/parents/legal guardian/POA seems to understand and agrees to proceed with anesthesia plan. Reviewed the physical assessment, medical history, allergy history and patient home medications list prior to surgery/procedure/anesthetic and documented any changes. Performed airway and anesthesia risk assessments. 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 When Was Last Pacemaker Check QUESTION #4 FULL TEXT: You/Your Family Experience fever (hyperthermia) with Anesthesia Last Oral Intake Last Oral intake: Last Oral Intake NPO since Meds taken in AM with sips of water? Meds patient instructed to take am of surgery PONV PONV - vegetable sorter: PONV - vegetable sorter Female Yes 02/28/25 08:30 HX of Motion Sickness Yes 02/28/25 08:30 HX of N/V After Surgery No 02/28/25 08:30 Non-Smoker Yes 02/28/25 08:30 Duration of Surgery greater No 02/28/25 08:30 than 60 minutes Number of Risk Factors 3 02/28/25 08:30 PONV Score Moderate Risk 02/28/25 08:30 Respiratory Assessment Respiratory Assessment - vegetable sorter: Respiratory Tract Infection Hx - vegetable sorter Hx Respiratory Tract Infection No 02/28/25 08:30 STOP Sleep Apnea STOP Sleep Apnea - vegetable sorter: STOP Sleep Apnea - vegetable sorter Hx Hypertension No 02/28/25 08:30 Hx Sleep Apnea No 02/28/25 08:30 CPAP BIPAP Do you snore loudly (louder No 02/28/25 08:30 than talking or can be heard Do you often feel tired/ No 02/28/25 08:30 fatigued/ sleepy during daytime? Has anyone observed you stop No 02/28/25 08:30 breathing during sleep? STOP Results Negative 02/28/25 08:30 QUESTION #5 FULL TEXT : Do you snore loudly (louder than talking or can be heard through closed doors)? 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 Specify any problems Hx of Preganancy in last 3 No 02/28/25 08:30 Months Nurse Filling Out Transfusion DSCHRIBER 02/28/25 08:30 & Questions: Date: 02/28/25 02/28/25 08:30 Time: 08:31 02/28/25 08:30 Patient unable to answer at this time (ie. confused, unrespo /Reproduction History /Reproductive History - vegetable sorter: /Reproductive Hx- vegetable sorter Hx Now No 02/28/25 08:30 Gestational Age (in weeks): EDC: Hx Hx Para Hx Section SAB No 02/28/25 08:30 Active Medications Active Medications: Current Medications Generic Name Dose Route Start Last Admin Trade Name Freq PRN Reason Stop Dose Admin Lactated Ringer's 1,000 mls @ 15 mls/hr 03/09/25 06:45 IV .Q48H LISA PFSH Medical History Hx of echocardiogram Fear of needles Depression Anxiety Back pain Loss of consciousness Syncope Non-smoker Cardiology follow-up encounter Home Medications Medication Instructions Recorded Last Taken Type sertraline 100 mg tablet 100 mg PO QHS 02/28/25 Unknown History Allergy/AdvReac Type Severity Reaction Status Date / Time prochlorperazine (From AdvReac Intermediate Other Verified 02/28/25 08:27 Compazine) tramadol (From Ultram) AdvReac Intermediate Nausea/Vom/ Verified 02/28/25 08:27 Diarrhea Surgical History Hx of tonsillectomy Hx laparoscopic cholecystectomy History of Social History Smoking Status: Never smoker Review of Systems (Anesthesia) ROS Narrative System reviewed and no additional complaints, except as documented.
[2025-03-09 07:18] LABS: Hematocrit 39.4 % (37-47); Hemoglobin 13.3 g/dL (12.0-15.0); Mean Corp Hgb Conc 33.8 g/dL (32-36); Mean Corpuscular Volume 86.4 fL (81-99); Mean Platelet Vol. 10.5 fl (6.2-12.0); Platelet Count 174 K/mm3 (150-450); RBC Distribution Width CV 13.1 % (11.6-14.6); RBC Distribution Width SD 40.6 fl (35.1-43.9); Red Blood Count 4.56 M/mm3 (4.2-5.4); White Blood Count 4.9 K/mm3 (4.4-11.0)
[2025-03-09 07:18] LABS: Internal QC Validated? YES +Cl - CLEAR BKGD; Pregnancy, Urine Negative Negative
[2025-03-09 07:19] LABS: Record Kit Lot#,Urine Preg 980607
[2025-03-09] MEDS: Lactated Ringers 1,000 ML 15 ML IV (07:37)
[2025-03-09] MEDS: Midazolam 2 MG/2 ML Syringe IV (07:53)
[2025-03-09] MEDS: Lidocaine 1% (5 ml sdv) 5 ML Vial 8 ML IV (07:58)
--- NOTE | 2025-03-09 08:00 | EMB_PTH ---
PATIENT: MIKHAIL BRITO LOC: [facility] [place] U#:[id number] AGE/SX: 54/F ROOM: RE03/09/[address]: Dr. Smitha Bettencourt DO : 1970 BED: DIS: 03/09/2025 SPEC #: [id number] RECD: 03/09/25 08:54 STATUS: PAMELA REQ #: [id number] [place]: 03/09/25 08:[address]: Smitha Bettencourt DEPT: SURGICAL PATHOLOGY RECD BY: Pito Mckeon ENTERED: 03/09/25 10:45 SP TYPE: ENDOM BX/C OTHR DR: Dr. Erika Zavala MD Tissues: A - Endometrium, NOS Procedures: Surgery Specimen Level IV HEADER OPERATION: Hysteroscopy, D&C PRE-OP DIAGNOSIS: Dysfunctional uterine bleeding TISSUE SUBMITTED: A- Endometrial curettings MICROSCOPIC DIAGNOSIS A. Endometrium, curettage: - Secretory endometrium. - Benign endocervical mucosal polyp. MICROSCOPIC DESCRIPTION Slides are reviewed. GROSS DESCRIPTION A. Received in formalin labeled with the patient's name and date of . Designated as " endometrial curettings" is a 2.8 x 2.0 x 0.3 cm aggregate of pink-red tissue fragments, clotted blood and mucoid material. Entirely submitted in 1 cassette. AK 03/09/2025 CPT:64433
[2025-03-09] MEDS: Lidocaine 1% /Epi 1:100 (20ml) 20 ML Vial (08:10)
[2025-03-09] MEDS: Ketorolac 30 MG/ML Syringe IV (08:26)
--- NOTE | 2025-03-09 08:27 | DCINST_ITS ---
Discharge Instructions DC O2, CPAP, BIPAP needs Home O2 Discharge instructions: No Dressing / Incision Discharge Activity: May Drive (once you are more than 24 hours out from the procedure) and May Shower (once you are more than 24 hours out from the procedure) May resume sexual activity in: 1 week (nothing in the vagina) Weight Bearing Status: Weight bearing as tolerated Lifting Restrictions: none Dressing / Incision Call your doctor if you observe: Fever of 101 or Higher, Inability to urinate, Inability to have a bowel movement, Using more than 1 pad per hour, Shortness of breath, Dizziness, Swelling in the ankles, Chest pain, Calf discomfort and Uncontrolled pain Cleanse incision/area with: Soap & Water Follow Up Care Please Follow Up With: Smitha Bettencourt DO When: 1 week post op Test Results: Test results from this visit will be discussed in further detail at your follow- up appointment, if applicable. There was 1 small possible polyp on the back of the uterus that was removed. Otherwise the uterus looked normal. We did a D&C. We will get the pathology results in 1-2 weeks. Discharge Plan Admission Primary Reason for Your Visit: surgery Attending Provider: Smitha Bettencourt Primary Care Provider: Erika Zavala Instructions Patient Instructions: Dilation and Curettage Print Language: Belarusian Discharge Orders/Prescriptions Prescriptions: Continued sertraline 100 mg tablet 100 mg PO QHS Disposition Disposition (needs filled in before D/C Order can be placed): Home, Self Care
--- NOTE | 2025-03-09 08:29 | PCM.OPRPT ---
Operative Report (Standard) Operative Information Date of Procedure: 03/09/25 Pre-Operative Diagnosis: Endometrial polyp, menorrhagia Post-Operative Diagnosis: As above Surgery/Procedure Performed: Hysteroscopy D&C moisture machine tender: No Type of Anesthesia: MAC RN Documented Start/Stop Times: Operation Date: 03/09/25 08:00 Case Time Into Pre-Op 03/09/25 06:39 Out of Pre-Op 03/09/25 07:51 Anesthesia Start 03/09/25 07:53 Into Room 03/09/25 07:53 Procedure Start 03/09/25 08:08 Procedure End 03/09/25 08:22 Anesthesia End 03/09/25 08:26 Out of Room 03/09/25 08:26 Procedure Start Time: 08:08 Procedure Stop Time: 08:22 Select all DRAINS/GRAFTS/IMPLANTS that apply: None Special Medications: None Estimated Blood Loss: < 10 mL Fluids Replaced: 350 mL deficit Specimen collected: Yes Description of specimen(s) removed: Endometrial curettings Description of surgery: The patient was taken to the operating room where MAC anesthesia was induced and found to be adequate. She was prepped and draped in the dorsal lithotomy position using yellowfin stirrups. A weighted speculum was placed in the vagina to expose the cervix. The anterior lip of the cervix was grasped with a single-tooth tenaculum. The cervix was serially dilated to accommodate the Symphion hysteroscope. The Symphion hysteroscope was advanced into the uterus, and the uterus was distended with normal saline. Bilateral tubal ostia were visualized. There was a small possible polyp on the posterior aspect of the uterus. This polyp was resected using the Symphion resection device. The Symphion hysteroscope was then removed. A sharp curettage was performed for a moderate amount of tissue. The endometrial curettings and possible polyp were sent to pathology for review. Bleeding was scant. All instruments were removed from the vagina. A vaginal sweep was performed. Instrument, sponge, sharp counts were correct and the patient was taken to the recovery in stable condition. Surgical Findings: Possible small endometrial polyp on the posterior lower aspect of the uterus Otherwise normal uterine cavity with no lesions Uterus sounded to 8 cm Complications Complications: No Admit VTE Documentation VTE Present on Admission: No VTE Mechan Device Prophylaxis: SCD's
--- NOTE | 2025-03-09 08:33 | PCM.POST.ANE ---
Anesthesia: Postop Eval I Current Vital Signs Temperature: 98.3 F Pulse Rate: 77 Blood Pressure: 115/67 Respiratory Rate: 16 Pulse Ox: 98 Assessment Airway patent: Yes Spontaneous unlabored respirations: Yes nausea: No Vomiting: No Anesthesia Complication: No Fluid Hydration Crystalloid volume administer (ml): 400 Total IV fluid infused: 400 Progress Note Anesthesia document: Postop Eval 1 completed: Yes
--- NOTE | 2025-03-09 08:40 | POSTOPAN2_ITS ---
Anesthesia Postop Eval I Sum Postop Eval Completion status Anesthesia document: Postop Eval 1 completed: Yes Anesthesia Postop Eval I Summary Anesthesia Postop Eval I Summary: Anesthesia Postop Eval I: Assessment Summary Airway patent Yes 03/09/25 08:33 STAFF RADIATION THERAPIST.TNES Spontaneous unlabored Yes 03/09/25 08:33 STAFF RADIATION THERAPIST.TNES respirations Mental status nausea No 03/09/25 08:33 STAFF RADIATION THERAPIST.TNES Vomiting No 03/09/25 08:33 STAFF RADIATION THERAPIST.TNES Anesthesia Postop Eval I: Fluid Summary Crystalloid volume administer 400 03/09/25 08:33 STAFF RADIATION THERAPIST.TNES (ml) Colloids volume administered ( ml) Blood Product volume administered (ml) Total IV fluid infused 400 03/09/25 08:33 STAFF RADIATION THERAPIST.TNES Anesthesia Postop Eval I: Summary Notes Anesthesia Complication No 03/09/25 08:33 STAFF RADIATION THERAPIST.TNES Anesthesia Complication Comment: Post-operative progress note Anesthesia: Postop Eval II Evaluation Mental status: Awake Pain Level: 1 nausea: No Vomiting: No
--- NOTE | 2025-03-09 08:40 | PCM.POSTANE2 ---
Anesthesia Postop Eval I Sum Postop Eval Completion status Anesthesia document: Postop Eval 1 completed: Yes Anesthesia Postop Eval I Summary Anesthesia Postop Eval I Summary: Anesthesia Postop Eval I: Assessment Summary Airway patent Yes 03/09/25 08:33 RECREATION OFFICER.TNES Spontaneous unlabored Yes 03/09/25 08:33 RECREATION OFFICER.TNES respirations Mental status nausea No 03/09/25 08:33 RECREATION OFFICER.TNES Vomiting No 03/09/25 08:33 RECREATION OFFICER.TNES Anesthesia Postop Eval I: Fluid Summary Crystalloid volume administer 400 03/09/25 08:33 RECREATION OFFICER.TNES (ml) Colloids volume administered ( ml) Blood Product volume administered (ml) Total IV fluid infused 400 03/09/25 08:33 RECREATION OFFICER.TNES Anesthesia Postop Eval I: Summary Notes Anesthesia Complication No 03/09/25 08:33 RECREATION OFFICER.TNES Anesthesia Complication Comment: Post-operative progress note Anesthesia: Postop Eval II Evaluation Mental status: Awake Pain Level: 1 nausea: No Vomiting: No
== END 2025-03-09 09:36 | disposition home or self-care (01) ==
LOC: SDC 06:38 → AC 06:41
PROVIDERS: PCP Internal Medicine; Referring Provider Obstetrics & Gynecology; Visit Provider Obstetrics & Gynecology
DX: N84.0 Polyp of corpus uteri (principal); N92.0 Excessive and frequent menstruation with regular cycle
CPT/HCPCS: 58558; 00952; 81025; 85027; 86850; 86900; 86901; 88305; J2405